=== PATIENT | female | born 1970 | race Hispanic/Latino ===

== ENCOUNTER 2018-09-01 16:42 | Emergency (ER) | payer BC, OTHER ==
--- OUTSIDE RECORDS SUMMARY | 2018-09-01 16:45 | XMS REPORT | Summary of Care ---
:1970 Author Organization [facility] Address [address] [place] [id number]- Encounter HQ Encntr_taya(FIN) [id number] Date(s): 01/21/16 - 01/21/[address] Professional Services provided by [facility] [place] [address]- Final: Other secondary pulmonary hypertension Discharge Disposition: Home or Self Care Attending Physician: Maritza Gunn MD Admitting Physician: Maritza Gunn MD Vital Signs Most recent to oldest 1 2 3 [Reference Range]: Height 157.48 cm (01/21/16 9:25 AM) Temperature Oral [96.4-99.1 98.1 DegF DegF] (01/21/16 9:00 AM) Blood Pressure [90-140/60-90 109/58 mmHg 118/68 mmHg 132/74 mmHg mmHg] (01/21/16 11:00 AM) (01/21/16 10:00 AM) (01/21/16 9:25 AM) Respiratory Rate [14-20 23 BRMIN 22 BRMIN 14 BRMIN BRMIN] *HI* *HI* (01/21/16 11:30 AM) (01/21/16 12:00 PM) (01/21/16 11:45 AM) Weight 69.591 kg (01/21/16 9:25 AM) Body Mass Index 28.06 m2 (01/21/16 9:25 AM) Problem List No data available for this section Allergies, Adverse Reactions, Alerts Substance Reaction Severity Status NKDA Active Medications acetaminophen 650 mg, 2 tab, Route: PO, Drug form: TAB, Q4H, Dosing Weight 68.182, kg, PRN For Temp > 100.4 F, Start date: 01/21/16 7:49:00 LAN ENGINEER, Duration: 30 day, Stop date: 02/20/16 7:48:00 LAN ENGINEER Notes: Do not exceed 4 gm/day. (Same as: Tylenol) Start Date: 01/21/16 Stop Date: 01/21/16 Status: DiscontinuedCaltrate 600 + D 1 tab, PO, Daily, 0 Refill(s) Start Date: 01/21/16 Status: OrderedDextrose 50% Syringe 25 gm, 50 mL, Route: IVP, Drug Form: INJ, Dosing Weight 68.182, kg, PRN, PRN Blood Glucose Results, Start date: 01/21/16 7:46:00 LAN ENGINEER, Duration: 30 day, Stop date: 02/20/16 7:45:00 LAN ENGINEER Start Date: 01/21/16 Stop Date: 01/21/16 Status: DiscontinuedDextrose 50% Syringe 12.5 gm, 25 mL, Route: IVP, Drug Form: INJ, Dosing Weight 68.182, kg, PRN, PRN Blood Glucose Results, Start date: 01/21/16 7:46:00 LAN ENGINEER, Duration: 30 day, Stop date: 02/20/16 7:45:00 LAN ENGINEER Start Date: 01/21/16 Stop Date: 01/21/16 Status: DiscontinuedDuexis 800 mg-26.6 mg oral tablet 1 tab, PO, Q8H, PRN Pain, # 90 tab, 0 Refill(s) Start Date: 01/21/16 Stop Date: 02/20/16 Status: Orderedenoxaparin 40 mg, 0.4 mL, Route: SUB-Q, Drug form: INJ, [id number], Dosing Weight 68.182, kg , Start date: 01/21/16 8:00:00 LAN ENGINEER, Duration: 30 day, Stop date: 02/19/16 8:00: 00 LAN ENGINEER Notes: (Same as: Lovenox) Start Date: 01/21/16 Stop Date: 01/21/16 Status: Discontinuedesomeprazole 20 mg oral delayed release capsule 20 mg=1 cap, PO, Daily, # 30 cap, 1 Refill(s) Start Date: 01/21/16 Status: Orderedglucagon 1 mg, Route: IM, Drug form: PDR/INJ, PRN, Dosing Weight 68.182, kg, PRN Blood Glucose Results, Startdate: 01/21/16 7:46:00 LAN ENGINEER, Duration: 30 day, Stop date: 02/20/16 7:45:00 LAN ENGINEER Start Date: 01/21/16 Stop Date: 01/21/16 Status: Discontinuedinsulin aspart 2 unit, 0.02 mL, Route: SUB-Q, Drug form: SOLN, TID-Before Meals, Dosing Weight 68.182, kg, PRN Blood Glucose Results, Start date: 01/21/16 7:46:00 LAN ENGINEER, Duration: 30 day, Stop date: 02/20/16 7:45:00 LAN ENGINEER Notes: Roll in palms of hands gently; Do not shake vigorously. (Same as: Lendinero)"single patient use only"WASTE: F/P - Black; E - Municipal Trash Bin Stable for 28 days at room temperature.Expires in days from Date Start Date: 01/21/16 Stop Date: 01/21/16 Status: Discontinuedinsulin aspart 1 unit, 0.01 mL, Route: SUB-Q, Drug form: SOLN, TID-Before Meals, Dosing Weight 68.182, kg, PRN Blood Glucose Results, Start date: 01/21/16 7:46:00 LAN ENGINEER, Duration: 30 day, Stop date: 02/20/16 7:45:00 LAN ENGINEER Notes: Roll in palms of hands gently; Do not shake vigorously. (Same as: Lendinero)"single patient use only"WASTE: F/P - Black; E - Municipal Trash Bin Stable for 28 days at room temperature.Expires in days from Date Start Date: 01/21/16 Stop Date: 01/21/16 Status: Discontinuedinsulin aspart 3 unit, 0.03 mL, Route: SUB-Q, Drug form: SOLN, TID-Before Meals, Dosing Weight 68.182, kg, PRN Blood Glucose Results, Start date: 01/21/16 7:46:00 LAN ENGINEER, Duration: 30 day, Stop date: 02/20/16 7:45:00 LAN ENGINEER Notes: Roll in palms of hands gently; Do not shake vigorously. (Same as: NovoLOG)"single patient use only"WASTE: F/P - Black; E - Municipal Trash Bin Stable for 28 days at room temperature.Expires in days from Date Start Date: 01/21/16 Stop Date: 01/21/16 Status: Discontinuedinsulin aspart 5 unit, 0.05 mL, Route: SUB-Q, Drug form: SOLN, TID-Before Meals, Dosing Weight 68.182, kg, PRN Blood Glucose Results, Start date: 01/21/16 7:46:00 LAN ENGINEER, Duration: 30 day, Stop date: 02/20/16 7:45:00 LAN ENGINEER Notes: Roll in palms of hands gently; Do not shake vigorously. (Same as: NovoLOG)"single patient use only"WASTE: F/P - Black; E - Municipal Trash Bin Stable for 28 days at room temperature.Expires in days from Date Start Date: 01/21/16 Stop Date: 01/21/16 Status: Discontinuedinsulin aspart 4 unit, 0.04 mL, Route: SUB-Q, Drug form: SOLN, TID-Before Meals, Dosing Weight 68.182, kg, PRN Blood Glucose Results, Start date: 01/21/16 7:46:00 LAN ENGINEER, Duration: 30 day, Stop date: 02/20/16 7:45:00 LAN ENGINEER Notes: Roll in palms of hands gently; Do not shake vigorously. (Same as: NovoLOG)"single patient use only"WASTE: F/P - Black; E - Municipal Trash Bin Stable for 28 days at room temperature.Expires in days from Date Start Date: 01/21/16 Stop Date: 01/21/16 Status: DiscontinuedNIFEdipine 30 mg oral tablet, extended release 30 mg=1 tab, PO, Daily, # 90 tab, 1 Refill(s) Start Date: 01/21/16 Status: Orderednystatin topical 100,000 units/g powder 1 appl, Route: TOP, PRN, Drug form: PWDR, PRN For Fungal Prophylaxis, Start date : 01/21/16 7:49:00 LAN ENGINEER, Duration: 30 day, Stop date: 02/20/16 7:48:00 LAN ENGINEER Notes: (Same as:Mycostatin, Nilstat) For external use only. Start Date: 01/21/16 Stop Date: 01/21/16 Status: DiscontinuedProAir HFA 1 - 2 puffs, PO, Q4H, PRN Wheezing / cough / shortness of breath, # 1 ea, 0 Refill(s) Start Date: 01/21/16 Stop Date: 02/15/16 Status: OrderedProventil HFA 90 mcg/inh inhalation aerosol with adapter 1 puff, INHALER, QID, PRN for wheezing, # 25 gm, 0 Refill(s) Start Date: 01/21/16 Status: OrderedSaline Flush 0.9% 10 ml, Route: MISC, Drug Form: INJ, Dosing Weight 68.182, kg, Q12H, Start date: 01/21/16 9:00:00 LAN ENGINEER, Duration: 30 day, Stop date: 02/19/16 21:00:00 LAN ENGINEER Notes: (Same as: BD Posiflush) Start Date: 01/21/16 Stop Date: 01/21/16 Status: DiscontinuedSaline Flush 0.9% 10 ml, Route: MISC, Drug Form: INJ, Dosing Weight 68.182, kg, PRN, PRN Line Flush, Start date: 01/21/16 7:49:00 LAN ENGINEER, Duration: 30 day, Stop date: 02/20/16 7 :48:00 LAN ENGINEER Notes: (Same as: BD Posiflush) Start Date: 01/21/16 Stop Date: 01/21/16 Status: DiscontinuedSynthroid 25 mcg (0.025 mg) oral tablet 25 microgram=1 tab, PO, Daily, # 90 tab, 1 Refill(s) Start Date: 01/21/16 Status: Ordered Results ELECTROLYTES Most recent to oldest [Reference Range]: 1 Sodium Lvl [135-145 mEq/L] 140 mEq/L (01/21/16 7:59 AM) Potassium Lvl [3.5-5.1 mEq/L] 3.8 mEq/L (01/21/16 7:59 AM) Chloride Lvl [95-109 mEq/L] 110 mEq/L *HI* (01/21/16 7:59 AM) CO2 [24-32 mEq/L] 22 mEq/L *LOW* (01/21/16 7:59 AM) AGAP [10.0-20.0 mEq/L] 11.8 mEq/L (01/21/16 7:59 AM) CHEM PANEL Most recent to oldest [Reference Range]: 1 Creatinine Lvl [0.50-1.40 mg/dL] 0.48 mg/dL *LOW* (01/21/16 7:59 AM) eGFR 119 mL/min/1.73m2 1 *NA* (01/21/16 7:59 AM) BUN [7-22 mg/dL] 14 mg/dL (01/21/16 7:59 AM) Glucose Lvl [70-99 mg/dL] 91 mg/dL (01/21/16 7:59 AM) Calcium Lvl [8.5-10.5 mg/dL] 8.4 mg/dL *LOW* (01/21/16 7:59 AM) Phosphorus [2.5-4.5 mg/dL] 2.7 mg/dL (01/21/16 7:59 AM) Magnesium Lvl [1.8-2.4 mg/dL] 2.0 mg/dL (01/21/16 7:59 AM) Lactic Acid Lvl [0.5-2.2 mMol/L] 0.6 mMol/L (01/21/16 7:59 AM) 1Result Comment: The eGFR is calculated using the CKD-EPI formula. In most young , healthy individualsthe eGFR will be >90 mL/min/1.73m2. The eGFR declines with age. An eGFR of 60-89 may be normal in some populations, particularly the elderly, for whom the CKD-EPI formula has not been extensively validated. Use of the eGFR is not recommended in the following populations: Individuals with unstable creatinine concentrations, including patients and those with serious co-morbid conditions. Patients with extremes in muscle mass or diet. The data above are obtained from the National Kidney Disease Education Program ( NKDEP) which additionally recommends that when the eGFR is used in patients with extremes of body mass index for purposesof drug dosing, the eGFR should be multiplied by the estimated BMI.CARDIAC ENZYMES Most recent to oldest [Reference Range]: 1 proBNP [0-125 pg/mL] 29 pg/mL (01/21/16 7:59 AM) PARATHYROID PROFILE Most recent to oldest [Reference Range]: 1 Ca Ion WB [1.05-1.25 mMol/L] 1.09 mMol/L (01/21/16 7:59 AM) Ca Norm WB [1.05-1.25 mMol/L] 1.09 mMol/L (01/21/16 7:59 AM) HEMATOLOGY Most recent to oldest [Reference Range]: 1 WBC [3.7-10.4 K/CMM] 6.6 K/CMM (01/21/16 7:59 AM) RBC [4.20-5.40 M/CMM] 4.45 M/CMM (01/21/16 7:59 AM) Hgb [12.0-16.0 g/dL] 13.4 g/dL (01/21/16 7:59 AM) Hct [36.0-48.0 %] 40.4 % (01/21/16 7:59 AM) MCV [80.0-98.0 fL] 90.7 fL (01/21/16 7:59 AM) MCH [27.0-31.0 pg] 30.2 pg (01/21/16 7:59 AM) MCHC [32.0-36.0 g/dL] 33.3 g/dL (01/21/16 7:59 AM) RDW [11.5-14.5 %] 13.8 % (01/21/16 7:59 AM) Platelet [133-450 K/CMM] 229 K/CMM (01/21/16 7:59 AM) MPV [7.4-10.4 fL] 9.2 fL (01/21/16 7:59 AM) Segs [45.0-75.0 %] 67.3 % (01/21/16 7:59 AM) Lymphocytes [20.0-40.0 %] 21.9 % (01/21/16 7:59 AM) Monocytes [2.0-12.0 %] 8.1 % (01/21/16 7:59 AM) Eosinophils [0.0-4.0 %] 1.7 % (01/21/16 7:59 AM) Basophils [0.0-1.0 %] 1.0 % (01/21/16 7:59 AM) Segs-Bands # [1.5-8.1 K/CMM] 4.4 K/CMM (01/21/16 7:59 AM) Lymphocytes # [1.0-5.5 K/CMM] 1.4 K/CMM (01/21/16 7:59 AM) Monocytes # [0.0-0.8 K/CMM] 0.5 K/CMM (01/21/16 7:59 AM) Eosinophils # [0.0-0.5 K/CMM] 0.1 K/CMM (01/21/16 7:59 AM) Basophils # [0.0-0.2 K/CMM] 0.1 K/CMM (01/21/16 7:59 AM) PT [12.0-14.7 seconds] 13.9 seconds (01/21/16 7:59 AM) INR [0.85-1.17] 1.05 (01/21/16 7:59 AM) PTT [22.9-35.8 seconds] 34.5 seconds (01/21/16 7:59 AM) Immunizations No data available for this section Procedures Procedure Date Related Diagnosis Body Site hysterectomy Social History Social History Type Response Substance Abuse Use: None. Alcohol Never Smoking Status Never smoker; Exposure to Tobacco Smoke None; Cigarette Smoking Last 365 Days No; Reg Smoking Cessation Counseling No Assessment and Plan No data available for this section
--- OUTSIDE RECORDS SUMMARY | 2018-09-01 16:45 | XMS REPORT | Summary of Care ---
:1970 Author Organization [facility] Address [address] [place] [id number]- Encounter HQ Jamalntr_taya(FIN) [id number] Date(s): 10/16/15 - 10/16/[address] [address]- Discharge Disposition: Home or Self Care Attending Physician: Maritza Gunn MD Referring Physician: Maritza Gunn MD Vital Signs Most recent to oldest [Reference Range]: 1 Height 165.1 cm (10/16/15 2:17 PM) Weight 68.182 kg (10/16/15 2:17 PM) Body Mass Index 25.01 m2 (10/16/15 2:17 PM) Problem List No data available for this section Allergies, Adverse Reactions, Alerts Substance Reaction Severity Status NKDA Active Medications No data available for this section Results No data available for this section Immunizations No data available for this section Procedures No data available for this section Social History Social History Type Response Assessment and Plan No data available for this section
--- OUTSIDE RECORDS SUMMARY | 2018-09-01 16:45 | XMS REPORT | Summary of Care ---
:1970 Author Care Team Providers Name Role Phone Maritza Gunn Primary Care Physician Encounter HQ Encntr_alias([facility]) [id number] Date(s): 05/28/14 - 05/28/[address] Discharge Disposition: Home Physician Attending: Maritza Gunn MD Physician_Referring: Maritza Gunn MD Vital Signs No data available for this section Problem List No data available for this [...]
--- OUTSIDE RECORDS SUMMARY | 2018-09-01 16:45 | XMS REPORT | Clinical Summary ---
:1970 Author Organization [facility] Address [address] [place] [address] Care Team Providers Name Role Phone Beti Guadalupe Primary Care Provider Allergies No Known Allergies Medications Medication Sig Dispensed Refills Start Date End Date Status cyanocobalamin 1,000 INJECT 1 CC SQ 3 11/20/2016 Active mcg/mL injection EVERY WEEK X 3 MONTHS, THEN 1 CC SQ TWICE A MONTH X 2 MONTHS, THEN 1 CC SQ MONTHLY esomeprazole (NexIUM) 20 Take 20 mg by 1 12/19/2016 Active MG capsule mouth once daily. furosemide (LASIX) 20 mg TAKE 1 TABLET 0 01/24/2017 Active tablet DAILY DIRECTED. hydroCHLOROthiazide Take 25 mg by 11 12/12/2016 Active (HYDRODIURIL) 25 MG mouth once tablet daily. hydrOXYzine (ATARAX) 25 Take 25 mg by 4 01/21/2017 Active MG tablet mouth nightly as needed. levothyroxine (SYNTHROID, TAKE 1 TABLET 1 12/16/2016 Active LEVOXYL) 50 mcg tablet BY MOUTH 30 MINUTES BEFORE BREAKFAST NIFEdipine XL (PROCARDIA Take 30 mg by 1 12/19/2016 Active XL) 30 MG 24 hr tablet mouth once daily. NIFEdipine CC (ADALAT CC) TAKE 1 TABLET 0 12/12/2016 Active 30 MG 24 hr tablet DAILY DIRECTED. pilocarpine (SALAGEN) 5 Take 5 mg by 5 01/15/2017 Active MG tablet mouth 3 (three) times a day. potassium chloride TAKE 1 PACKET 0 01/25/2017 Active (KLOR-CON) 20 mEq packet BY MOUTH DAILY. tiZANidine (ZANAFLEX) 4 Take 4 mg by 0 12/12/2016 Active MG tablet mouth nightly. albuterol (PROAIR Inhale 2 puffs 0 Active HFA,PROVENTIL every 6 (six) HFA,VENTOLIN HFA) 90 hours as needed mcg/actuation inhaler for wheezing. tafluprost, PF, (ZIOPTAN, 1 drop daily. 0 Active PF,) 0.0015 % dropperette Active Problems No known active problems Family History Medical History Relation Name Comments Hypertension Father Heart disease Maternal Grandfather Diabetes Maternal Grandmother Hypertension Mother Migraines Mother Relation Name Status Comments Father Alive Maternal Grandfather Maternal Grandmother Mother Alive Social History Tobacco Use Types Packs/Day Years Used Date Never Smoker Smokeless Tobacco: Never Used Tobacco Cessation: Counseling Given: No Alcohol Use Drinks/Week oz/Week Comments Yes 2 Glasses of wine 1.2 per week Sex Assigned at Date Recorded Not on file Job Start Date Occupation Industry Not on file Not on file Not on file Travel History Travel Start Travel End No recent travel history available. Last Filed Vital Signs Not on file Plan of Treatment Health Maintenance Due Date Last Done Comments INFLUENZA VACCINE 09/20/2018 Results Not on fileafter 08/31/2017 Advance Directives Patient has advance care planning documents on file. For more information, please contact:[place] [address]
--- OUTSIDE RECORDS SUMMARY | 2018-09-01 16:45 | XMS REPORT | Summary of Care ---
:1970 Author Organization [facility] Address [address] [place], [place] [address]- Encounter HQ Encntr_alias(FIN) [id number] Date(s): 01/11/16 - 01/11/[address] [address]- Discharge Disposition: Home or Self Care Attending Physician: Maritza Gunn MD Referring Physician: Maritza Gunn MD Vital Signs No data [...]
--- OUTSIDE RECORDS SUMMARY | 2018-09-01 16:45 | XMS REPORT | Continuity of Care Document ---
:1970 Author Organization [employer] Care Team Providers Name Role Phone [employer] Unavailable Unavailable Problems Problem Status Onset Classification Date Comments Source Date Reported SHORTNESS OF Active [facility] BREATH 9 Medical Center CCL/ RHC Active [address] 6 MFU Active [address] BDDC-DYSPHAGIA Active [address] NEW PT CONSULT Active [address] R06.2 - WHEEZING Active [facility] [address] [place] RT HEART CATH, Active [facility] PULM ART 6 Medical HYPERTENSION Center R06.02 - Active [facility] SHORTNESS OF [address] [place] BREATH R06.02 - Active [facility] SHORTNESS OF 6 [place] BREATH M34.9 - "SY R06.2/ M34.9/ Active [facility] 6 Medical Center SECONDARY Active [facility] PULMONARY Medical HYPERTENSION; Center SHORTN ASTHMA; RAYNAUDS Active [facility] PHENOMENON; 6 Medical SECONDARY P Center ASTHMA Active [place] [id number] [facility] Final: Other 01/24/2016 [facility] secondary Medical pulmonary Center hypertension OTHER SECONDARY Active [facility] PULMONARY [facility] HYPERTENSION Center Medications Medication Details Route Status Patient Ordering Order Source Instructions Provider Date Famotidine 26.6 1 tab, PO, Active [facility] MG / Ibuprofen Q8H, PRN 016 Medical 800 MG Oral Pain, # 90 Center Tablet [Duexis] tab, 0 Refill(s) Levothyroxine 25 Active [facility] Sodium 0.025 MG microgram=1 016 Medical Oral Tablet tab, PO, Center [Synthroid] Daily, # 90 tab, 1 Refill(s) 200 ACTUAT 1 puff, Active [facility] Albuterol 0.09 INHALER, 016 Medical MG/ACTUAT QID, PRN for Center Metered Dose wheezing, # Inhaler 25 gm, 0 [Proventil] Refill(s) Caltrate 600 + D 1 tab, PO, Active [facility] Daily, 0 016 Medical Refill(s) Center ProAir HFA 1 - 2 puffs, Active [facility] PO, Q4H, PRN 016 Medical Wheezing / Center cough / shortness of breath, # 1 ea, 0 Refill(s) 24 HR Nifedipine 30 mg=1 tab, Active [place] 30 MG Extended PO, Daily, # 016 Medical Release Tablet 90 tab, 1 Center Refill(s) Esomeprazole 20 20 mg=1 cap, Active [facility] MG Enteric PO, Daily, # 016 Medical Coated Capsule 30 cap, 1 Center Refill(s) Saline Flush 10 ml, Inactive [facility] 0.9% [facility]: Center INJ, Dosing Weight 68.182, kg, Q12H, Start date: 01/21/16 9:00:00 PHARMACY MANAGER, Duration: 30 day, Stop date: 02/19/16 21:00:00 CSTNotes: (Same as: BD Posiflush) Enoxaparin 40 mg, 0.4 Inactive [facility] mL, Route: [facility] SUB-Q, Drug Center form: INJ, [id number], Dosing Weight 68.182, kg, Start date: 01/21/16 8:00:00 PHARMACY MANAGER, Duration: 30 day, Stop date: 02/19/16 8:00:00 CSTNotes: (Same as: Lovenox) Saline Flush 10 ml, Inactive [facility] 0.9% Route: [facility] Form: Center INJ, Dosing Weight 68.182, kg, PRN, PRN Line Flush, Start date: 01/21/16 7:49:00 PHARMACY MANAGER, Duration: 30 day, Stop date: 02/20/16 7:48:00 CSTNotes: (Same as: BD Posiflush) Acetaminophen 650 mg, 2 Inactive [facility] tab, Route: [facility] PO, Drug Center form: TAB, Q4H, Dosing Weight 68.182, kg, PRN For Temp > 100.4 F, Start date: 01/21/16 7:49:00 PHARMACY MANAGER, Duration: 30 day, Stop date: 02/20/16 7:48:00 CSTNotes: Do not exceed 4 gm/day. (Same as: Tylenol) Nystatin 100 1 appl, Inactive [facility] UNT/MG Topical Route: TOP, [facility] Medical Powder PRN, Drug Center form: PWDR, PRN For Fungal Prophylaxis, Start date: 01/21/16 7:49:00 PHARMACY MANAGER, Duration: 30 day, Stop date: 02/20/16 7:48:00 CSTNotes: (Same as:Mycostati n, Nilstat) For external use only. Insulin, Aspart, 2 unit, 0.02 Inactive [facility] Human mL, Route: 016 Medical SUB-Q, Drug Center form: SOLN, TID-Before Meals, Dosing Weight 68.182, kg, PRN Blood Glucose Results, Start date: 01/21/16 7:46:00 PHARMACY MANAGER, Duration: 30 day, Stop date: 02/20/16 7:45:00 CSTNotes: Roll in palms of hands gently; Do not shake vigorously. (Same as: NovoLOG) "single patient use only" WASTE: F/P - Black; E - Municipal Trash Bin Stable for 28 days at room temperature. Expires in days from __Date Dextrose 50% 25 gm, 50 Inactive [facility] Syringe mL, Route: 016 Medical IVP, Drug Center Form: INJ, Dosing Weight 68.182, kg, PRN, PRN Blood Glucose Results, Start date: 01/21/16 7:46:00 PHARMACY MANAGER, Duration: 30 day, Stop date: 02/20/16 7:45:00 PHARMACY MANAGER Glucagon 1 mg, Route: Inactive [facility] IM, Drug 016 Medical form: Center PDR/INJ, PRN, Dosing Weight 68.182, kg, PRN Blood Glucose Results, Start date: 01/21/16 7:46:00 PHARMACY MANAGER, Duration: 30 day, Stop date: 02/20/16 7:45:00 PHARMACY MANAGER Allergies, Adverse Reactions, Alerts No Known Medication Allergies Immunizations No Data Provided for This Section Results Order Name Results Value Reference Date Interpretation Comments Source Range CARDIAC proBNP 29 0 - 125 01/20 [facility] ENZYMES [facility] CHEM PANEL Magnesium Lvl 2.0 1.8 - 2.4 01/20 [facility]2015 [facility] CHEM PANEL Lactic Acid 0.6 0.5 - 2.2 01/20 [facility] Lvl /2015 [facility] CHEM PANEL Phosphorus 2.7 2.5 - 4.5 01/20 [facility]2015 [facility] ELECTROLYTES AGAP 11.8 10.0 - 12 [facility] 20.0 [facility] ELECTROLYTES eGFR 119 01/20 [facility] Comment: The [facility] eGFR is Center calculated using the CKD-EPI formula. In most young, healthy individuals the eGFR will be >90 mL/min/1.73m2 . The eGFR declines with age. An eGFR of 60-89 may be normal in some populations, particularly the elderly, for whom the CKD-EPI formula has not been extensively validated. Use of the eGFR is not recommended in the following populations:< br/>
Ayde viduals with unstable creatinine concentration s, including patients and those with serious co-morbid conditions.<b r/>
Patie nts with extremes in muscle mass or diet.

The data above are obtained from the National Kidney Disease Education Program (NKDEP) which additionally recommends that when the eGFR is used in patients with extremes of body mass index for purposes of drug dosing, the eGFR should be multiplied by the estimated BMI. ELECTROLYTES BUN 14 7 - 22 01/20 [facility] ELECTROLYTES Creatinine 0.48 0.50 - 01/20 [facility] Lvl 1.40 [facility] ELECTROLYTES Sodium Lvl 140 135 - 145 01/[address] ELECTROLYTES Potassium Lvl 3.8 3.5 - 5.1 01/[address] ELECTROLYTES Calcium Lvl 8.4 8.5 - 10.5 01/[address] ELECTROLYTES CO2 22 24 - 32 01/[address] ELECTROLYTES Chloride Lvl 110 95 - 109 01/[address] ELECTROLYTES Glucose Lvl 91 70 - 99 01/20 [facility]2015 [facility] HEMATOLOGY Hgb 13.4 12.0 - 12 [facility] 16.0 [facility] HEMATOLOGY RBC 4.45 4.20 - 12/ [place] 5.40 /2016 [facility] HEMATOLOGY WBC 6.6 3.7 - 10.4 12/ [facility] HEMATOLOGY MCH 30.2 27.0 - 12/ [place] 31.0 /2016 [facility] HEMATOLOGY Hct 40.4 36.0 - 12/ [place] 48.0 /2016 [facility] HEMATOLOGY MCV 90.7 80.0 - 12/ [place] 98.0 /2016 [facility] HEMATOLOGY MPV 9.2 7.4 - 10.4 12/ [facility] HEMATOLOGY Platelet 229 133 - 450 12/ [facility] HEMATOLOGY MCHC 33.3 32.0 - 12/ [place] 36.0 /2015 [facility] HEMATOLOGY RDW 13.8 11.5 - 12 [place] 14.5 /2015 [facility] HEMATOLOGY INR 1.05 0.85 - 01/20 [place] 1.17 /2015 [facility] HEMATOLOGY PTT 34.5 22.9 - 12 [place] 35.8 /2016 [facility] HEMATOLOGY PT 13.9 12.0 - 12 [place] 14.7 /2015 [facility] HEMATOLOGY Lymphocytes 21.9 20.0 - 12/ [place] 40.0 /2016 [facility] HEMATOLOGY Segs 67.3 45.0 - 12/ [place] 75.0 /2016 [facility] HEMATOLOGY Segs-Bands # 4.4 1.5 - 8.1 12 [facility] HEMATOLOGY Basophils 1.0 0.0 - 1.0 12 [facility] HEMATOLOGY Monocytes 8.1 2.0 - 12.0 12 [facility] HEMATOLOGY Eosinophils 1.7 0.0 - 4.0 12 [facility] HEMATOLOGY Monocytes # 0.5 0.0 - 0.8 12 [facility] HEMATOLOGY Lymphocytes # 1.4 1.0 - 5.5 12 [facility] HEMATOLOGY Basophils # 0.1 0.0 - 0.2 12 [facility] HEMATOLOGY Eosinophils # 0.1 0.0 - 0.[address] [place] [address] PARATHYROID Ca Norm WB 1.09 1.05 - 01/20 [place] PROFILE 1.25 [facility] PARATHYROID Ca Ion WB 1.09 1.05 - [facility] PROFILE . [facility] Pathology Reports No Data Provided for This Section Diagnostic Reports Report Value Date Source Chest Pulmonary EXAM: CTA CHEST WITH CONTRAST, PULMONARY EMBOLISM PROTOCOL 03/02/2017 [facility] [place] Embolism CTA DATE: 03/02/2017 3:22 PM PHARMACY MANAGER INDICATION: - R06.02 Shortness of breath COMPARISON: There is a noncontrast CT chest 01/12/2016 TECHNIQUE: Volumetric CT acquisition of the chest, during pulmonary arterial phase, after intravenous contrast. Axial, sagittal, coronal, and oblique MIP reconstructions are created at the acquisition workstation. IV Contrast: 100 mL of Omnipaque 350 DLP: 880 mGy-cm FINDINGS: Lines and tubes: None. Lower neck: Visualized thyroid gland and lower neck are within normal limits. Heart and Mediastinum: The right atrium and right ventricle are enlarged however the left atrium and left ventricle are normal in size. A small amount of contrast refluxes into the IVC. There is no pericardial effusion. No appreciable atherosclerotic disease of the coronary arteries were the aorta. The aorta and the pulmonary trunk are normal in caliber. There is no pulmonary embolus. Lymph Nodes: There is no hilar, mediastinal, axillary or internal mammary lymphadenopathy. Lungs, airways, and pleura: No obvious pleural effusion. Please note that the costophrenic sulcus on the right side is not included on this exam. Airways are normal in caliber. There is subsegmental atelectasis in the lingula. There is a 2 mm nodule in the right upper lobe abutting the major fissure on axial image 158. There is also a 2 mm nodule in the right lung base on axial image 47. Calcified granulomas are scattered throughout both lungs. Esophagus and Upper abdomen: There are calcified granulomas throughout the spleen. Otherwise the visualized upper abdomen is within normal limits. Bones and soft tissues: No gross bony abnormalities. There is increased venous collateral flow in the left upper extremity and left chest wall. IMPRESSION: 1. There is no pulmonary embolus. 2. Enlargement of the right atrium and right ventricle as well as contrast reflux into the IVC is indicative of elevated right heart pressures. Further evaluation with echocardiography is suggested. 3. Subsegmental atelectasis in the lingula. 4. Prior granulomatous disease. 5. Venous collaterals in the left upper extremity and left chest may be due to increased central venous pressures or this may be due to narrowing of disc left subclavian vein caused by positioning of th e patient's left upper extremity. However if clinically warranted, an ultrasound can be used to evaluate for stenosis of the left subclavian vein. Ext Lower Venous EXAM: US BILATERAL LOWER EXTREMITY VENOUS DOPPLER 2017 MIN [facility] Doppler Bilat US DATE: 03/02/2017 2:42 PM PHARMACY MANAGER INDICATION: Bilateral leg swelling. Secondary pulmonary hypertension. COMPARISON: None. TECHNIQUE: Multiplanar grayscale, color Doppler and spectral Doppler ultrasound of the bilateral lower extremity veins. FINDINGS: Right Thigh Veins: Common Femoral: Patent. Femoral (SFV): Patent. Popliteal: Patent. Proximal Greater Saphenous: Patent. Deep Femoral Veins: Patent. Left Thigh Veins: Common Femoral: Patent. Femoral (SFV): Patent. Popliteal: Patent. Proximal Greater Saphenous: Patent. Deep Femoral Veins: Patent. Other: None. IMPRESSION: 1. No deep venous thrombosis (DVT) at the bilateral lower extremities. Chest 1view DX EXAM: XR CHEST 1 VIEW 01/21/2016 [facility] DATE: 01/21/2016 7:52 AM PHARMACY MANAGER Center INDICATION: Crackles COMPARISON: None FINDINGS: Right IJ [place] catheters present with tip overlying the right pulmonary artery. The cardiac silhouette is mildly enlarged. No central pulmonary venous congestion is identified, however. While evalua tion is limited given semi-erect positioning, no distinct pneumothorax is identified. No focal consolidation is present. IMPRESSION: 1. Right IJ [place] catheter. 2. Mild cardiomegaly. Chest wo contrast CT EXAM: CT CHEST WITHOUT CONTRAST 01/12/2016 MIN [facility] DATE: 01/12/2016 9:14 AM PHARMACY MANAGER INDICATION: R06.02 Shortness of breath COMPARISON: None TECHNIQUE: Volumetric CT acquisition of the chest was performed without intravenous contrast. Axial, sagittal and coronal reconstructions. High- resolution technique. IV Contrast: None. DLP: 767 mGy-cm FINDINGS: Lines and Tubes: None. Heart and Great Vessels: The aorta and main pulmonary artery measure 3.1 and 2.4 cm. respectively. The cardiothoracic radio measures 12/27. No significant pericardial effusion is present. No significa nt coronary artery vascular calcifications are present. Coronary artery branching pattern and great vessel branching pattern of the aortic arch are routine. Lymph Nodes: Limited given lack of IV contrast. No distinct suspicious adenopathy. Lungs: No significant pleural effusion is present. There is minimal biapical scarring with no pneumothorax identified. Trachea and central bronchi are unremarkable. Minimal dependent atelectasis is pre sent. No fibrosis, bronchiectasis, mosaic attenuation/air trapping, or significant reticular opacities are identified. No focal consolidation or suspicious pulmonary nodule is identified. There are a fe w tiny calcified granulomata at the right lung base. Upper abdomen: Splenic granulomata are present. Upper abdomen otherwise unremarkable. Bones and Soft Tissues: No acute osseous findings. IMPRESSION: 1. Essentially unremarkable high resolution CT of the chest. Specifically, no honeycombing, bronchiectasis, air trapping, or fibrotic changes are identified. 2. Evidence of prior granulomatous disease. Lung EXAM: NM Pulmonary Ventilation and Perfusion Imaging 01/11/2016 [facility] ventilation/perfusion DATE: 01/11/2016 10:26 AM [facility] Center scan NM INDICATION: shortness of breath/Systemic Sclerosis TECHNIQUE: After inhalation of 22.3 mCi of Xe-133 gas posterior images of the lungs were obtained. Subsequently, the patient was injected with 2.8 mCi of Tc-99m MAA and multiple static images of the lungs were obtained in different projections. FINDINGS: Ventilation images demonstrate homogeneous uptake in the lungs. Subsequently there is slightly delayed washout of xenon gas with minimal evidence of air trapping in the right lung base. Perfusion images demonstrate homogeneous uptake in the lungs. There are no segmental or subsegmental perfusion defects seen on perfusion images to suggest pulmonary embolism. IMPRESSION: Low probability for pulmonary embolism. Minimal air trapping in right lower lung. Consultation Notes No Data Provided for This Section Discharge Summaries No Data Provided for This Section History and Physicals No Data Provided for This Section Vital Signs Vital Sign Value Date Comments Source Respitory Rate 23 01/21/2016 [facility] Respitory Rate 22 01/21/2016 [facility] Respitory Rate 14 01/21/2016 [facility] Systolic (mm Hg) 109 01/21/2016 [facility] Diastolic (mm Hg) 58 01/21/2016 [facility] Systolic (mm Hg) 118 01/21/2016 [facility] Diastolic (mm Hg) 68 01/21/2016 [facility] Systolic (mm Hg) 132 01/21/2016 [facility] Diastolic (mm Hg) 74 01/21/2016 [facility] Weight 69.591 01/21/2016 [facility] Height 157.48 cm 01/21/2016 [facility] BMI Calculated 28.06 01/21/2016 [facility] Temperature Oral (F) 98.1 F 01/21/2016 [facility] Weight 68.182 10/16/2015 [facility] Height 165.1 cm 10/16/2015 [facility] BMI Calculated 25.01 10/16/2015 [facility] Encounters Location Location Encounter Encounter Reason Attending ADM DC Status Source Details Type Number For Provider Date Date Visit [facility] [id number] Maritza Gunn 05/28 05/29 [facility]2014 [facility] Out[facility] [id number] Maritza Gunn 10/15 10/16 [facility] [id number] Maritza Gunn 01/10 01/11 [id number] Maritza Gunn 01/11 01/12 [facility]2015 [facility] Inpatient [id number] Maritza Gunn 01/20 01/20 [facility] Procedures Procedure Code Date Perfomer Comments Source [id number] [facility] Assessment and Plan No Data Provided for This Section Plan of Care No Data Provided for This Section Social History Social History Date Source Social History TypeResponse 01/21/2016 [facility] Substance Abuse Use: None. Alcohol Never Smoking Status Never smoker; Exposure to Tobacco Smoke None; Cigarette Smoking Last 365 Days No; Reg Smoking Cessation Counseling No Social History TypeResponse 01/13/2016 [facility] Family History No Data Provided for This Section Advance Directives No Data Provided for This Section Functional Status No Data Provided for This Section
--- OUTSIDE RECORDS SUMMARY | 2018-09-01 16:45 | XMS REPORT | Summary of Care ---
:1970 Author Organization [facility] Address [address] [place], [place] [id number]- Encounter HQ Encntr_alias(FIN) [id number] Date(s): 01/12/16 - 01/12/16 [facility] [place] [id number] [place] [address]- [phone] Discharge Disposition: Home or Self Care Attending Physician: Maritza Gunn MD Vital Signs No [...]
--- OUTSIDE RECORDS SUMMARY | 2018-09-01 16:45 | XMS REPORT ---
:1970 Author Organization [facility] Address [address] [place] [address] Dr. Carmona [address] [place] [id number] Care Team Providers Name Role Phone Unavailable Unavailable Unavailable Problems This patient has no known problems. Allergies, Adverse Reactions, Alerts This patient has no known allergies or adverse reactions. Medications This patient has no known medications. Encounters Start End Encounter Admission Attending Care Care Encounter Date/Time Date/Time Type Type Clinicians Facility Department ID 2018-07-11 2018-07-11 Outpatient [facility] [id number] 09:30:00 09:30:00
[2018-09-01] MEDS ORDERED: KETOROLAC 30 MG/ML INJ ONE (17:52)
[2018-09-01] MEDS ORDERED: NA CHLORIDE 0.9% 1,000 ML ONE (17:52)
[2018-09-01] MEDS ORDERED: CLINDAMYCIN 900MG/D5W 900 MG/50 ML IVPB IV ONE (17:52)
[2018-09-01 18:06] LABS: Absolute Lymphocytes (CBC) 1.8 K/uL (0.7-4.9); Basophils % 0.6 % (0-1.3); Eosinophils % 2.3 % (0-4.4); Hematocrit 40.9 % (36.0-45.0); Lymphocytes % 20.7 % (15.3-44.8); MPV 8.6 fL (7.6-11.3); Monocytes % 8.3 % (3.3-12.3); RBC Red Blood Cell Count 4.47 M/uL (3.86-4.86)
[2018-09-01 18:17] LABS: Protime INR 0.94
[2018-09-01 18:18] LABS: BUN Blood Urea Nitrogen 19 mg/dL (7-18); Bicarbonate 26 mmol/L (21-32); Glucose Level 98 mg/dL (74-106); Potassium 3.3 mmol/L (3.5-5.1); Sodium Level 138 mmol/L (136-145)
--- NOTE | 2018-09-01 18:57 | RAD REPORT ---
EXAM DESCRIPTION: CT - Soft Tissue Neck W/Contr CLINICAL HISTORY: jaw swelling Pain and swelling to the jaw COMPARISON: No comparisons TECHNIQUE All CT scans are performed using dose optimization technique as appropriate and may includ e automated exposure control or mA/KV adjustment according to patient size. FINDINGS: Periapical abscess is present measuring 9 mm involving the right first mandibular molar. A subperiosteal abscess along the buccal surface of the right mandibular molar is present measuring 7 x 4 mm. There is significant soft tissue swelling and edema along the right aspect of the mandible. No intrinsic or extrinsic neck mass otherwise seen. Parapharyngeal fat triangles are symmetric. No ve nous thrombosis seen. IMPRESSION: Periapical abscess measuring 9 mm involving the right first mandibular molar with associ ated subperiosteal odontogenic abscess as detailed.
--- NOTE | 2018-09-01 20:16 | EDPHYS ---
Physician Documentation [facility] Name: Marya Garcia Age: 48 yrs Sex: Female : 1970 Arrival Date: 09/01/2018 Time: 16:44 Bed 13 Private MD: ED Physician Chago Currie HPI: 09/01 17:35 This 48 yrs old Female presents to ER via Ambulatory with complaints of Jaw cp Pain - Swelling. 17:35 The patient presents with pain. The problem is located in the right lower jaw. cp 17:35 Onset: The symptoms/episode began/occurred yesterday, and became worse today. Duration: cp The symptoms are continuous, and are steadily getting worse. Associated signs and symptoms: Pertinent positives: swelling, facial, Pertinent negatives: fever, inability to eat. 17:35 The patient has been recently seen by a physician: in [place] ED, with similar cp presenting complaints, was given a prescription for antibiotics. 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 iw Historical: - Allergies: 17:09 No Known Allergies; iw - Home Meds: 17:09 amitriptyline 25 mg Oral tab 1 tab once daily [Active]; furosemide 20 mg Oral tab 1 tab iw once daily [Active]; Dexilant 30 mg oral CpDB 1 cap once daily [Active]; hydroxyzine HCl 25 mg Oral tab [Active]; nifedipine 90 mg Oral TbER 1 tab once daily [Active]; potassium chloride 20 mEq Oral TbER once daily [Active]; Duexis 800-26.6 mg oral tab 1 tab 3 times per day [Active]; ProAir HFA 90 mcg/actuation inhalation HFAA [Active]; tizanidine 4 mg oral cap [Active]; Flovent Inhl [Active]; pilocarpine Opht [Active]; - PMHx: 17:09 scleroderma; pulmonary htn; Glaucoma; Asthma; iw - PSHx: 17:09 Hysterectomy; Tonsillectomy; iw - Immunization history:: Adult Immunizations up to date. - Social history:: Smoking status: Patient/guardian denies using tobacco. - Ebola Screening: : Patient negative for fever greater than or equal to 101.5 degrees Fahrenheit, and additional compatible Ebola Virus Disease symptoms Patient denies exposure to infectious person Patient denies travel to an Ebola-affected area in the 21 days before illness onset No symptoms or risks identified at this time. ROS: 17:40 ENT: Positive for dental pain, Negative for drainage from ear(s), ear pain, sore cp throat, difficulty swallowing, difficulty handling secretions, hoarseness. 17:40 Eyes: Negative for injury, pain, redness, and discharge. cp 17:40 Constitutional: Negative for body aches, chills, fever, poor PO intake. 17:40 Cardiovascular: Negative for chest pain, palpitations. 17:40 Respiratory: Negative for cough, shortness of breath, wheezing. 17:40 Neuro: Negative for altered mental status, headache, weakness. 17:40 All other systems are negative. Exam: 17:50 Constitutional: The patient appears in no acute distress, alert, awake, cp non-diaphoretic, non-toxic, well developed, well nourished. 17:50 Head/face: Noted is swelling, that is moderate, of the right jaw, tenderness, that is cp severe, of the right jaw. 17:50 Eyes: Periorbital structures: appear normal, Conjunctiva: normal, no exudate, no injection, Sclera: no appreciated abnormality, Lids and lashes: appear normal, bilaterally. 17:50 ENT: External ear(s): are unremarkable, Ear canal(s): are normal, clear, TM's: bulging, is not appreciated, bilaterally, dullness, bilaterally, erythema, is not appreciated, bilaterally, Nose: is normal, Mouth: Lips: moist, Oral mucosa: pink and intact, moist, Posterior pharynx: is normal, airway is patent, no erythema, no exudate, Dental exam: dental caries, that is mild, diffusely, gum swelling, that is moderate, specifically in the right outer lower gumline, pain, that is severe, specifically in the lower right first molar (#30), Voice: is normal. 17:50 Neck: ROM/movement: is normal, is supple, without pain, no range of motions limitations, no meningismus, no nuchal rigidity. 17:50 Chest/axilla: Inspection: normal, Palpation: is normal, no crepitus, no tenderness. 17:50 Cardiovascular: Rate: normal, Rhythm: regular. 17:50 Respiratory: the patient does not display signs of respiratory distress, Respirations: normal, no use of accessory muscles, no retractions, no splinting, no tachypnea, labored breathing, is not present, Breath sounds: are clear throughout, no decreased breath sounds, no stridor, no wheezing. 17:50 Abdomen/GI: Exam negative for discomfort, distension, guarding, Inspection: abdomen appears normal. Vital Signs: 17:09 BP 145 / 87; Pulse 92; Resp 16; Temp 98.5(TE); Pulse Ox 97% on R/A; Weight 65.77 kg; iw Height 5 ft. 5 in. (165.10 cm); Pain 7/10; 18:18 BP 113 / 72; Pulse 70; Resp 16; Temp 97.6(TE); Pulse Ox 98% on R/A; mh5 20:30 BP 111 / 78; Pulse 68; Resp 16; Pulse Ox 97% on R/A; jb4 17:09 Body Mass Index 24.13 (65.77 kg, 165.10 cm) iw MDM: 17:20 Patient medically screened. cp 18:00 Differential diagnosis: dental caries, dental abscess, pericoronitis. cp 19:10 Data reviewed: vital signs, nurses notes, lab test result(s), radiologic studies, CT cp scan. 20:12 Physician consultation: DR Mcwilliams, [facility] surgeon with office in [place], will see cp patient Monday09-03-2018 for clinic follow-up. 20:15 Response to treatment: the patient's symptoms have markedly improved after treatment, cp and as a result, I will discharge patient. 20:15 Counseling: I had a detailed discussion with the patient and/or guardian regarding: the cp historical points, exam findings, and any diagnostic results supporting the discharge/admit diagnosis, lab results, radiology results, the need for outpatient follow up, maxillary and facial surgery, to return to the emergency department if symptoms worsen or persist or if there are any questions or concerns that arise at home. 09/01 17:33 Order name: CBC with Diff; Complete Time: 19:05 cp 09/01 17:33 Order name: BMP; Complete Time: 19:05 cp 09/01 17:33 Order name: PT-INR; Complete Time: 19:05 cp 09/01 17:33 Order name: Ptt, Activated; Complete Time: 19:05 cp 09/01 17:58 Order name: Soft Tissue Neck W/Contr; Complete Time: 19:05 EDOK 09/01 17:33 Order name: IV; Complete Time: 17:51 Administered Medications: 17:50 Drug: NS 0.9% 1000 ml Route: IV; Rate: 1 bolus; Site: left antecubital; rb1 18:20 Follow up: IV Status: Completed infusion rb1 17:50 Drug: Clindamycin 900 mg Route: IVPB; Infused Over: 30 mins; Site: left antecubital; rb1 18:05 Follow up: Response: No adverse reaction rb1 18:19 Follow up: IV Status: Completed infusion rb1 17:50 Drug: TORadol - Ketorolac 15 mg Route: IVP; Site: left antecubital; rb1 18:05 Follow up: Response: No adverse reaction; Pain is decreased rb1 20:05 Drug: fentaNYL (PF) 25 mcg Route: IVP; Site: left antecubital; jb4 21:04 Drug: Potassium Effervescent Tablet 50 mEq Route: PO; jb4 21:04 Drug: Zofran 4 mg Route: IVP; Site: left antecubital; jb4 Disposition: 21:15 Chart complete. 09/02 07:20 Co-signature as Attending Physician, Chago Currie MD. rn Disposition: 09/01/18 20:16 Discharged to Home. Impression: Periapical abscess without sinus - right lower first mandibular molar. - Condition is Stable. - Discharge Instructions: Dental Abscess. - Prescriptions for Clindamycin HCl 300 mg Oral Capsule - take 1 capsule by ORAL route every 6 hours for 10 days; 40 capsule. Tylenol- Codeine #3 300-30 mg Oral Tablet - take 2 tablets by ORAL route every 6 hours As needed; 20 tablet. - Medication Reconciliation Form, Thank You Letter, Antibiotic Education, Prescription Opioid Use form. - Follow up: Private Physician; When: DR Mcwilliams, [facility] surgeon, office #[phone]; Reason: office follow-up on Monday09-03-2018. - Problem is new. - Symptoms have improved. Signatures: Dispatcher [employer] Jennie Pierre RN RN iw Nieto, Roman, MD MD rn Page, Corey, PA PA Lauren Abrams RN RN rb1 Darren Hong RN RN jb4 Corrections: (The following items were deleted from the chart) 09/01 17:58 17:34 Facial Bones W/ Con \T\ [id number].[id number] ordered. EDMS EDMS 19:48 19:46 The patient has been recently seen by a physician: in [place] ED, with similar cp presenting complaints, was given a prescription for antibiotics, cp 20:17 20:16 09/01/2018 20:16 Discharged to Home. Impression: Periapical abscess without cp sinus. Condition is Stable. Forms are Medication Reconciliation Form, Thank You Letter, Antibiotic Education, Prescription Opioid Use. Follow up: Private Physician; When: DR Mcwilliams, [facility] surgeon, office #[phone]; Reason: office follow-up on Monday09-03-2018. Problem is new. Symptoms have improved. cp 21:06 20:17 09/01/2018 20:16 Discharged to Home. Impression: Periapical abscess without sinus jb4 - right lower first mandibular molar. Condition is Stable. Discharge Instructions: Dental Abscess. Prescriptions for Clindamycin HCl 300 mg Oral Capsule - take 1 capsule by ORAL route every 6 hours for 10 days; 40 capsule, Tylenol-Codeine #3 300-30 mg Oral Tablet - take 2 tablets by ORAL route every 6 hours As needed; 20 tablet. and Forms are Medication Reconciliation Form, Thank You Letter, Antibiotic Education, Prescription Opioid Use. Follow up: Private Physician; When: DR Mcwilliams, [facility] surgeon, office #[phone]; Reason: office follow-up on Monday09-03-2018. Problem is new. Symptoms have improved. cp
--- NOTE | 2018-09-01 20:16 | ER ---
Nurse's Notes [facility] Name: Marya Garcia Age: 48 yrs Sex: Female : 1970 Arrival Date: 09/01/2018 Time: 16:44 Bed 13 Private MD: Diagnosis: Periapical abscess without sinus-right lower first mandibular molar Presentation: 09/01 17:00 Presenting complaint: Patient states: toothache to right lower molar since Monday, with iw jaw swelling, was seen in [facility] around 2 or 3 am, was prescribed Augmentin abx and Tylenol with codeine, has had increase in pain and swelling since then, has taken 3 doses of abx. Transition of care: patient was not received from another setting of care. Onset of symptoms was September 01, 2018. Risk Assessment: Do you want to hurt yourself or someone else? Patient reports no desire to harm self or others. Initial Sepsis Screen: Does the patient meet any 2 criteria? No. Patient's initial sepsis screen is negative. Does the patient have a suspected source of infection? No. Patient's initial sepsis screen is negative. Care prior to arrival: Medication(s) given: Augmentin, Tylenol with codeine. 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 iw Historical: - Allergies: 17:09 No Known Allergies; iw - Home Meds: 17:09 amitriptyline 25 mg Oral tab 1 tab once daily [Active]; furosemide 20 mg Oral tab 1 tab iw once daily [Active]; Dexilant 30 mg oral CpDB 1 cap once daily [Active]; hydroxyzine HCl 25 mg Oral tab [Active]; nifedipine 90 mg Oral TbER 1 tab once daily [Active]; potassium chloride 20 mEq Oral TbER once daily [Active]; Duexis 800-26.6 mg oral tab 1 tab 3 times per day [Active]; ProAir HFA 90 mcg/actuation inhalation HFAA [Active]; tizanidine 4 mg oral cap [Active]; Flovent Inhl [Active]; pilocarpine Opht [Active]; - PMHx: 17:09 scleroderma; pulmonary htn; Glaucoma; Asthma; iw - PSHx: 17:09 Hysterectomy; Tonsillectomy; iw - Immunization history:: Adult Immunizations up to date. - Social history:: Smoking status: Patient/guardian denies using tobacco. - Ebola Screening: : Patient negative for fever greater than or equal to 101.5 degrees Fahrenheit, and additional compatible Ebola Virus Disease symptoms Patient denies exposure to infectious person Patient denies travel to an Ebola-affected area in the 21 days before illness onset No symptoms or risks identified at this time. Screenin:55 Abuse screen: Denies threats or abuse. Nutritional screening: No deficits noted. rb1 Tuberculosis screening: No symptoms or risk factors identified. Fall Risk None identified. Assessment: 16:55 General: Appears uncomfortable, Behavior is calm, cooperative, Denies fever. Pain: rb1 Complains of pain in right lower jaw Pain currently is 10 out of 10 on a pain scale. Pain began 1 day ago. Neuro: Level of Consciousness is awake, alert, obeys commands, Oriented to person, place, time, situation. Cardiovascular: Capillary refill < 3 seconds is brisk in bilateral fingers. Respiratory: Airway is patent Respiratory effort is even, unlabored, Respiratory pattern is regular, symmetrical. GI: Reports nausea. : No signs and/or symptoms were reported regarding the genitourinary system. EENT: swelling noted to the right lower jaw. Derm: Skin is pink, warm \T\ dry. 17:55 Reassessment: Patient appears in no apparent distress at this time. No changes from rb1 previously documented assessment. at bedside. 18:45 Reassessment: No changes from previously documented assessment. Patient and/or family rb1 updated on plan of care and expected duration. Pain level reassessed. Patient is alert, oriented x 3, equal unlabored respirations, skin warm/dry/pink. 19:15 Reassessment: Patient appears in no apparent distress at this time. Patient and/or jb4 family updated on plan of care and expected duration. Pain level reassessed. Patient is alert, oriented x 3, equal unlabored respirations, skin warm/dry/pink. 20:00 Reassessment: Patient appears in no apparent distress at this time. Patient and/or jb4 family updated on plan of care and expected duration. Pain level reassessed. Patient is alert, oriented x 3, equal unlabored respirations, skin warm/dry/pink. 21:00 Reassessment: Patient appears in no apparent distress at this time. Patient and/or jb4 family updated on plan of care and expected duration. Pain level reassessed. Patient is alert, oriented x 3, equal unlabored respirations, skin warm/dry/pink. Vital Signs: 17:09 BP 145 / 87; Pulse 92; Resp 16; Temp 98.5(TE); Pulse Ox 97% on R/A; Weight 65.77 kg; iw Height 5 ft. 5 in. (165.10 cm); Pain 7/10; 18:18 BP 113 / 72; Pulse 70; Resp 16; Temp 97.6(TE); Pulse Ox 98% on R/A; mh5 20:30 BP 111 / 78; Pulse 68; Resp 16; Pulse Ox 97% on R/A; jb4 17:09 Body Mass Index 24.13 (65.77 kg, 165.10 cm) iw ED Course: 16:44 Patient arrived in ED. as 16:55 Patient has correct armband on for positive identification. Bed in low position. Call rb1 light in reach. Side rails up X 1. Pulse ox on. NIBP on. 17:03 Triage completed. iw 17:10 Arm band placed on. iw 17:18 Tin Hunter PA is PHCP. cp 17:18 Chago Currie MD is Attending Physician. cp 17:21 Lauren Abrams, RN is Primary Nurse. rb1 17:51 Initial lab(s) drawn, by ct, sent to lab. Inserted saline lock: 20 gauge in left lt1 antecubital area, using aseptic technique. 18:41 Soft Tissue Neck W/Contr In Process Unspecified. EDMS 18:41 CT completed. Patient tolerated procedure well. Patient moved back from CT. mw3 18:[address] back [address]. mw3 19:00 Report given to MEÑO Christianson. rb1 19:56 Primary Nurse role handed off by Lauren Abrams, MEÑO jb4 19:56 Darren Hong, MEÑO is Primary Nurse. jb4 21:00 No provider procedures requiring assistance completed. IV discontinued, intact, jb4 bleeding controlled, No redness/swelling at site. Administered Medications: 17:50 Drug: NS 0.9% 1000 ml Route: IV; Rate: 1 bolus; Site: left antecubital; rb1 18:20 Follow up: IV Status: Completed infusion rb1 17:50 Drug: Clindamycin 900 mg Route: IVPB; Infused Over: 30 mins; Site: left antecubital; rb1 18:05 Follow up: Response: No adverse reaction rb1 18:19 Follow up: IV Status: Completed infusion rb1 17:50 Drug: TORadol - Ketorolac 15 mg Route: IVP; Site: left antecubital; rb1 18:05 Follow up: Response: No adverse reaction; Pain is decreased rb1 20:05 Drug: fentaNYL (PF) 25 mcg Route: IVP; Site: left antecubital; jb4 21:04 Drug: Potassium Effervescent Tablet 50 mEq Route: PO; jb4 21:04 Drug: Zofran 4 mg Route: IVP; Site: left antecubital; jb4 Outcome: 20:16 Discharge ordered by MD. cp 21:00 Discharged to home ambulatory, with significant other. jb4 21:00 Condition: stable 21:00 Discharge instructions given to patient, significant other, Instructed on discharge instructions, follow up and referral plans. medication usage, Demonstrated understanding of instructions, follow-up care, medications, Prescriptions given X 2. 21:06 Patient left the ED. jb4 Signatures: Dispatcher [employer] EDMS Cyndie Ring Irene, RN RN iw Tin Hunter PA PA cp Lauren Abrams, RN RN rb1 Darren Hong RN RN jb4 Mariaa Ring Tianna Malcolm mw3 Nargis Bonilla lt1 Corrections: (The following items were deleted from the chart) 17:37 17:00 Acuity: DAPHNE 4 iw iw 18:24 18:19 Radiology exam delayed due to lab results not completed at this time. mw3 (BUN/Creatinine) mw3
[2018-09-01] MEDS ORDERED: FENTANYL CITR 100 MCG/2 ML ONE (20:20)
[2018-09-01] MEDS ORDERED: POTASSIUM 25 MEQ EFFERV TAB ONE (21:05)
[2018-09-01] MEDS ORDERED: ONDANSETRON 4 MG/2 ML VIAL ONE (21:13)
== END 2018-09-01 21:06 | disposition home or self-care (01) ==
LOC: ER 16:42
DX: K04.7 Periapical abscess without sinus (principal); J45.909 Unspecified asthma, uncomplicated
CPT/HCPCS: 36415; 70491; 80048; 85025; 85610; 85730; 96365; 96375; 99284; J2405; J3010; J7030

== ENCOUNTER 2019-02-22 07:35 | Emergency (ER) | payer BC ==
--- OUTSIDE RECORDS SUMMARY | 2019-02-22 07:38 | XMS REPORT | Summary of Care ---
:1970 Author Name DAYSI Almendarez, BLAYNE Address [facility] Unavailable , Care Team Providers Name Role Phone DAYSI Almendarez, BLAYNE Unavailable Unavailable DAYSI Almendarez, THY Unavailable Unavailable SCOUT Almendarez, SIMBO Unavailable Unavailable BREANNE Almendarez, EDUARDA Unavailable Unavailable ADONIS Almendarez, IRIZARRY Unavailable Unavailable SADIA Almendarez, ERNESTO Unavailable Unavailable SARAVANAN GarciaPUmesh, DORA Unavailable Unavailable FGIUEROA WILKERSON, ROBBNI Unavailable Unavailable SCOUT WILKERSON, JC Unavailable Unavailable DARREN WILKERSON, CHUCHO Unavailable Unavailable SADIA WILKERSON UT, ERNESTO Unavailable Unavailable JEMIMA GUY UT, JOSEPH Zamudio Unavailable Unavailable RENNY WILKERSON, RJ Unavailable Unavailable DYASI WILKERSON, BLAYNE DIAZ Unavailable Unavailable DAYSI WILKERSON UT, THY Unavailable Unavailable Unavailable Unavailable Unavailable Functional Status Name Dates Details Functional status health issues are not documented Status: Name Dates Details Cognitive status health issues are not documented Status: Problems Name Dates Details Normal routine physical examination (V70.0, Z00.00) Status: Active Raynauds phenomenon (443.0, I73.00) Status: Active Central hearing loss (389.14, H90.5) Status: Active Imbalance (781.2, R26.89) Status: Active Vitamin D deficiency (268.9, E55.9) Status: Active Essential (primary) hypertension (401.9, I10) Status: Active Dizzy spells (780.4, R42) Status: Active Vertigo (780.4, R42) Status: Active Insomnia (780.52, G47.00) Status: Active Skin rash (782.1, R21) Status: Active Tinnitus of right ear (388.30, H93.11) Status: Active Hypothyroid (244.9, E03.9) Status: Active Glaucoma (365.9, H40.9) Status: Active Chest pain (786.50, R07.9) Status: Active Ptosis of right eyelid (374.30, H02.401) Status: Active Dysarthria and anarthria (784.51, R47.1) Status: Active Peptic esophagitis (530.10, K20.9) Status: Active Asthma (493.90, J45.909) Status: Active Secondary pulmonary hypertension (416.8) Status: Active Swelling of lower extremity (729.81, M79.89) Status: Active Myalgia (729.1, M79.10) Status: Active Acute bilateral knee pain (338.19, M25.561) Status: Active Systemic sclerosis (710.1, M34.9) Status: Active Shortness of breath (786.05, R06.02) Status: Active Other complicated headache syndrome (339.44, G44.59) Status: Active PAH (pulmonary artery hypertension) (416.8, I27.21) Status: Active Gastroesophageal reflux disease without esophagitis (530.81, K21.9) Status: Active Medications Name Dates Details Synthroid 25 MCG Oral Tablet TAKE TABLET DAILY Refills: 0 M.A. Start : 20-Jun-2005 Active Caltrate 600+D TABS TAKE 1 TABLET DAILY Refills: 0 M.A.Active Vitamin B12 TABS TAKE 1 TABLET DAILY DIRECTED. Refills: 0 M.A.Active NIFEdipine ER 90 MG Oral Tablet Extended Release 24 Hour TAKE 1 TABLET DAILY. Quantity: 90 Refills: 3 JC BUTTERFIELD M.D. Start : 19-Dec-2011 Active Esomeprazole Magnesium 20 MG Oral Capsule Delayed Release TAKE 1 CAPSULE ONCE DAILY. Quantity: 90 Refills: 1 BLAYNE TAVAREZ M.D. Start : 09-Dec-2014 Active ProAir RespiClick 108 (90 Base) MCG/ACT Inhalation Aerosol Powder Breath Activated INHALE 1-2 PUFFS EVERY 4 HOURS NEEDED Quantity: 1 Refills: 5 EDUARDA RAYMUNDO M.D. Start : 07-Apr-2015 Active Duexis 800-26.6 MG Oral Tablet TAKE 1 TABLET EVERY 8 HOURS PRN Pain Quantity: 90 Refills: 5 BLAYNE TAVAREZ M.D. Start : 22-Jun-2015 Active Zioptan 0.0015 % Ophthalmic Solution Refills: 0 M.A.Active hydroCHLOROthiazide 25 MG Oral Tablet TAKE 1 TABLET BY MOUTH EVERY DAY Quantity: 90 Refills: 3 NUZHAT MCCULLOUGH M.D.A Start : 25-Jan-2016 Active tiZANidine HCl - 4 MG Oral Tablet TAKE 1 TABLET BY MOUTH AT BEDTIME Quantity: 90 Refills: 1 DAYSI Almendarez BLAYNE Start : 20-Jun-2016 Active hydrOXYzine HCl - 25 MG Oral Tablet TAKE 1 TABLET AT BEDTIME NEEDED. Quantity: 30 Refills: 4 DAYSI Almendarez, BLAYNE Start : 20-Jun-2016 Active Pilocarpine HCl - 5 MG Oral Tablet TAKE 1 TABLET 3 TIMES DAILY. Quantity: 270 Refills: 1 SERINA TAVAREZ M.D.H Start : 19-Dec-2016 Active Furosemide 20 MG Oral Tablet TAKE 1 TABLET BY MOUTH EVERY DAY DIRECTED Quantity: 30 Refills: 6 ERNESTO MCCULLOUGH M.D. Start : 24-Jan-2017 Active Potassium Chloride 20 MEQ Oral Packet TAKE 1 PACKET DAILY. Quantity: 90 Refills: 3 ADONIS Almendarez IRIZARRY Start : 24-Jan-2017 Active Amitriptyline HCl - 10 MG Oral Tablet TAKE 1 TABLET AT BEDTIME. Quantity: 30 Refills: 0 DAYSI Almendarez [facility] Start : 17-May-2017 Active Dexilant 30 MG Oral Capsule Delayed Release TAKE 1 CAPSULE DAILY EVERY MORNING BEFORE BREAKFAST. Quantity: 90 Refills: 1 SERINA TAVAREZ M.D.H Start : 16-Jun-2017 Active Flovent Diskus 250 MCG/BLIST Inhalation Aerosol Powder Breath Activated USE ONE INHALATION TWICE A DAY Quantity: 3 Refills: 3 ERNESTO MCCULLOUGH M.D. Start : 27-Feb-2018 Active Amitriptyline HCl - 10 MG Oral Tablet TAKE 1 AND 1/2 TABLETS BY MOUTH AT BEDTIME Quantity: 135 Refills: 1 DAYSI Almendarez, [facility] Start : 02-Oct-2018 Active Esomeprazole Magnesium 20 MG Oral Capsule Delayed Release TAKE 1 CAPSULE ONCE DAILY. Quantity: 30 Refills: 5 DORA COE N.P. Start : 30-Oct-2018 Active Dexilant 60 MG Oral Capsule Delayed Release TAKE 1 CAPSULE DAILY EVERY MORNING BEFORE BREAKFAST. 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) Status: Resolved Procedures Procedure Dates Details Complete PFTs w/DLCO and Lung Volumes Date: 30-Oct-2018 [N] 2D Echo complete, with Doppler 23668 Date: 30-Oct-2018 History of Tonsillectomy Completed History of Hysterectomy Completed Immunization Name Dates Details Immunizations not documented Family History Name Dates Details Family history of hyperlipidemia (V18.19, Z83.438) Status: Active Name Dates Details Family history of hyperlipidemia (V18.19, Z83.438) Status: Active Name Dates Details Family history of hyperlipidemia (V18.19, Z83.438) Status: Active Social History Name Dates Details - Status: Name Dates Details Never smoker Vital Signs Date Test Result Details 6-Upg-[id number]:36 BP Systolic 130 mm[Hg] Status: Comments: Location: LUE; Position: Sitting BP Diastolic 85 mm[Hg] Status: Comments: Location: LUE; Position: Sitting Height 65 in Status: Weight 149.25 lb Status: Body Mass Index Calculated 24.84 kg/m2 Status: Body Surface Area Calculated 1.75 m2 Status: Temperature 98.1 f Status: Comments: Method: Oral Heart Rate 71 /min Status: Results Date Description Value Details 6-Mbo-244907:20 [[facility]] CBC (INCLUDES DIFF/PLT) WBC 8.9 {K/CMM} Range: 3.7-10.4 RBC 4.36 {M/CMM} Range: 4.20-5.40 Hgb 13.6 g/dl Range: 12.0-16.0 Hct 41.4 % Range: 36.0-48.0 MCV 95.0 fL Range: 80.0-98.0 MCH 31.3 pg (Above high threshold) Range: 27.0-31.0 MCHC 33.0 g/dl Range: 32.0-36.0 RDW 13.9 % Range: 11.5-14.5 Platelet 293 {K/CMM} Range: 133-450 Mean Platelet Volume 8.3 fL Range: 7.4-10.4 :20 [[facility]] Differential Segmented Neutrophils 70.6 % Range: 45.0-75.0 Monocytes 6.2 % Range: 2.0-12.0 Lymphocytes 21.5 % Range: 20.0-40.0 Eosinophils 0.8 % Range: 0.0-4.0 Basophils 0.9 % Range: 0.0-1.0 Segs-Bands # 6.3 {K/CMM} Range: 1.5-8.1 Lymphocytes # 1.9 {K/CMM} Range: 1.0-5.5 Monocytes # 0.6 {K/CMM} Range: 0.0-0.8 Eosinophils # 0.1 {K/CMM} Range: 0.0-0.5 Basophils # 0.1 {K/CMM} Range: 0.0-0.2 [id number]-Fcu-[id number]:20 [[facility]] URINALYSIS, COMPLETE UA Turbidity Clear Range: Clear UA Spec Grav 1.005 Range: <=1.030 UA pH 6.0 Range: 5.0-8.0 UA Protein Negative mg/dl Range: Negative UA Glucose Negative mg/dl Range: Negative UA Ketones Negative mg/dl Range: Negative UA Bili Negative Range: Negative UA Blood Negative Range: Negative UA Nitrite Negative Range: Negative UA Leuk Est Negative Range: Negative UA RBC <1 {/HPF} Range: 0-2 UA Sq Epi Occasional {/LPF} Range: Few Urine Hyaline Casts 1 {/LPF} Range: 0-2 UA Color Ltyellow UROBILINOGEN <=1.0 mg/dl Range: 0.1-1.0 5-Bvr-098724:20 [QL] CMP W/EGFR Sodium Level 139 {mEq/l} Range: 135-145 Potassium Level 3.7 {mEq/l} Range: 3.5-5.1 Chloride Level 103 {mEq/l} Range: 95-109 Carbon Dioxide 29 {mEq/l} Range: 24-32 AGAP 10.7 {mEq/l} Range: 10.0-20.0 Glucose Lvl 83 mg/dl Range: 70-99 Comments: Adult reference range values reflect the clinical guidelinesof the [place] [employer]. Creatinine Lvl 0.70 mg/dl Range: 0.50-1.40 Blood Urea Nitrogen 18 mg/dl Range: 7-22 BUN/Creatinine Ratio 26 (Above high Range: 6-25 threshold) Total Protein 7.6 g/dl Range: 6.4-8.4 Albumin Lvl 4.4 g/dl Range: 3.5-5.0 Globulin 3.2 g/dl Range: 2.7-4.2 A/G Ratio 1.4 Range: 0.7-1.6 Calcium Level Total 9.1 mg/dl Range: 8.5-10.5 ALT 25 u/l Range: 0-65 AST 24 u/l Range: 0-37 Alk Phos 74 u/l Range: 39-136 Comments: The pediatric reference ranges for this test represent a CLSI- basedtransference of the CALIPER database of pediatric reference intervals to the[facility] [employer] Auto Detailing analyzer (Clinical Biochemistry 46 (2012): 11 97-1219). The [facility] [place] [employer] (GLCF) has not internally validated these referenceranges and therefore they should be used only in the context of a thoroughclinical assessment. Bili Total 0.3 mg/dl Range: 0.2-1.3 eGFR 103 {ML/MIN/1.7} Comments: The eGFR is calculated using the CKD-EPI formula. In most young, healthyindividuals the eGFR will be >90 mL/min/1.73m2. The eGFR declines with age. AneGFR of 60-89 may be normal in some populations, particularly the elderly, forwhom the CKD-EPI formula has not been extensively validated. Use of the eGFR isnot recommended in the following populations:Individuals with unstable creatinine concentratio ns, including patients and those with serious co-morbid conditions.Patients with extremes in muscle mass or diet.The data above are obtained from the National Kidney Disease Education Program(NK DEP) which additionally recommends that when the eGFR is used in patientswith extremes of body mass index for purposes of drug dosing, the eGFR shouldbe multiplied by the estimated BMI. 5-Xlk-961294:20 [QL] CREATINE KINASE, TOTAL Creatine Kinase 133 u/l Range: 12-191 8-Cnj-200722:20 [QL] C-REACTIVE PROTEIN CRP 5.6 mg/L (Above high threshold) Range: <=2.9 Plan of Care Name Dates Details Planned Observations Planned Goals not documented Planned Encounters Appointment; CATARINO BURRIS On: 20-Dec-2018 11:30 Appointment; ERNESTO MCCULLOUGH M.D. On: 08-Jan-2019 13:40 Appointment; HEMANTH TAVAREZ M.D. On: 01-Apr-2019 9:15 Appointment; BLAYNE TAVAREZ M.D. On: 31-May-2019 10:00 Interventions Provided Discussion/SummaryYour blood count, kidney and liver function look good. One of your inflammatory markers is elevated but stable. Overall, your labs are stable. Instructions Name Dates Details Instructions not documented Encounters Appointment; BLAYNE TAVAREZ M.D. On: 19-Dec-2016 9:00 Encounter Diagnosis: Problem not documented Appointment; JC BUTTERFIELD M.D. On: 20-Dec-2016 8:20 Encounter Diagnosis: Problem not documented Appointment; ERNESTO MCCULLOUGH M.D. On: 24-Jan-2017 14:00 Encounter Diagnosis: Problem not documented Appointment; SHAKA SALAZAR On: 31-Jan-2017 8:00 Encounter Diagnosis: Problem not documented Appointment; ERNESTO MCCULLOUGH M.D. On: 21-Feb-2017 15:40 Encounter Diagnosis: Problem not documented Appointment; JC BUTTERFIELD M.D. On: 28-Feb-2017 8:40 Encounter Diagnosis: Problem not documented Appointment; HEMANTH TAVAREZ M.D. On: 17-May-2017 9:45 Encounter Diagnosis: Problem not documented Appointment; LINUS CAMPBELL On: 31-May-2017 14:15 Encounter Diagnosis: Problem not documented Appointment; HEMANTH TAVAREZ M.D. On: 06-Jun-2017 8:00 Encounter Diagnosis: Problem not documented Appointment; LINUS CAMPBELL On: 07-Jun-2017 8:00 Encounter Diagnosis: Problem not documented Appointment; BLAYNE TAVAREZ M.D. On: 16-Jun-2017 10:30 Encounter Diagnosis: Problem not documented Appointment; ERNESTO MCCULLOUGH M.D. On: 18-Jul-2017 15:00 Encounter Diagnosis: Problem not documented Appointment; NOVA BURRIS On: 18-Jul-2017 15:00 Encounter Diagnosis: Problem not documented Appointment; JC BUTTERFIELD M.D. On: 22-Aug-2017 8:40 Encounter Diagnosis: Problem not documented Appointment; ERNESTO MCCULLOUGH M.D. On: 22-Aug-2017 13:20 Encounter Diagnosis: Problem not documented Appointment; BLAYNE TAVAREZ M.D. On: 18-Dec-2017 9:30 Encounter Diagnosis: Problem not documented Appointment; LINUS CAMPBELL On: 27-Dec-2017 15:30 Encounter Diagnosis: Problem not documented Appointment; ERNESTO MCCULLOUGH M.D. On: 27-Feb-2018 14:00 Encounter Diagnosis: Problem not documented Appointment; JC BUTTERFIELD M.D. On: 09-Mar-2018 14:20 Encounter Diagnosis: Problem not documented Appointment; JOSEPH ONOFRE P.A. On: 17-May-2018 13:30 Encounter Diagnosis: Problem not documented Appointment; BLAYNE TAVAREZ M.D. On: 05-Jun-2018 9:30 Encounter Diagnosis: Problem not documented Appointment; HEMANTH TAVAREZ M.D. On: 20-Aug-2018 8:00 Encounter Diagnosis: Problem not documented Appointment; HEMANTH TAVAREZ M.D. On: 02-Oct-2018 14:00 Encounter Diagnosis: Problem not documented Appointment; ERNESTO MCCULLOUGH M.D. On: 30-Oct-2018 13:20 Encounter Diagnosis: Problem not documented Appointment; BLAYNE TAVAREZ M.D. On: 27-Nov-2018 10:30 Encounter Diagnosis: Problem not documented Appointment; BLAYNE TAVAREZ M.D. On: 30-Nov-2018 10:00 Encounter Diagnosis: Problem not documented Appointment; DAYAN BURRIS On: 30-Nov-2018 13:00 Encounter Diagnosis: Problem not documented
--- OUTSIDE RECORDS SUMMARY | 2019-02-22 07:38 | XMS REPORT ---
:1970 [facility] Address [address] [place] [address] Dr. Carmona [address] [place] [id number] Care Team Providers Name Role Phone Unavailable Unavailable Unavailable Problems This patient has no known problems. Allergies, Adverse Reactions, Alerts This patient has no known allergies or adverse reactions. Medications This patient has no known medications. Encounters Start End Encounter Admission Attending Care Care Encounter Date/Time Date/Time Type Type Clinicians Facility Department ID 2018-07-11 2018-07-11 Outpatient [facility] [id number] 09:30:00 09:30:00
[2019-02-22 08:17] LABS: Absolute Lymphocytes (CBC) 1.8 K/uL (0.7-4.9); Basophils % 2.3 % (0-1.3); Hematocrit 40.2 % (36.0-45.0); Lymphocytes % 26.4 % (15.3-44.8); MPV 8.3 fL (7.6-11.3); RBC Red Blood Cell Count 4.44 M/uL (3.86-4.86)
[2019-02-22] MEDS ORDERED: KETOROLAC 30 MG/ML INJ ONE (08:24)
[2019-02-22] MEDS ORDERED: METHYLPREDNISOLONE 125 MG INJ ONE (08:24)
[2019-02-22 08:33] LABS: ALT/SGPT 37 U/L (12-78); AST/SGOT 21 U/L (15-37); Albumin 3.9 g/dL (3.4-5.0); Alkaline Phosphatase 70 U/L (45-117); BUN Blood Urea Nitrogen 14 mg/dL (7-18); Bicarbonate 28 mmol/L (21-32); Bilirubin Direct 0.1 mg/dL (0-0.2); Bilirubin Total 0.3 mg/dL (0.2-1.0); Glucose Level 92 mg/dL (74-106); Magnesium 2.1 mg/dL (1.8-2.4); NT PRO-BNP 34 pg/mL (<125); Potassium 3.6 mmol/L (3.5-5.1); Protein, Total 7.4 g/dL (6.4-8.2); Sodium Level 138 mmol/L (136-145); Troponin (Emerg Dept Use Only) < 0.02 ng/mL (0.0-0.045)
--- NOTE | 2019-02-22 09:43 | RAD REPORT ---
EXAM DESCRIPTION: RAD - Chest Single View - 02/22/2019 8:11 am CLINICAL HISTORY: Right-sided chest pain COMPARISON: None. TECHNIQUE: AP portable chest image was obtained 0806 hours . FINDINGS: Lungs are clear. Heart and vasculature are normal. No measurable pleural effusion and no p neumothorax. No acute bony abnormality seen. No acute aortic findings suspected. IMPRESSION: No acute cardiopulmonary process.
--- NOTE | 2019-02-22 10:36 | ER ---
Nurse's Notes [facility] Name: Marya Garcia Age: 48 yrs Sex: Female : 1970 Arrival Date: 02/22/2019 Time: 07:36 Bed 3 Private MD: Diagnosis: Chest pain on breathing;Other chest pain;Pleurisy Presentation: 02/22 07:45 Presenting complaint: Patient states: right sided chest pain radiating to right arm iw since this a.m. Transition of care: patient was not received from another setting of care. Onset of symptoms was February 22, 2019. Risk Assessment: Do you want to hurt yourself or someone else? Patient reports no desire to harm self or others. Initial Sepsis Screen: Does the patient meet any 2 criteria? No. Patient's initial sepsis screen is negative. Does the patient have a suspected source of infection? No. Patient's initial sepsis screen is negative. Care prior to arrival: None. 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 - Hysterectomy iw Historical: - Allergies: 07:47 No Known Allergies; iw - Home Meds: 07:47 amitriptyline 25 mg Oral tab 1 tab once daily [Active]; Dexilant 30 mg Oral CpDB 1 cap iw once daily [Active]; Duexis 800-26.6 mg Oral tab 1 tab 3 times per day [Active]; Flovent Inhl [Active]; furosemide 20 mg Oral tab 1 tab once daily [Active]; hydroxyzine HCl 25 mg Oral tab [Active]; nifedipine 90 mg Oral TbER 1 tab once daily [Active]; Pilocarpine Opht [Active]; potassium chloride 20 mEq Oral TbER once daily [Active]; ProAir HFA 90 mcg/actuation inhalation HFAA [Active]; tizanidine 4 mg Oral cap [Active]; - PMHx: 07:47 Asthma; Glaucoma; pulmonary HTN; Scleroderma; iw - PSHx: 07:47 Hysterectomy; Tonsillectomy; iw - Immunization history:: Adult Immunizations unknown. - Social history:: Smoking status: . - Ebola Screening: : Patient negative for fever greater than or equal to 101.5 degrees Fahrenheit, and additional compatible Ebola Virus Disease symptoms Patient denies exposure to infectious person Patient denies travel to an Ebola-affected area in the 21 days before illness onset No symptoms or risks identified at this time. Screenin:10 Abuse screen: Denies threats or abuse. Denies injuries from another. Nutritional ph screening: No deficits noted. Tuberculosis screening: No symptoms or risk factors identified. Fall Risk None identified. Assessment: 08:08 General: Appears in no apparent distress. comfortable, slender, well groomed, Behavior ph is calm, cooperative, appropriate for age, Denies fever, feeling ill. Pain: Complains of pain in anterior aspect of right upper chest Pain radiates to right arm Pain began suddenly. Neuro: Level of Consciousness is awake, alert, obeys commands, Oriented to person, place, time, situation, Denies weakness blurred vision dizziness. Cardiovascular: Reports chest pain, Denies lightheadedness, nausea, shortness of breath, Capillary refill < 3 seconds in bilateral fingers Patient's skin is warm and dry. Rhythm is regular Chest pain is located in right anterior chest wall radiates to right arm(s). Respiratory: Airway is patent Respiratory effort is even, unlabored, Respiratory pattern is regular, symmetrical. GI: No signs and/or symptoms were reported involving the gastrointestinal system. Derm: Skin is intact, is healthy with good turgor, Skin is pink, warm \T\ dry. Musculoskeletal: Circulation, motion, and sensation intact. Range of motion: intact in all extremities. 09:30 Reassessment: Patient appears in no apparent distress at this time. Patient and/or ph family updated on plan of care and expected duration. Pain level reassessed. Patient is alert, oriented x 3, equal unlabored respirations, skin warm/dry/pink. Pt resting comfortably, reports that pain has decreased to 1/10, awaiting Xray results, SO at bedside. 11:01 Reassessment: Patient appears in no apparent distress at this time. Patient and/or ph family updated on plan of care and expected duration. Pain level reassessed. Patient is alert, oriented x 3, equal unlabored respirations, skin warm/dry/pink. Pt d/c home w/ SO Patient denies pain at this time. Patient states feeling better. Vital Signs: 07:47 BP 118 / 80; Pulse 82; Resp 16; Temp 98.2; Pulse Ox 100% on R/A; Weight 65.77 kg; iw Height 5 ft. 1 in. (154.94 cm); Pain 6/10; 09:31 BP 102 / 77; Pulse 60; Resp 18; Pulse Ox 99% on R/A; Pain 1/10; ph 10:27 BP 99 / 79 RA Supine; Pulse 70; ss 10:27 BP 99 / 80 LA Supine; Pulse 64; ss 11:02 BP 99 / 76; Pulse 67; Resp 18; Temp 97.6; Pulse Ox 99% on R/A; Pain 0/10; ph 07:47 Body Mass Index 27.40 (65.77 kg, 154.94 cm) iw ED Course: 07:36 Patient arrived in ED. rg4 07:37 Zack Yang MD is Attending Physician. kdr 07:46 Triage completed. iw 07:47 Arm band placed on. iw 07:53 Mariza De La O, RN is Primary Nurse. ph 08:00 Inserted saline lock: 22 gauge in left antecubital area, using aseptic technique. Blood ph collected. 08:05 No provider procedures requiring assistance completed. Initial lab(s) drawn, by me, ph sent to lab. X-ray(s) taken. Patient maintains SpO2 saturation greater than 95% on room air. 08:10 Patient has correct armband on for positive identification. Placed in gown. Bed in low ph position. Call light in reach. Side rails up X 1. manager monitoring on. Pulse ox on. NIBP on. Door closed. Noise minimized. Warm blanket given. Head of bed elevated. 08:41 XRAY Chest (1 view) In Process Unspecified. EDMS 11:02 IV discontinued, intact, bleeding controlled, No redness/swelling at site. Pressure ph dressing applied. Administered Medications: 08:25 Drug: SOLU-Medrol 125 mg Route: IVP; Site: left antecubital; ph 09:32 Follow up: Response: No adverse reaction ph 08:27 Drug: TORadol - Ketorolac 15 mg Route: IVP; Site: left antecubital; ph 09:32 Follow up: Response: No adverse reaction; Pain is decreased ph Outcome: 10:35 Discharge ordered by . kdr 11:03 Discharged to home ambulatory, with significant other. ph 11:03 Condition: good 11:03 Discharge instructions given to patient, Instructed on discharge instructions, follow up and referral plans. medication usage, Demonstrated understanding of instructions, follow-up care, medications, Prescriptions given X 3. 11:04 Patient left the ED. ph Signatures: Dispatcher [employer] EDMS Zack Yang MD MD [facility] Jennie Cook RN RN iw Smirch, Shelby, RN RN ss Hall, Patricia, RN RN ph Garcia, Rubi rg4
--- NOTE | 2019-02-22 10:37 | EDPHYS ---
Physician Documentation [facility] Name: Marya Garcia Age: 48 yrs Sex: Female : 1970 Arrival Date: 02/22/2019 Time: 07:36 Bed 3 Private MD: ED Physician Zack Yang HPI: 02/22 07:52 This 48 yrs old Female presents to ER via Ambulatory with complaints of Chest kdr Pain. 07:52 The patient or guardian reports chest pain that is located primarily in the anterior kdr chest wall, right. 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 The pain radiates to the right arm, the right shoulder. Associated signs and symptoms: The patient has no apparent associated signs or symptoms, Pertinent negatives: abdominal pain, cough, diaphoresis, dizziness, headache, lower extremity pain, lower extremity swelling, lightheadedness, nausea, near syncope, palpitations, recent travel, shortness of breath, syncope, vomiting. The chest pain is described as aching, sharp. Modifying factors: The symptoms are alleviated by nothing. the symptoms are aggravated by breathing, cough, deep breath, movement. Severity of pain: At its worst the pain was. The patient has not experienced similar symptoms in the past. 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 - Hysterectomy iw Historical: - Allergies: 07:47 No Known Allergies; iw - Home Meds: 07:47 amitriptyline 25 mg Oral tab 1 tab once daily [Active]; Dexilant 30 mg Oral CpDB 1 cap iw once daily [Active]; Duexis 800-26.6 mg Oral tab 1 tab 3 times per day [Active]; Flovent Inhl [Active]; furosemide 20 mg Oral tab 1 tab once daily [Active]; hydroxyzine HCl 25 mg Oral tab [Active]; nifedipine 90 mg Oral TbER 1 tab once daily [Active]; Pilocarpine Opht [Active]; potassium chloride 20 mEq Oral TbER once daily [Active]; ProAir HFA 90 mcg/actuation inhalation HFAA [Active]; tizanidine 4 mg Oral cap [Active]; - PMHx: 07:47 Asthma; Glaucoma; pulmonary HTN; Scleroderma; iw - PSHx: 07:47 Hysterectomy; Tonsillectomy; iw - Immunization history:: Adult Immunizations unknown. - Social history:: Smoking status: . - Ebola Screening: : Patient negative for fever greater than or equal to 101.5 degrees Fahrenheit, and additional compatible Ebola Virus Disease symptoms Patient denies exposure to infectious person Patient denies travel to an Ebola-affected area in the 21 days before illness onset No symptoms or risks identified at this time. ROS: 07:52 Constitutional: Negative for fever, chills, and weight loss, Eyes: Negative for injury, kdr pain, redness, and discharge, ENT: Negative for injury, pain, and discharge, Neck: Negative for injury, pain, and swelling, Respiratory: Negative for shortness of breath, cough, wheezing, and pleuritic chest pain, Abdomen/GI: Negative for abdominal pain, nausea, vomiting, diarrhea, and constipation, Back: Negative for injury and pain, : Negative for injury, bleeding, discharge, and swelling, MS/Extremity: Negative for injury and deformity, Skin: Negative for injury, rash, and discoloration, Neuro: Negative for headache, weakness, numbness, tingling, and seizure activity. Psych: Negative for depression, anxiety, suicide ideation, homicidal ideation, and hallucinations, Allergy/Immunology: Negative for hives, rash, and allergies, Endocrine: Negative for neck swelling, polydipsia, polyuria, polyphagia, and marked weight changes, Hematologic/Lymphatic: Negative for swollen nodes, abnormal bleeding, and unusual bruising. 07:52 Cardiovascular: Positive for chest pain, with cough, with movement, of the anterior aspect of right upper chest. Exam: 07:52 Constitutional: This is a well developed, well nourished patient who is awake, alert, kdr and in no acute distress. Head/Face: Normocephalic, atraumatic. Eyes: Pupils equal round and reactive to light, extra-ocular motions intact. Lids and lashes normal. Conjunctiva and sclera are non-icteric and not injected. Cornea within normal limits. Periorbital areas with no swelling, redness, or edema. Neck: Trachea midline, no thyromegaly or masses palpated, and no cervical lymphadenopathy. Supple, full range of motion without nuchal rigidity, or vertebral point tenderness. No Meningismus. Chest/axilla: Normal chest wall appearance and motion. Nontender with no deformity. No lesions are appreciated. Cardiovascular: Regular rate and rhythm with a normal S1 and S2. No gallops, murmurs, or rubs. Normal PMI, no JVD. No pulse deficits. Respiratory: Lungs have equal breath sounds bilaterally, clear to auscultation and percussion. No rales, rhonchi or wheezes noted. No increased work of breathing, no retractions or nasal flaring. Abdomen/GI: Soft, non-tender, with normal bowel sounds. No distension or tympany. No guarding or rebound. No evidence of tenderness throughout. Back: No spinal tenderness. No costovertebral tenderness. Full range of motion. Skin: Warm, dry with normal turgor. Normal color with no rashes, no lesions, and no evidence of cellulitis. MS/ Extremity: Pulses equal, no cyanosis. Neurovascular intact. Full, normal range of motion. Neuro: Awake and alert, GCS 15, oriented to person, place, time, and situation. Cranial nerves II-XII grossly intact. Motor strength 5/5 in all extremities. Sensory grossly intact. Cerebellar exam normal. Normal gait. Psych: Awake, alert, with orientation to person, place and time. Behavior, mood, and affect are within normal limits. 10:14 ECG was reviewed by the Attending Physician. kdr Vital Signs: 07:47 BP 118 / 80; Pulse 82; Resp 16; Temp 98.2; Pulse Ox 100% on R/A; Weight 65.77 kg; iw Height 5 ft. 1 in. (154.94 cm); Pain 6/10; 09:31 BP 102 / 77; Pulse 60; Resp 18; Pulse Ox 99% on R/A; Pain 1/10; ph 10:27 BP 99 / 79 RA Supine; Pulse 70; ss 10:27 BP 99 / 80 LA Supine; Pulse 64; ss 11:02 BP 99 / 76; Pulse 67; Resp 18; Temp 97.6; Pulse Ox 99% on R/A; Pain 0/10; ph 07:47 Body Mass Index 27.40 (65.77 kg, 154.94 cm) iw MDM: 10:14 HEART Score: History: Slightly Suspicious (0), ECG: Normal (0), Age: < or = 45 years kdr (0), Risk Factors: No Risk Factors Known (0), Troponin: < or = 1 x Normal Limit (0), Total Score = 0. Data reviewed: vital signs, nurses notes, EMS record. 10:30 ED course: Bilateral upper extremity BP equal. kdr 10:35 Patient medically screened. kdr 02/22 07:39 Order name: Basic Metabolic Panel kdr 02/22 07:39 Order name: CBC with Diff; Complete Time: 09:28 kdr 02/22 07:39 Order name: LFT's kdr 02/22 07:39 Order name: Magnesium kdr 02/22 07:39 Order name: NT PRO-BNP kdr 02/22 07:39 Order name: PT-INR; Complete Time: 10:16 kdr 02/22 07:39 Order name: Troponin (emerg Dept Use Only) kdr 02/22 07:39 Order name: XRAY Chest (1 view); Complete Time: 10:16 kdr 02/22 07:39 Order name: EKG; Complete Time: 07:42 kdr 02/22 07:39 Order name: Cardiac monitoring; Complete Time: 08:06 kdr 02/22 07:39 Order name: EKG - Nurse/Tech; Complete Time: 08:06 kdr 02/22 07:39 Order name: IV Saline Lock; Complete Time: 08:06 kdr 02/22 07:39 Order name: Labs collected and sent; Complete Time: 08:06 kdr 02/22 07:39 Order name: O2 Per Protocol; Complete Time: 08:06 kdr 02/22 07:39 Order name: O2 Sat Monitoring; Complete Time: 08:06 kdr EC:14 Rate is 75 beats/min. Rhythm is regular, Normal Sinus Rhythm with No ectopy. QRS [place] kdr is Normal. TX interval is normal. QRS interval is normal. QT interval is normal. No Q waves. T waves are Normal. No ST changes noted. Clinical impression: Normal ECG. Administered Medications: 08:25 Drug: SOLU-Medrol 125 mg Route: IVP; Site: left antecubital; ph 09:32 Follow up: Response: No adverse reaction ph 08:27 Drug: TORadol - Ketorolac 15 mg Route: IVP; Site: left antecubital; ph 09:32 Follow up: Response: No adverse reaction; Pain is decreased ph Disposition: 02/22/19 10:35 Discharged to Home. Impression: Chest pain on breathing, Other chest pain, Pleurisy. - Condition is Stable. - Discharge Instructions: Chest Wall Pain, [id number], Nonspecific Chest Pain, [id number], Pleurisy, [id number], Pleurodynia. - Prescriptions for ketorolac 10 mg Oral tablet - take 1 tablet by ORAL route every 4-6 hours not to exceed 40 mg in 24hrs; 12 tablet. Tramadol 50 mg Oral Tablet - take 1 tablet by ORAL route every 8 hours as needed; 12 tablet. Medrol (Dion) 4 mg Oral Tablets, Dose Pack - take 1 tablet by ORAL route as directed - follow package instructions; 1 packet. - Medication Reconciliation Form, Thank You Letter, Prescription Opioid Use, Family Work Release form. - Follow up: Private Physician; When: 2 - 3 days; Reason: If symptoms return, Further diagnostic work-up, Recheck today's complaints, Continuance of care, Re-evaluation by your physician. - Problem is new. - Symptoms have improved. Signatures: Dispatcher [employer] EDMS Zack Yang MD MD kdr Jennie Cook RN RN iw Mariza De La O RN RN ph Corrections: (The following items were deleted from the chart) 11:04 10:35 02/22/2019 10:35 Discharged to Home. Impression: Chest pain on breathing; Other ph chest pain; Pleurisy. Condition is Stable. Forms are Medication Reconciliation Form, Thank You Letter, Antibiotic Education, Prescription Opioid Use. Follow up: Private Physician; When: 2 - 3 days; Reason: If symptoms return, Further diagnostic work-up, Recheck today's complaints, Continuance of care, Re-evaluation by your physician. Problem is new. Symptoms have improved. kdr
[2019-02-22 11:21] VITALS: O2SAT 99
[2019-02-22 11:24] VITALS: BP 99/76; TEMP 97.6
--- NOTE | 2019-02-22 13:48 | EKG ---
Test Date: 2019-02-22 Test Time: 07:50:08 Charge Preparation Technician: ANJU MEASUREMENT RESULTS: Intervals: Rate: 75 OR: 120 QRSD: 86 QT: 396 QTc: 442 [place]: P: 38 OR: 120 QRS: 37 T: 40 INTERPRETIVE STATEMENTS: Normal sinus rhythm Normal ECG No previous ECG available for comparison Electronically Signed On 02-22-19 13:46:52 MANAGER DECISION SUPPORT by Andrés Walter
== END 2019-02-22 11:04 | disposition home or self-care (01) ==
LOC: ER 07:35
DX: R09.1 Pleurisy (principal); R07.89 Other chest pain; J45.909 Unspecified asthma, uncomplicated; I27.20 Pulmonary hypertension, unspecified
CPT/HCPCS: 93005; 85025; 80048; 36415; 83735; 85610; 80076; 84484; 83880; 71045; 96375; 96374; 99285; J2930

== ENCOUNTER 2020-08-09 21:12 | Emergency (ER) | payer BC ==
--- OUTSIDE RECORDS SUMMARY | 2020-08-09 21:18 | XMS REPORT | Continuity of Care Document ---
:1970 Author Organization [facility] t Address [address] [place] [address] Care Team Providers Name Role Phone Collins GUY Primary Care Physician DAYSI Attending Clinician Unavailable CO19 Attending Clinician Unavailable MARTIN Attending Clinician Unavailable MCCULLOUGH Attending Clinician Unavailable DAYTON Attending Clinician Unavailable Lab, Fam Pob I Attending Clinician Unavailable TAVAREZ Attending Clinician Unavailable PATKI Attending Clinician Unavailable JANIS Attending Clinician Unavailable ENCISO Attending Clinician Unavailable TAVAREZ Attending Clinician Unavailable DAYTON Attending Clinician Unavailable JEMIMA Attending Clinician Unavailable CHIADIKA Attending Clinician Unavailable ERTAN Attending Clinician Unavailable DAYTON Attending Clinician Unavailable ATHAR Attending Clinician Unavailable Payers Payer Name Policy Type Policy Number Effective Date Expiration Date S brenden BCBSTX PPO [id number] 2018 00:00:00 Problems Condition Condition Condition Status Onset Resolution Last Treating Co mments Source Name Details Category Date Date Treatment Clinician Date R06.2 - Diagnosis Active 2017-03-02 Me moria WHEEZING -08 13:58:00 l R06.2 - 00:01: [place] WHEEZING 00 Active 02/27/2017 MH OPID [place] R06.02 - Diagnosis Active 2015-022016-01-12 M emoria SHORTNESS - 16:05:00 l OF BREATH R06.02 - 00:01: Her garcia SHORTNESS 00 OF BREATH Active 01/11/2016 MH OPID [place] Secondary Secondary Problem Active Uni vers pulmonary pulmonary ity of hypertens[place]ens[place] Physici ans History of History of Problem Resolve Univers Sic[place] d ity of syndrome syndrome [place] Physici ans History of History of Problem Resolve Univers 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 Phys ici involvemen involvemen an s t t Normal Normal Problem Active Univers routine routine ity of physical physical [place] examinatio examinatio Ph ysici n n ans Raynauds Raynauds Problem Active Unive rs phenomenon phenomenon it y of [place] Physici ans Central Central Problem Active Univers hearing hearing ity of loss loss [place] [facility] ans Imbalance Imbalance Problem Active Uni vers ity of [place] [facility] ans Vitamin D Vitamin D Problem Active Uni vers deficiency deficiency it y of [place] [facility] ans Essential Essential Problem Active Uni vers (primary) (primary) ity of hypertensi hypertens[place] Physici ans Dizzy Dizzy Problem Active Univers spells spells ity of [place] [facility]ici ans Insomnia Insomnia Problem Active Unive rs ity of [place] Physici ans Skin rash Skin rash Problem Active Uni vers ity of [place] [facility] ans Tinnitus Tinnitus Problem Active Unive rs of right of right ity of ear ear [place] [facility] ans Hypothyroi Hypothyroi Problem Active U nivers d d ity of [place] Physici ans Glaucoma Glaucoma Problem Active Unive rs ity of [place] [facility]ici ans Chest pain Chest pain Problem Active U nivers ity of [place] [facility]ici ans Ptosis of Ptosis of Problem Active Uni vers right right ity of eyelid eyelid [place] Physici ans Dysarthria Dysarthria Problem Active U nivers and and ity of anarthria anarthria [place] Physici ans Asthma Asthma Problem Active Univers ity of [place] [facility] ans Swelling Swelling Problem Active Unive rs of lower of lower [place] of extremity extremity [place] Physici ans Myalgia Myalgia Problem Active Univers ity of [place] [facility] ans Shortness Shortness Problem Active Uni vers of breath of breath ity of [place] Physici ans Other Other Problem Active Univers complicate complicate it y of d headache d headache [place] syndrome syndrome Physic i ans Gastroesop Gastroesop Problem Active U nivers hageal hageal ity of reflux reflux [place] disease disease Physici without without ans esophagiti esophagiti s s Diffuse Diffuse Problem Active Univers pain in pain in ity of right right [place] upper upper Physici extremity extremity ans Systemic Systemic Problem Active Unive rs sclerosis sclerosis ity of [place] Physici ans Acute Acute Problem Active Univers bilateral bilateral [place]y of knee pain knee pain [place] Physici ans Peptic Peptic Problem Active Univers esophagiti esophagiti it y of s s [place] Physici ans Sensorineu Sensorineu Problem Active U nivers ral ral ity of hearing hearing [place] loss loss Physici (SNHL), (SNHL), ans bilateral bilateral Vestibular Vestibular Problem Active U nivers dysfunctio dysfunctio it y of n, n, [place] unspecifie unspecifie Ph ysici d d ans laterality laterality Tinnitus Tinnitus Problem Active Unive rs of left of left ity of ear ear [place] Physici ans Nocturnal Nocturnal Problem Active Uni vers dyspnea dyspnea ity of [place] Physici ans Snoring Snoring Problem Active Univers ity of [place] Physici ans Raynaud's Problem Active 2013-06-27 Me moria Phenomenon 20:00:56 l [place] Raynaud's Phenomenon Active 06/27/2013 [facility] 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 20:00:56 l Sicca [place] Syndrome Active 4 [facility] Insomnia Problem Active 2013-06-27 Mem oria 20:00:56 l Insomnia Caden n Active 06/27/2013 [facility] Asthma Problem Active 2013-06-27 Memor ia Daytime 20:00:56 l Symptoms Asthma [place] Daytime Symptoms Active 4 [facility] 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 Family History Family Member Diagnosis Comments Start Date Stop Date Source Mother Family history of Univers ity of hyperlipidemia [place] [facility] Father Family history of Univers ity of hyperlipidemia [place] [facility] Brother Family history of Univers ity of hyperlipidemia [place] [facility] Natural father Hypertension [place] Restorationist Maternal Heart disease [place] grandfather Restorationist Maternal Diabetes [place] grandmother Restorationist Natural mother Hypertension [place] Restorationist Natural mother Migraines [place] Restorationist Social History Social Habit Start Date Stop Date Quantity Comments Source Alcohol intake 2017-02-15 2017-02-15 .29 /d [facility]odist 00:00:00 00:00:00 Alcohol Comment 2017-02-15 2017-02-15 per week [facility] ethodist 00:00:00 00:00:00 Tobacco use and 2017-02-15 2017-02-15 Never used Rowe Fabricio ethodist exposure 00:00:00 00:00:00 Social History 2013-06-27 2013-06-27 [facility] Brandon ermann 20:00:56 20:00:56 [birth year] [facility] 00:00:00 00:00:00 Smoking Status Start Date Stop Date Source Never smoker [place] [facility] radha Medications Ordered Filled Start Stop Current Ordering Indication Dosage Frequency Signature Comments Components Source Medication Medication Date Date Medication? Clinician (SIG) Name Name Hydroxychlo Hydroxychlo Yes BLAYNE Q0.5D TAKE 1 Univers roquine roquine 1-29 TAVAREZ TABLET ity o f Sulfate 200 Sulfate 200 00:00: M.D. TWICE [place] MG Oral MG Oral 00 DAILY. Physici Tablet Tablet ans Fluticasone Fluticasone 2020-0 Yes ERNESTO MCCULLOUGH Q0.5D INHALE 1 Univers -Salmeterol -Salmeterol 6-30 M.D. PUFF TWICE ity of 500-50 500-50 00:00: DAILY. [place] MCG/DOSE MCG/DOSE 00 Physici Inhalation Inhalation ans Aerosol Aerosol Powder Powder Breath Breath Activated Activated Fluticasone Fluticasone 2020-0 Yes ERNESTO MCCULLOUGH QD USE 2 Univers Propionate Propionate 6-30 M.D. SPRAYS IN ity of 50 MCG/ACT 50 MCG/ACT 00:00: EACH [place] Nasal Nasal 00 NOSTRIL Physici Suspension Suspension ONCE DAILY ans Ibuprofen Ibuprofen 2019-0 Yes BLAYNE TAKE 1 U nivers 800 MG Oral 800 MG Oral 4-10 TAVAREZ TABLET ity of Tablet Tablet 00:00: M.D. EVERY 12 [place] 00 HOURS Physici AFTER ans MEALS predniSONE predniSONE 2020-0 Yes BLAYNE TAKE 1 Univers 10 MG Oral 10 MG Oral 4-10 TAVAREZ TABLET ity of Tablet Tablet 00:00: M.D. DAILY [place] 00 NEEDED FOR Physici FLARES ans Famotidine Famotidine 2019-0 Yes BLAYNE TAKE 1 Univers 20 MG Oral 20 MG Oral 2-18 TAVAREZ TABLET ity of Tablet Tablet 00:00: M.D. TWICE [place] 00 DAILY WITH Physici IBUPROFEN. ans Amitriptyli Amitriptyli Yes THY TAVAREZ 1 TAKE 1 Univers ne HCl - 10 ne HCl - 10 2-10 M.D. TABLET AT ity of MG Oral MG Oral 00:00: BEDTIME. Ramón as Tablet Tablet 00 Physici ans Dexilant 60 Dexilant 60 2018-02 Yes BLAYNE QD TAKE 1 Univers MG Oral MG Oral 0-08 TAVAREZ CAPSULE BY i ty of Capsule Capsule 00:00: M.D. MOUTH [place] Delayed Delayed 00 EVERY DAY Phys ici Release Release IN THE ans MORNING BEFORE BREAKFAST albuterol 2016-02 Yes 2{puff} Q6H Inhale 2 [place] (PROAIR 2-27 puffs Methodi HFA,PROVENT 14:24: every [address] [place] 56 (six) HFA,VENTOLI hours as N HFA) 90 needed for mcg/actuati wheezing. on inhaler tafluprost, 2016-02 Yes 1[drp] QD 1 drop [place] PF, 2-27 daily. Methodi (ZIOPTAN, 14:24: st PF,) 0.0015 56 % dropperette potassium 2016-02 Yes TAKE 1 [place] chloride 2-06 PACKET BY Method i (KLOR-CON) 00:00: MOUTH st 20 mEq 00 DAILY. packet Furosemide Furosemide 2016-02 Yes ERNESTO MCCULLOUGH TAKE 1 Univers 20 MG Oral 20 MG Oral 2-05 M.D. TABLET BY ity of Tablet Tablet 00:00: MOUTH [place] 00 EVERY DAY Physici ans DIRECTED Potassium Potassium 2016-02 Yes EDIE QD TAKE 1 Univers Chloride 20 Chloride 20 2-05 KAZZAZ PACKET ity of MEQ Oral MEQ Oral 00:00: M.D. DAILY. Ramón as Packet Packet 00 Physici ans furosemide 2016-02 Yes TAKE 1 [place] (LASIX) 20 2-05 TABLET Methodi mg tablet 00:00: DAILY st 00 DIRECTED. hydrOXYzine 2016-02 Yes 25mg QD Take 25 mg Jae (ATARAX) 25 2-02 by mouth Meth enriqueta MG tablet 00:00: nightly as st 00 needed. pilocarpine 2016-02 Yes 5mg [id number] Take 5 mg Jae (SALAGEN) 5 - [id number] by mouth 3 Methodi MG tablet 00:00: 3D (three) st 00 times a day. Pilocarpine Pilocarpine 2016-02 Yes BLAYNE Q0.3333D TAKE 1 Univers HCl - 5 MG HCl - 5 MG 0-30 TAVAREZ TABLET BY ity of Oral Tablet Oral Tablet 00:00: M.D. MOUTH [place] 00 THREE Physici TIMES A ans DAY esomeprazol 2016-02 Yes 20mg QD Take 20 mg Rowe e (NexIUM) 0-30 by mouth Metho di 20 MG 00:00: once st capsule 00 daily. NIFEdipine 2016-02 Yes 30mg QD Take 30 mg [place] XL 0-30 by mouth Methodi (PROCARDIA 00:00: once st XL) 30 MG 00 daily. 24 hr tablet levothyroxi 2016-02 Yes TAKE 1 [place] 0-27 TABLET BY Methodi (SYNTHROID, 00:00: MOUTH [address] LEVOXYL) 50 00 MINUTES mcg tablet BEFORE BREAKFAST hydroCHLORO 2016-02 Yes 25mg QD Take 25 mg Rowe thiazide 0-23 by mouth Methodi (HYDRODIURI 00:00: once st L) 25 MG 00 daily. tablet NIFEdipine 2016-02 Yes TAKE 1 [place] CC (ADALAT 0-23 TABLET Methodi CC) 30 MG 00:00: DAILY st 24 hr 00 DIRECTED. tablet tiZANidine 2016-02 Yes 4mg QD Take 4 mg [place] (ZANAFLEX) 0-23 by mouth Metho di 4 MG tablet 00:00: nightly. st 00 cyanocobala 2016-02 Yes INJECT 1 [place] min 1,000 0-01 CC SQ Methodi mcg/mL 00:00: EVERY WEEK st injection 00 X 3 MONTHS, THEN 1 CC SQ TWICE A MONTH X 2 MONTHS, THEN 1 CC SQ MONTHLY tiZANidine tiZANidine Yes BLAYNE TAKE 1 Univers HCl - 4 MG HCl - 4 MG 5-01 TAVAREZ TABLET BY ity of Oral Tablet Oral Tablet 00:00: M.D. MOUTH [place] 00 EVERYDAY Physici AT BEDTIME ans hydroCHLORO hydroCHLORO 2015-02 Yes ERNESTO MCCULLOUGH TAKE 1 Univers thiazide 25 thiazide 25 2-05 M.D. TABLET BY ity of MG Oral MG Oral 00:00: MOUTH [place] Tablet Tablet 00 EVERY DAY Physic i ans ProAir ProAir 2016-0 Yes ERNESTO MCCULLOUGH INHALE 1-2 Univers RespiClick RespiClick 2-16 M.D. PUFFS it y of 108 (90 108 (90 00:00: EVERY 4 [place] Base) Base) 00 HOURS Physici MCG/ACT MCG/ACT NEEDED ans Inhalation Inhalation Aerosol Aerosol Powder Powder Breath Breath Activated Activated Caltrate 2013- Yes (Active) Barry maggie 600+D TABS 5-08 l 20:00: [place] 56 Vitamin B12 2013- Yes (Active) M emoria TABS 5-08 l 20:00: Benedict 56 Evoxac 30 2013-0 Yes (Active) Mem oria MG Oral 5-08 l Capsule 20:00: [place] 56 HydrOXYzine 2013- Yes ; Start Mem oria HCl 25 MG 4-30 Date: l Oral Tablet 05:00: 06/19/2013 [place] 00 ; End Date: (Active) Amitriptyli 2012-02 Yes ; Start Mem oria ne HCl 10 0-28 Date: l MG Oral 05:00: 12/17/2012 Herm ben Tablet 00 ; End Date: (Active) Proventil 2012-02 Yes ; Start Memor ia HFA 108 (90 0-15 Date: l Base) 05:00: 12/04/2012 [place] MCG/ACT 00 ; End Inhalation Date: Aerosol Solution (Active) Omeprazole 2011-02 Yes ; Start Barry maggie 20 MG Oral 0-29 Date: l Capsule 05:00: 12/19/2011 Herm ben Delayed 00 ; End Release Date: (Active) Nifedical 2011-02 Yes ; Start Memor ia XL 30 MG 0-29 Date: l Oral Tablet 05:00: 12/19/2011 Benedict Extended 00 ; End Release 24 Date: Hour (Active) Cevimeline 2011-02 Yes ; Start Barry maggie HCl 30 MG 0-29 Date: l Oral 05:00: 12/19/2011 [place] Capsule 00 ; End Date: (Active) Nifedical 2011-02 Yes ; Start Memor ia XL 30 MG 0-29 Date: l Oral Tablet 05:00: 12/19/2011 [place] Extended 00 ; End Release 24 Date: Hour (Active) NIFEdipine NIFEdipine 2011-02 Yes BLAYNE QD TAKE 1 Univers ER 90 MG ER 90 MG 0-29 TAVAREZ TABLET BY ity of Oral Tablet Oral Tablet 00:00: M.D. MOUTH [place] Extended Extended 00 EVERY DAY Ph ysici Release 24 Release 24 ans Hour Hour Synthroid Yes ; Start Memor ia 25 MCG Oral 06-20 Date: l Tablet 05:00: 06/20/2005 Maeve nn 00 (Active) Synthroid Synthroid Yes QD TAKE Uni vers 25 MCG Oral 25 MCG Oral - TABLET ity of Tablet Tablet 00:00: DAILY [place] 00 Physici ans Ibuprofen 190-0 Yes ; Start Memor ia 800 MG Oral 02-20 Date: l Tablet 06:00: Maeve nn 00 ; End Date: (Active) Zioptan Zioptan Yes Univers 0.0015 % 0.0015 % ity of Ophthalmic Ophthalmic Ramón as Solution Solution Physici ans Vitamin B12 Vitamin B12 Yes QD TAKE 1 Univers TABS TABS TABLET ity of DAILY [place] DIRECTED. Physici ans Caltrate Caltrate Yes 1 QD TAKE 1 Unive rs 600+D TABS 600+D TABS TABLET i ty of DAILY [place] Physici ans Fluticasone Fluticasone Yes ERNESTO MCCULLOUGH INHALE 1 Univers -Salmeterol -Salmeterol M.D. PUFF BY ity of 500-50 500-50 MOUTH [place] MCG/DOSE MCG/DOSE TWICE Physic i Inhalation Inhalation DAILY an s Aerosol Aerosol Powder Powder Breath Breath Activated Activated Vital Signs Vital Name Observation Time Observation Value Comments Source Systolic blood 2020-03-20 122 mm[Hg] University of pressure 11:10:00 [place] [facility]ician s Diastolic blood 2020-03-20 80 mm[Hg] University o f pressure 11:10:00 [place] [facility] s Body height 2020-03-20 65 [in_us] [facility] 11:10:00 [place] [facility]ician s Weight 2020-03-20 159 [lb_av] [facility] 11:10: [place] [facility] s Body mass index 2020-03-20 26.46 kg/m2 [place] o f (BMI) [Ratio] 11:10:00 [place] Cali ely Body temperature 2020-03-20 97.4 [degF] University of 11:10:00 [place] [facility] Heart Rate 2020-03-20 78 /min University of 11:10:00 [place] [facility] s Body temperature 2019-11-26 97.6 [degF] University of 12:48:00 [place] [facility]ician s Systolic blood 2019-09-02 160 mm[Hg] Location: [facility] of pressure 13:21:00 Position: [place] Physician s Sitting Diastolic blood 2019-09-02 112 mm[Hg] Location: [facility] [place] University of pressure 13:21:00 Position: [place] Physician s Sitting Body height 2019-09-02 65 [in_us] University of 13:21:00 [place] Physician s Weight 2019-09-02 152.125 [lb_av] University o f 13:21:00 [place] [facility]ician s Body mass index 2019-09-02 25.32 kg/m2 University o f (BMI) [Ratio] 13:21:00 [place] Physicia ns Body temperature 2019-09-02 97.5 [degF] Method: Oral University of 13:21:00 [place] Physician s Heart Rate 2019-09-02 93 /min Location: [facility] of 13:21:00 Brachial [place] [facility]ician s Artery; Systolic blood 2019-04-09 128 mm[Hg] University of pressure 14:59:00 [place] [facility] s Diastolic blood 2019-04-09 88 mm[Hg] University o f pressure 14:59:00 [place] Phys[facility] s Body height 2019-04-09 65 [in_us] University of 14:59:00 [place] Physician s Weight 2019-04-09 150 [lb_av] University of 14:59:00 [place] [facility]ician s Body mass index 2019-04-09 24.96 kg/m2 University o f (BMI) [Ratio] 14:59:00 [place] Physicia ns Body temperature 2019-04-09 98.1 [degF] University of 14:59:00 [place] [facility] s Heart Rate 2019-04-09 76 /min University of 14:59:00 [place] [facility] s Respiratory rate 2019-04-09 16 /min University of 14:59:00 [place] [facility] s O2 SAT 2019-04-09 98 % University of 14:59:00 [place] [facility] s Systolic blood 2019-04-01 125 mm[Hg] University of pressure 08:55:00 [place] [facility] s Diastolic blood 2019-04-01 80 mm[Hg] University o f pressure 08:55:00 [place] [facility]ician s Weight 2019-04-01 149 [lb_av] University 08:55:00 [place] [facility] s Body mass index 2019-04-01 24.79 kg/m2 University o f (BMI) [Ratio] 08:55:00 [place] Physicia ns Heart Rate 2019-04-01 78 /min University 08:55:00 [place] [facility] s Respiratory rate 2019-04-01 14 /min [facility] 08:55:00 [place] [facility] s BP Systolic 2019-01-08 137 mm[Hg] University 13:18:00 [place] [facility] s BP Diastolic 2019-01-08 97 mm[Hg] University 13:18:00 [place] [facility] s Height 2019-01-08 65 [in_us] University 13:18:00 [place] [facility] s Weight 2019-01-08 142 [lb_av] [facility] 13:18:00 [place] [facility] s Body Mass Index 2019-01-08 23.63 kg/m2 University o f Calculated 13:18:00 [place] [facility] s Temperature 2019-01-08 95.8 [degF] Method: University 13:18:00 Tympanic [place] [facility] s Heart Rate 2019-01-08 83 /min University 13:18:00 [place] [facility] s Respiration Rate 2019-01-08 18 /min [facility] 13:18:00 [place] [facility] s O2 SAT 2019-01-08 98 % Source: [facility] 13:18:00 [place] Physician s BP Systolic 2018-11-27 130 mm[Hg] Location: [facility] 10:36:00 Position: [place] Physician s Sitting BP Diastolic 2018-11-27 85 mm[Hg] Location: [facility] 10:36:00 Position: [place] Physician s Sitting Height 2018-11-27 65 [in_us] University of 10:36:00 [place] Physician s Weight 2018-11-27 149.25 [lb_av] University of 10:36:00 [place] [facility]ician s Body Mass Index 2018-11-27 24.84 kg/m2 University o f Calculated 10:36:00 [place] Phys[facility] s Temperature 2018-11-27 98.1 [degF] Method: Oral University 10:36:00 [place] [facility] s Heart Rate 2018-11-27 71 /min [facility] 10:36:00 [place] [facility] s BP Systolic 2018-10-30 122 mm[Hg] [facility] 14:36:00 [place] [facility]ician s BP Diastolic 2018-10-30 84 mm[Hg] University of 14:36:00 [place] [facility] s Height 2018-10-30 65 [in_us] University of 14:36:00 [place] [facility] s Weight 2018-10-30 147 [lb_av] University 14:36:00 [place] [facility] s Body Mass Index 2018-10-30 24.46 kg/m2 University o f Calculated 14:36:00 [place] [facility] s Heart Rate 2018-10-30 72 /min University 14:36:00 [place] [facility] s Respiration Rate 2018-10-30 18 /min University of 14:36:00 [place] [facility] s O2 SAT 2018-10-30 97 % Source: [facility] 14:36:00 [place] [facility] s BP Systolic 2018-10-30 122 mm[Hg] University 13:56:00 [place] [facility] s BP Diastolic 2018-10-30 84 mm[Hg] [facility] 13:56:00 [place] [facility] s Height 2018-10-30 65 [in_us] [facility] 13:56:00 [place] [facility]ician s Weight 2018-10-30 147 [lb_av] University 13:56:00 [place] [facility] s Body Mass Index 2018-10-30 24.46 kg/m2 University o f Calculated 13:56:00 [place] [facility] s Heart Rate 2018-10-30 72 /min University 13:56:00 [place] [facility] s Respiration Rate 2018-10-30 18 /min [facility] 13:56:00 [place] [facility] s O2 SAT 2018-10-30 97 % Source: [facility] 13:56:00 [place] [facility]ician s BP Systolic 2018-10-02 120 mm[Hg] Location: [facility] 13:58:00 Position: [place] Physician s Sitting BP Diastolic 2018-10-02 91 mm[Hg] Location: [facility] 13:58:00 Position: [place] Physician s Sitting Height 2018-10-02 65 [in_us] University 13:58:00 [place] [facility] s Weight 2018-10-02 146 [lb_av] University 13:58:00 [place] [facility] s Body Mass Index 2018-10-02 24.3 kg/m2 University o f Calculated 13:58:00 [place] [facility] s Temperature 2018-10-02 97.6 [degF] Method: [facility] 13:58:00 Temporal [place] [facility]ician s Heart Rate 2018-10-02 75 /min University of 13:58:00 [place] [facility] s BP Systolic 2018-06-05 118 mm[Hg] [place] [facility] [place] of 09:17:00 Position: [place] Physician s Sitting BP Diastolic 2018-06-05 76 mm[Hg] Location: JESSY; [facility] 09:17:00 Position: [place] Physician s Sitting Height 2018-06-05 65 [in_us] University of 09:17:00 [place] [facility] s Weight 2018-06-05 143.375 [lb_av] University o f 09:17:00 [place] [facility] s Body Mass Index 2018-06-05 23.86 kg/m2 University o f Calculated 09:17:00 [place] [facility]ician s Temperature 2018-06-05 98.3 [degF] Method: Oral [place] of 09:17:00 [place] [facility] s Heart Rate 2018-06-05 71 /min Location: [facility] 09:17:00 Brachial [place] [facility]ician s Artery; BP Systolic 2018-03-09 116 mm[Hg] [facility] 14:40:[facility] Position: [place] Physician s Sitting BP Diastolic 2018-03-09 78 mm[Hg] Location: Tr[facility]; [facility] 14:40:00 Position: [place] Physician s Sitting Temperature 2018-03-09 99.1 [degF] Method: Oral University of 14:40:00 [place] [facility] s Heart Rate 2018-03-09 90 /min University of 14:40:00 [place] Phys[facility] s Height 2018-03-09 65 [in_us] University of 14:40:00 [place] [facility] s Weight 2018-03-09 143 [lb_av] University of 14:40:00 [place] [facility] s Body Mass Index 2018-03-09 23.8 kg/m2 University o f Calculated 14:40:00 [place] [facility] s BP Systolic 2018-02-27 110 mm[Hg] Location: [place]; [place] of 14:11:00 Position: [place] Physician s Sitting BP Diastolic 2018-02-27 78 mm[Hg] Location: CINDY; [place] of 14:11:00 Position: [place] [facility]ician s Sitting Weight 2018-02-27 141 [lb_av] University of 14:11:00 [place] [facility] s Body Mass Index 2018-02-27 23.46 kg/m2 University o f Calculated 14:11:00 [place] [facility] s Height 2018-02-27 65 [in_us] University of 14:11:00 [place] [facility] s Heart Rate 2018-02-27 82 /min [facility] 14:11:00 [place] [facility] s O2 SAT 2018-02-27 94 % Source: [facility] 14:11:00 [place] [facility] s Respiration Rate 2018-02-27 18 /min [place] of 14:11:00 [place] [facility] s BP Systolic 2017-12-18 126 mm[Hg] Location: [facility] 09:22:00 Position: [place] Physician s Sitting BP Diastolic 2017-12-18 88 mm[Hg] [facility] 09:22:[facility] Position: [place] [facility]ician s Sitting Height 2017-12-18 65.43 [in_us] University of 09:22:00 [place] [facility] s Weight 2017-12-18 142 [lb_av] [place] of 09:22:00 [place] [facility] s Body Mass Index 2017-12-18 23.32 kg/m2 University o f Calculated 09:22:00 [place] [facility] s Temperature 2017-12-18 98.2 [degF] Method: Oral [facility] 09:22:00 [place] [facility] s Heart Rate 2017-12-18 65 /min Location: [facility] 09:22:00 Brachial [place] [facility] s Artery; BP Systolic 2017-08-22 107 mm[Hg] Location: [facility] :04:00 Position: [place] Physician s Sitting BP Diastolic 2017-08-22 74 mm[Hg] Location: [facility] 14:04:00 Position: [place] Physician s Sitting Height 2017-08-22 65.43 [in_us] [place] of :04:00 [place] [facility] s Body Mass Index 2017-08-22 23.49 kg/m2 [place] o f Calculated 14:04:00 [place] [facility] s Weight 2017-08-22 143.05 [lb_av] University of 14:04:00 [place] [facility] s Temperature 2017-08-22 98 [degF] Method: Oral [place] of 14:04:00 [place] [facility] s Heart Rate 2017-08-22 88 /min Location: [facility] of :04:00 Brachial [place] [facility]ician s Artery; Quality: Normal Respiration Rate 2017-08-22 22 /min Quality: Normal Universi ty of 14:04:00 [place] [facility] s O2 SAT 2017-08-22 96 % Source: [facility] 14:04:00 [place] Physician s BP Systolic 2017-08-22 151 mm[Hg] [facility] 08:55:[facility] Position: [place] Physician s Sitting BP Diastolic 2017-08-22 81 mm[Hg] [facility] 08:55:00 Position: [place] [facility]ician s Sitting Height 2017-08-22 65 [in_us] University of 08:55:00 [place] [facility] Body Mass Index 2017-08-22 24.46 kg/m2 University o f Calculated 08:55:00 [place] [facility] Weight 2017-08-22 147 [lb_av] University of 08:55:00 [place] [facility] Temperature 2017-08-22 97.9 [degF] Method: Oral University of 08:55:00 [place] [facility] Heart Rate 2017-08-22 80 /min University of 08:55:00 [place] [facility] BP Systolic 2017-07-18 122 mm[Hg] University of 14:37:00 [place] [facility] BP Diastolic 2017-07-18 87 mm[Hg] University of 14:37:00 [place] [facility] Height 2017-07-18 65 [in_us] University of 14:37:00 [place] [facility] Weight 2017-07-18 147.5 [lb_av] University of 14:37:00 [place] [facility] Body Mass Index 2017-07-18 24.55 kg/m2 University o f Calculated 14:37:00 [place] [facility] Heart Rate 2017-07-18 70 /min University of 14:37:00 [place] [facility] Respiration Rate 2017-07-18 18 /min University of 14:37:00 [place] [facility] O2 SAT 2017-07-18 96 % Source: [facility] 14:37:00 [place] [facility] BP Systolic 2017-06-16 120 mm[Hg] [facility]14: Position: [place] [facility] Sitting BP Diastolic 2017-06-16 78 mm[Hg] Location: Trini; [facility] 10:14:00 Position: [place] [facility] Sitting Height 2017-06-16 65 [in_us] University of 10:14:00 [place] [facility] Weight 2017-06-16 148.5 [lb_av] University of 10:14:00 [place] [facility] Body Mass Index 2017-06-16 24.71 kg/m2 University o f Calculated 10:14:00 [place] [facility] Temperature 2017-06-16 98.2 [degF] Method: Oral University of 10:14: [place] [facility] Heart Rate 2017-06-16 89 /min Location: [facility] 10:14:00 Brachial [place] [facility] Artery; BP Systolic 2017-05-17 117 mm[Hg] University of 09:47:00 [place] [facility] BP Diastolic 2017-05-17 81 mm[Hg] University of 09:47:00 [place] [facility] Weight 2017-05-17 149 [lb_av] University 09:47:00 [place] [facility] Body Mass Index 2017-05-17 24.79 kg/m2 University o f Calculated 09:47:00 [place] [facility] Heart Rate 2017-05-17 69 /min University of 09:47:00 [place] [facility] Respiration Rate 2017-05-17 16 /min [facility] 09:47:00 [place] [facility] BP Systolic 2017-02-28 144 mm[Hg] Location: [facility] 08:40:00 Position: [place] [facility] Sitting BP Diastolic 2017-02-28 92 mm[Hg] Location: [facility] 08:40:00 Position: [place] [facility] Sitting Height 2017-02-28 65 [in_us] [facility] 08:40:00 [place] [facility] Weight 2017-02-28 157 [lb_av] [facility] 08:40:00 [place] [facility] Body Mass Index 2017-02-28 26.13 kg/m2 University o f Calculated 08:40:00 [place] [facility] Temperature 2017-02-28 97.9 [degF] Method: Oral University of 08:40:00 [place] [facility] Heart Rate 2017-02-28 68 /min Location: [facility] 08:40:00 Brachial [place] [facility] Artery; BP Systolic 2017-02-21 133 mm[Hg] University of 15:29:00 [place] [facility] BP Diastolic 2017-02-21 86 mm[Hg] University of 15:29:00 [place] [facility] Height 2017-02-21 65 [in_us] University of 15:29:00 [place] [facility] Weight 2017-02-21 159 [lb_av] University of 15:29:00 [place] [facility] Body Mass Index 2017-02-21 26.46 kg/m2 University o f Calculated 15:29:00 [place] [facility] Temperature 2017-02-21 98 [degF] University of 15:29:00 [place] [facility] Heart Rate 2017-02-21 71 /min University of 15:29:00 [place] [facility] Respiration Rate 2017-02-21 16 /min University of 15:29:00 [place] [facility] O2 SAT 2017-02-21 98 % University of 15:29:00 [place] [facility] BP Systolic 2017-01-24 130 mm[Hg] Location: C[place]Y; [place] of :05:00 Position: [place] [facility] Sitting BP Diastolic 2017-01-24 85 mm[Hg] Location: CINDY; [facility] 14:05:00 Position: [place] [facility] Sitting Height 2017-01-24 65 [in_us] University of 14:05:00 [place] [facility] Weight 2017-01-24 160 [lb_av] University of 14:05:00 [place] [facility] Body Mass Index 2017-01-24 26.63 kg/m2 University o f Calculated 14:05:00 [place] [facility] Heart Rate 2017-01-24 66 /min Location: R [facility] :05:00 Radial; [place] [facility] Temperature 2017-01-24 98 [degF] Method: [facility] 14:05:00 Temporal [place] [facility] Respiration Rate 2017-01-24 16 /min [facility] :05:00 [place] [facility] O2 SAT 2017-01-24 94 % University of :05:00 [place] [facility] BP Systolic 2016-12-20 133 mm[Hg] Location: CINDY; [place] of 08:36:00 Position: [place] [facility] Sitting BP Diastolic 2016-12-20 84 mm[Hg] Location: CINDY; [facility] 08:36:00 Position: [place] [facility] Sitting Height 2016-12-20 65 [in_us] University of 08:36:00 [place] [facility] Weight 2016-12-20 156.125 [lb_av] University o f 08:36:00 [place] [facility] Body Mass Index 2016-12-20 25.98 kg/m2 University o f Calculated 08:36:00 [place] [facility] Temperature 2016-12-20 98.2 [degF] Method: Oral University of 08:36:00 [place] [facility] Heart Rate 2016-12-20 67 /min University of 08:36:00 [place] [facility] BP Systolic 2016-12-19 137 mm[Hg] Location: JESSY; [facility] 08:59:00 Position: [place] [facility] Sitting BP Diastolic 2016-12-19 86 mm[Hg] Location: JESSY; [facility] 08:59:00 Position: [place] [facility] Sitting Height 2016-12-19 65 [in_us] University of 08:59:00 [place] [facility] Weight 2016-12-19 158.125 [lb_av] [facility] 08:59:00 [place] [facility] Body Mass Index 2016-12-19 26.31 kg/m2 [facility] Calculated 08:59:00 [place] [facility] Temperature 2016-12-19 97.8 [degF] Method: Oral [facility] 08:59:00 [place] [facility] Heart Rate 2016-12-19 73 /min [facility] 08:59:00 [place] [facility] Procedures Procedure Date / Time Performing Clinician Source Performed Polysomnography, sleep 2020-03-31 00:00:00 [facility] staging with 4+ parameters Physi cians of sleep, attended by a technologist [QL] CBC (INCLUDES 2020-03-20 00:00:00 [facility] DIFF/PLT) Physicians [QL] CMP W/EGFR 2020-03-20 00:00:00 [facility] Physicians [QL] C-REACTIVE PROTEIN 2020-03-20 00:00:00 [facility] Physicians [QL] URINALYSIS, COMPLETE 2020-03-20 00:00:00 Un [facility] Physicians [QL] CREATINE KINASE, 2020-03-20 00:00:00 [facility] TOTAL Physicians [N] 2D Echo complete, with 2020-03-20 00:00[facility] 14240 Physicians MRI Brain w/wo contrast 2020-03-20 00:00:00 [facility] [address] Physicians . [facility] - 2020-03-03 00:00:00 [facility] COVID-19/SARS-Cov-2 Physicians Complete PFTs w/DLCO and 2019-08-20 00:00:00 [facility] Lung Volumes Physicians . [facility] - 2019-08-20 00:00:00 [facility] COVID-19/SARS-Cov-2 Physicians [QL] CBC (INCLUDES 2019-05-31 00:00:00 [facility] DIFF/PLT) Physicians [QL] CMP W/EGFR 2019-05-31 00:00:00 [facility] Physicians [QL] C-REACTIVE PROTEIN 2019-05-31 00:00:00 [facility] Physicians [QL] SED RATE BY MODIFIED 2019-05-31 00:00:00 Un [facility] Phys[facility] [QL] URINALYSIS, COMPLETE 2019-05-31 00:00:00 [facility] [QL] IMMUNOFIXATION, SERUM 2019-05-31 00:00:00 [facility] Phys[facility] [QL] PROTEIN, TOTAL AND 2019-05-31 00:00:00 Univ [facility] PROTEIN ELECTROPHORESIS Physicia ns [QL] CREATINE KINASE, 2019-05-31 00:00:00 [facility] [UTP] EMG 2019-04-01 00:00:00 [place] [facility] Physicians CTA Chest [id number] 2019-01-08 00:00:00 [facility] Physicians [QLH] CBC (INCLUDES 2018-11-27 00:00:00 [facility] DIFF/PLT) Physicians [QLH] CMP W/EGFR 2018-11-27 00:00:00 [facility] Physicians [QLH] C-REACTIVE PROTEIN 2018-11-27 00:00:00 Uni [facility] Physicians [QLH] URINALYSIS, COMPLETE 2018-11-27 00:00:00 U [facility] Physicians [QLH] CREATINE KINASE, 2018-11-27 00:00:00 Unive [facility] TOTAL Physicians Complete PFTs w/DLCO and 2018-10-30 00:00:00 Uni [facility] Lung Volumes Physicians [N] 2D Echo complete, with 2018-10-30 00:00:00 U [facility] Doppler 17346 Physicians Complete PFTs w/DLCO and 2018-06-05 00:00:00 Uni [facility] Lung Volumes Physicians [U] XRAY KNEE 4 OR MORE 2018-05-09 00:00:00 Univ [facility] VWS BILATERAL 18221 Physicians [QLH] CBC (INCLUDES 2017-11-01 00:00:00 [facility] DIFF/PLT) Physicians [QLH] CMP W/EGFR 2017-11-01 00:00:00 [facility] Physicians [QLH] C-REACTIVE PROTEIN 2017-11-01 00:00:00 Uni [facility] Physicians [QLH] SED RATE BY MODIFIED 2017-11-01 00:00:00 U [facility] WESTERGREN Physicians [QLH] CREATINE KINASE, 2017-11-01 00:00:00 [facility] [place] TOTAL Physicians [QLH] URINALYSIS, COMPLETE 2017-11-01 00:00:00 [facility] [QLH] BASIC METABOLIC 2017-08-22 00:00:00 [facility] PANEL W/EGFR Physicians [QLH] CMP W/EGFR 2017-07-18 00:00:00 [facility] Physicians [N] 2D Echo complete, with 2017-07-18 00:00:00 U [facility] Doppler 65516 Physicians [QLH] CBC (INCLUDES 2017-06-16 00:00:00 [facility] DIFF/PLT) Physicians [QLH] CMP W/EGFR 2017-06-16 00:00:00 [facility] Physicians [QLH] URINALYSIS, COMPLETE 2017-06-16 00:00:00 U [facility] Physicians [QL] COMPLEMENT COMP C3 + 2017-06-16 00:00:00 Un [facility] C4 Physicians [H] Immunofixation 2017-06-16 00:00:00 [facility] Eletrophoresis Physicians [H] Protein 2017-06-16 00:00:00 [place] [facility] [place] Electrophoresis Physicians [QLH] SED RATE BY MODIFIED 2017-06-06 00:00:00 U [facility] WESTERGREN Physicians [H] CRP, hs, Cardiac Risk 2017-06-06 00:00:00 Un [facility] Physicians [QLH] CREATINE KINASE, 2017-06-06 00:00:00 [facility] TOTAL Physicians [QLH] VITAMIN D, 2017-06-06 00:00:00 [facility] 25-HYDROXY, LC/MS/MS Physicians [QLH] TSH, 3RD GENERATION 2017-06-06 00:00:00 Un [facility] W/REFLEX TO FT4 Physicians [QLH] ACETYLCHOLINE 2017-06-06 00:00:00 Universi ty [facility] RECEPTOR BINDING ANTIBODY Physic ians [QLH] ACETYLCHOLINE 2017-06-06 00:00:00 Universi ty [facility] RECEPTOR BLOCKING ANTIBODY Physi cians [QLH] ACETYLCHOLINE 2017-06-06 00:00:00 Universi ty [facility] RECEPTOR MODULATING Physicians ANTIBODY [QLH] ACETYLCHOLINE 2017-05-30 00:00:00 Universi ty [facility] RECEPTOR BINDING ANTIBODY Physic ians [QLH] ACETYLCHOLINE 2017-05-30 00:00:00 Universi ty [facility] RECEPTOR BLOCKING ANTIBODY Physi cians [QLH] ACETYLCHOLINE 2017-05-30 00:00:00 [facility] RECEPTOR MODULATING Physicians ANTIBODY [QLH] VITAMIN D, 2017-05-30 00:00:00 [facility] 25-HYDROXY, LC/MS/MS Physicians [QLH] TSH, 3RD GENERATION 2017-05-30 00:00:00 [facility] W/REFLEX TO FT4 Physicians [QLH] SED RATE BY MODIFIED 2017-05-30 00:00:00 [facility] WESTERGREN Physicians [QLH] CREATINE KINASE, 2017-05-30 00:00:00 [facility] [place] [facility] TOTAL Physicians [QLH] C-REACTIVE PROTEIN 2017-05-30 00:00:00 Uni [facility] Physicians [UTP] EMG 2017-05-17 00:00:00 [facility] Physicians [QLH] BASIC METABOLIC 2017-02-21 00:00[facility]00 [facility] PANEL W/EGFR Physicians [QLH] MAGNESIUM 2017-02-21 00:00:00 [place] [facility] Physicians US Extremity lower venous 2017-02-21 00:00:00 [facility] doppler bilat 08714 Physicians [place] [id number] 2017-02-21 00:00:00 [facility] Physicians [N] Stress Echo [id number] 2017-01-23 00:00:00 Univer [facility] Physicians Complete PFTs w/DLCO and 2017-01-10 00:00:00 Uni [facility] Lung Volumes Physicians [N] 2D Echo complete, with 2017-01-10 00:00:00 [facility] Doppler 34369 Physicians History of Tonsillectomy Univers [facility] [place] [facility] Physicians History of Hysterectomy [facility] Physicians Plan of Care Planned Activity Planned Date Details Comments Source Future Scheduled Test 2020-09-20 INFLUENZA VACCINE [facility] [place] [facility] 00:00:00 [code = INFLUENZA VACCINE] Future Scheduled Test 2020 BREAST CANCER [place] [facility] 00:00:00 SCREENING [code = BREAST CANCER SCREENING] Future Scheduled Test 2020 COLONOSCOPY [place] [facility] 00:00:00 SCREENING [code = COLONOSCOPY SCREENING] Future Scheduled Test 2020 SHINGLES VACCINES [facility] [facility] 00:00:00 (#1) [code = SHINGLES VACCINES (#1)] Diagnostic Test 2020-03-20 [N] 2D Echo [facility] Pending 00:00:00 complete, with Physicians Doppler 93252 [code = [N] 2D Echo complete, with Doppler 09051] Diagnostic Test 2019-08-20 Complete PFTs w/DLCO [facility] Pending 00:00:00 and Lung Volumes Physicians [code = Complete PFTs w/DLCO and Lung Volumes] Diagnostic Test 2019-08-20 Complete PFTs w/DLCO [facility] Pending 00:00:00 and Lung Volumes Physicians [code = Complete PFTs w/DLCO and Lung Volumes] Diagnostic Test 2019-04-16 [UTP] EMG [code = [facility] Pending 00:00:00 [UTP] EMG] Physicians Diagnostic Test 2019-04-01 [UTP] EMG [code = [facility] Pending 00:00:00 [UTP] EMG] Physicians Diagnostic Test 2018-11-30 [N] 2D Echo [facility] Pending 00:00:00 complete, with Physicians Doppler 99897 [code = [N] 2D Echo complete, with Doppler 90897] Diagnostic Test 2018-10-30 [N] 2D Echo [facility] Pending 00:00:00 complete, with Physicians Doppler 64075 [code = [N] 2D Echo complete, with Doppler 73143] Diagnostic Test 2018-07-04 Complete PFTs w/DLCO [facility] Pending 00:00:00 and Lung Volumes Physicians [code = Complete PFTs w/DLCO and Lung Volumes] Diagnostic Test 2018-06-05 Complete PFTs w/DLCO [facility] Pending 00:00:00 and Lung Volumes Physicians [code = Complete PFTs w/DLCO and Lung Volumes] Diagnostic Test 2017-01-23 [N] Stress Echo [facility] Pending 00:00:00 63764 [code = [N] Physicians Stress Echo 94668] Diagnostic Test 2017-01-23 [N] Stress Echo [facility] Pending 00:00:00 16879 [code = [N] Physicians Stress Echo 01586] Diagnostic Test 2017-01-10 [N] 2D Echo [facility] [place] Pending 00:00:00 complete, with Physicians Doppler 92395 [code = [N] 2D Echo complete, with Doppler 14168] Future Scheduled Test 2013-06-27 Plan of Care [code = [facility] 20:00:56 12950-0] Future Scheduled Test 2013-06-19 Plan of Care [code = [facility] 15:00:30 33593-8] Future Scheduled Test 2013-04-10 Plan of Care [code = [facility] 16:05:49 78315-1] Future Scheduled Test 2013-02-18 Plan of Care [code = [facility] 15:15:18 37571-1] Future Scheduled Test 2012-12-17 Plan of Care [code = [facility] 16:30:54 49711-1] Future Scheduled Test 1991 Screening for [place] [facility] 00:00:00 malignant neoplasm of cervix (procedure) [code = 601906931] Future Scheduled Test 1982 COVID-19 VACCINE (1) [place] [facility] 00:00:00 [code = COVID-19 VACCINE (1)] Future Appointment 2020-11-24 REMEDIOS BRUCE, [facility] 10:30:00 Physicians Future Appointment 2020-11-24 GRETTA PERSAUD, [facility] 10:30:00 Physicians Encounters Start End Encounter Admission Attending Care Care Encounter Source Date/Time Date/Time Type Type Clinicians Facility Department ID 2020-06-27 Outpatient [facility] [id number] [place] 03:05:45 [facility] 2020-04-21 2020-04-21 Appointmen TIMOTHY CATHERINE UTP [id number] Univers 09:30:00 09:30:00 t; COFang, NURSE-COOLE i ty of NURSE-COOL Y [place] EY Physici ans 2020-04-17 2020-04-17 AppointTIMOTHY Raymond UTP [id number] Univers 11:30:00 11:30:00 t; SHAKA SALAZAR ity of ECHO [place] Physici ans 2020-03-31 2020-03-31 Appointmen TIMOTHY MCCULLOUGH Pulmonary & [id number] Univers 13:00:00 13:00:00 t; ERNESTO MCCULLOUGH M.D. Sleep i ty of ERNESTO, M.D. [place] [facility] 2020-03-31 2020-03-31 [facility] [id number] [facility] 10:30:00 10:30:00 t; rachel BURRIS of [facility] 2020-03-25 2020-03-25 Laboratory Lab, [facility] 1..[id number] 07:52:37 08:12:37 Only Fam Pob I Health [id number] [place] [id number] Professio [phone] nal 0[address] One 2020-03-20 2020-03-20 Appointmen TIMOTHY TAVAREZ [facility] [id number] [facility] 11:30:00 11:30:00 t; BLAYNE TAVAREZ M.D. lty - ity of [place] CISNEROS [facility] 2019-12-31 2019-12-31 Laboratory Lab, [facility] 1..[id number] 18:01:35 18:06:38 Only Fam Pob I Health [id number] [place] [id number] Professio [phone] nal 044 Office [address] One 2019-11-26 2019-11-26 Appointmen TIMOTHY ROSS Otorhinolar [id number] [facility] 13:00:00 13:00:00 t; ROXANA ROSS yngology - ity of [place] [facility]T [facility] 2019-11-26 2019-11-26 Appointmen REMEIDOS BRUCE Otorhinolar [id number] Univers 11:00:00 11:00:00 t; tao BRUCE - i ty of REMEDIOS [facility]ici Center [facility] 2019-09-30 2019-09-30 Laboratory Lab, [place] [id number] 11:06:31 11:26:31 Only Fam Pob I Health [id number] [place] [id number] Professio [phone] nal 044 Office [address] One 2019-09-02 2019-09-02 AppointTIMOTHY Hilliard Rheumatolog [id number] Univers 13:30:00 13:30:00 t; BLAYNE TAVAREZ M.D. y ity of [place] CISNEROS [place] Physici ans 2019-08-20 2019-08-20 AppointTIMOTHY Murphy Pulmonary & [id number] Univers 13:00:00 13:00:00 t; ERNESTO MCCULLOUGH M.D. Sleep i ty of [place] OROZCO [place] [facility] ans 2019-06-26 2019-06-26 AppointTIMOTHY Mccall [id number] Univers 09:00:00 09:00:00 t; [place] ENCISO TOVAR [place] Physici ans 2019-06-26 2019-06-26 Outpatient [facility] [id number] [facility] 08:04:00 08:04:00 2019-05-31 2019-05-31 TIMOTHY Jackson Multispecia [id number] Univers 10:00:00 10:00:00 t; BLAYNE TAVAREZ M.D. lty - ity of [place] CISNEROS [facility] Physici ans 2019-04-23 2019-04-23 TIMOTHY Deleon [facility] [id number] Univers 11:40:00 11:40:00 t; [place] ENCISO [facility] Physici ans 2019-04-23 2019-04-23 Outpatient [facility] [id number] [facility] 11:25:00 11:25:00 2019-04-16 2019-04-16 AppointTIMOTHY Hilliard Neurology - [id number] Univers 08:30:00 08:30:00 t; HEMANTH TAVAREZ M.D. [place] i ty of [place] SAXENA [facility] Physici ans 2019-04-09 2019-04-09 AppointTIMOTHY Murphy Pulmonary & [id number] Univers 14:40:00 14:40:00 t; ERNESTO MCCULLOUGH M.D. Sleep i ty of [place] OROZCO [place] [facility] ans 2019-04-01 2019-04-01 TIMOTHY Jackson Neurology - [id number] Univers 09:15:00 09:15:00 t; HEMANTH TAVAREZ M.D. [place] i ty of [place] SAXENA [facility] Physici ans 2019-01-08 2019-01-08 AppointTIMOTHY Murphy Internal [id number] Univers 13:40:00 13:40:00 t; ERNESTO MCCULLOUGH M.D. Medicine - ity of [place] OROZCO [facility] Physici [place] ans 2018-12-20 2018-12-20 AppointTIMOTHY Mckinney Non-Invasiv [id number] Univers 11:30:00 11:30:00 t; SHAKA BURRIS1 e - [place] i ty of ECHO1 [facility] ans 2018-11-30 2018-11-30 Dar BURRIS [facility] UTP [id number] Univers 13:00:00 13:00:00 t; [place] ity of PFT [facility] ans 2018-11-30 2018-11-30 AppointTIMOTHY Hilliard UTP [id number] Univers 10:00:00 10:00:00 t; BLAYNE TAVAREZ M.D. ity of [place]OS [place] Physici ans 2018-11-27 2018-11-27 AppointTIMOTHY Hilliard Multispecia [id number] Univers 10:30:00 10:30:00 t; BLAYNE TAVAREZ M.D. lty - ity of [place] CISNEROS [facility] Physici ans 2018-10-30 2018-10-30 AppointTIMOTHY Murphy Pulmonary & [id number] Univers 13:20:00 13:20:00 t; ERNESTO MCCULLOUGH M.D. Sleep i ty of [place] OROZCO [facility] ans 2018-10-02 2018-10-02 AppointTIMOTHY Hilliard Neurology - [id number] Univers 14:00:00 14:00:00 t; HEMANTH TAVAREZ M.D. [place] i ty of [place] SAXENA [facility] Physici ans 2018-08-20 2018-08-20 AppointTIMOTHY Hilliard UTP [id number] Univers 08:00:00 08:00:00 t; HEMANTH TAVAREZ M.D. i ty of [place] SAXENA [place] Physici [facility] 2018-07-11 2018-07-11 Outpatient [facility] [id number] [facility] 09:30:00 09:30:00 2018-06-05 2018-06-05 Appointmen TIMOTHY TAVAREZ Rheumatolog [id number] Univers 09:30:00 09:30:00 t; BLAYNE TAVAREZ M.D. y ity of BINH, M.D. [place] Physici ans 2018-05-17 2018-05-17 Appointmen JOSEPH ONOFRE UTP Orthopedics [id number] Univers 13:30:00 13:30:00 t; Selene [facility]NOFRE at [facility] ity o f Selene RUIZ [place] Physici ans 2018-03-09 2018-03-09 AppointTIMOTHY Gann [id number] Univers 14:20:00 14:20:00 t; [place] GREENE it y [place], [place] Magdalena GREENE M.D. [facility] 2018-02-27 2018-02-27 Appointmen TIMOTHY MCCULLOUGH Pulmonary & [id number] Univers 14:00:00 14:00:00 t; ERNESTO MCCULLOUGH M.D. Sleep i ty of [place] OROZCO [place] Physici ans 2017-12-27 2017-12-27 AppointTIMOTHY Olmos [id number] Univers 15:30:00 15:30:00 t; [facility] 2017-12-18 2017-12-18 AppointTIMOTHY Hilliard [id number] Univers 09:30:00 09:30:00 t; BLAYNE TAVAREZ M.D. [place] ity of BINH, M.D. [place] Physici ans 2017-08-22 2017-08-22 AppointTIMOTHY Murphy Pulmonary & [id number] Univers 13:20:00 13:20:00 t; ERNESTO MCCULLOUGH M.D. Sleep i ty of [place] OROZCO [place] Physici ans 2017-08-22 2017-08-22 AppointTIMOTHY Ganna [id number] Univers 08:40:00 08:40:00 t; [place] GREENE it y of [place], [place] JC Physici Anand. ans 2017-07-18 2017-07-18 Appointmen TIMOTHY MCCULLOUGH General [id number] Univers 15:00:00 15:00:00 t; ERNESTO MCCULLOUGH M.D. [facility] ity [place] OROZCO [place] Physici ans 2017-07-18 2017-07-18 Appointmen TIMOTHY BURRIS [id number] Univers 15:00:00 15:00:00 t; [facility] 2017-06-16 2017-06-16 Appointmen TIMOTHY TAVAREZ Martin [id number] Univers 10:30:00 10:30:00 t; BLAYNE TAVAREZ M.D. [facility] ity [place] CISNEROS [place] Physici ans 2017-06-07 2017-06-07 AppointTIMOTHY Olmos [facility] [id number] Univers 08:00:00 08:00:00 t; LINUS CAMPBELL ity [facility] ans 2017-06-06 2017-06-06 AppointTIMOTHY Hilliard Neurology [id number] Univers 08:00:00 08:00:00 t; HEMANTH TAVAREZ M.D. i ty of [place] SAXENA [facility] 2017-05-31 2017-05-31 AppointTIMOTHY Olmos [id number] Univers 14:15:00 14:15:00 t; LINUS CAMPBELL ity of [facility] 2017-05-17 2017-05-17 AppointTIMOTHY Hilliard Neurology [id number] Univers 09:45:00 09:45:00 t; HEMANTH TAVAREZ M.D. i ty of [place] SAXENA [place] Physici ans 2017-02-28 2017-02-28 AppointTIMOTHY Gann [place] [id number] Univers 08:40:00 08:40:00 t; [place] GREENE [facility] it y of [facility], [facility] SIMTASNEEM Physici M.Glenny. ans 2017-02-21 2017-02-21 Appointmen TIMOTHY MCCULLOUGH Pulmonary & [id number] Univers 15:40:00 15:40:00 t; ERNESTO MCCULLOUGH M.D. Sleep i ty of [place] [facility] 2017-01-31 2017-01-31 Appointmen MARTIN, TIMOTHY UTP [id number] Univers 08:00:00 08:00:00 t; SHAKA SALAZAR ity of ECHO [place] [facility] 2017-01-24 2017-01-24 Appointmen TIMOTHY MCCULLOUGH Pulmonary & [id number] Univers 14:00:00 14:00:00 t; ERNESTO MCCULLOUGH M.D. Sleep i ty of [place] [facility] 2016-12-20 2016-12-20 Appointmen TIFFAGHAYDEE, [facility] UTP [id number] Univers 08:20:00 08:20:00 t; [place] GREENE [facility] ans 2016-12-19 2016-12-19 Appointmen DAYSI, TIMOTHY UTP [id number] Univers 09:00:00 09:00:00 t; BLAYNE TAVAREZ M.D. ity of [place] [facility] [place] [facility] 2016-10-25 2016-10-25 Appointmen SADIA, TIMOTHY UTP [id number] Univers 15:40:00 15:40:00 t; ERNESTO MCCULLOUGH M.D. i ty of [place] [facility] [place] [facility] 2016-06-20 2016-06-20 [facility] DAYSI[facility] TIMOTHY UTP [id number] Univers 09:00:00 09:00:00 t; BLAYNE TAVAREZ M.D. ity of [place] [facility] [place] [facility] 2016-01-12 2016-01-12 Appointmen SADIA, TIMOTHY UTP [id number] Univers 15:20:00 15:20:00 t; ERNESTO MCCULLOUGH M.D. i ty of [place] [facility] [place] [facility] 2016-01-11 2016-01-11 Appointmen DAYTON, TIMOTHY UTP [id number] Univers 08:00:00 08:00:00 t; NOVA BURRIS ity of ECHOII [place] [facility] ans 2016-01-05 2016-01-05 Appointmen SADIA, TIMOTHY UTP [id number] Univers 15:40:00 15:40:00 t; ERNESTO MCCULLOUGH M.D. i ty of [place] [facility] ans 2015-12-22 2015-12-22 [facility] TIM[facility]HY TAVAREZ UTP [id number] Univers 09:00:00 09:00:00 t; BLAYNE TAVAREZ M.D. ity of BINH, M.D. [place] [facility] ans 2015-11-16 2015-11-16 [facility] TIMOTHY BANKS [id number] Univers 08:30:00 08:30:00 t; CHUCHO BANKS, ity of [place] RANKIN [place] [facility] ans 2015-10-29 2015-10-29 [facility] TIM[facility]HY BURRIS [id number] Univers 10:00:00 10:00:00 t; DAYTON, ECHOII ity of ECHOII [facility] ans 2015-10-05 2015-10-05 [facility] TIM[facility]HY BURRIS UTP [id number] Univers 14:00:00 14:00:00 t; DAYTON, ECHOII ity of ECHOII [place] [facility] ans 2015-06-22 2015-06-22 [facility] TIM[facility]HY TAVAREZ UTP [id number] Univers 11:30:00 11:30:00 t; BLAYNE TAVAREZ M.D. ity of [place] [facility] [place] [facility] 2013-06-27 2013-06-27 Outpatient 3 3 [id number] 9 15:00:57 15:00:56 2013-06-19 2013-06-19 Outpatient 3 3 [id number] 10:00:30 10:00:30 2013-04-10 2013-04-10 Outpatient 3 3 [id number] 8 10:05:50 10:05:49 2013-02-18 2013-02-18 Outpatient 3 3 [id number] 6 09:15:19 09:15:18 2012-12-17 2012-12-17 Outpatient 3 3 [id number] 5 11:30:55 11:30:54 Results Test Description Test Time Test Comments Results Result Comments Source [QL] CMP W/EGFR 2020-03-24 16:06:00 Test Item Value Reference Range Interpretation Comme nts GLUCOSE; Normal (test code 81 mg/dl 65-139 N N on-fasting reference = 1547-9) interval UREA NITROGEN (BUN) (test 18 mg/dl 7-25 N code = UREA NITROGEN (BUN)) CREATININE (test code = 0.78 mg/dl 0.50-1.10 N CREATININE) eGFR NON-AFR. GIBRALTARIAN 89 {ML/MIN/1.7} See_Comment N [ Automated message] The (test code = eGFR NON-AFR. s ystem which generated this GIBRALTARIAN) result transmit ayad reference range : > OR = 60. The reference r tim was not used to interpr et this result as maria m l/abnormal. eGFR (test 103 {ML/MIN/1.7} See_Comment N [Automated message] The code = eGFR system [facility] generated this GIBRALTARIAN) result transmit ayad reference range : > OR = 60. The reference r tim was not used to interpr et this result as maria m l/abnormal. BUN/CREATININE RATIO (test NOT APPLICABLE 08-11 code = BUN/CREATININE RATIO) SODIUM (test code = SODIUM) 139 mmol/L 135-146 N POTASSIUM (test code = 3.9 mmol/L 3.5-5.3 N POTASSIUM) CHLORIDE (test code = 103 mmol/L 98-110 N CHLORIDE) CARBON DIOXIDE (test code = 28 mmol/L 20-32 N CARBON DIOXIDE) CALCIUM (test code = 9.5 mg/dl 8.6-10.2 N CALCIUM) PROTEIN, TOTAL (test code = 6.9 g/dl 6.1-8.1 N PROTEIN, TOTAL) ALBUMIN (test code = 4.5 g/dl 3.6-5.1 N ALBUMIN) GLOBULIN (test code = 2.4 {G/DL CALC} 1.9-3.7 N GLOBULIN) ALBUMIN/GLOBULIN RATIO 1.9 {CALC} 1.0-2.5 N (test code = ALBUMIN/GLOBULIN RATIO) BILIRUBIN, TOTAL; Normal 0.4 mg/dl 0.2-1.2 N (test code = 55630-0) ALKALINE PHOSPHATASE (test 73 u/l 31-125 N code = ALKALINE PHOSPHATASE) AST; Normal (test code = 18 u/l 10-35 N 1916-6) ALT; Normal (test code = 14 u/l 6-29 N 1742-6) [facility][QL] CREATINE KINASE, [id number] 16:06:00 Test Item Value Reference Range Interpretation Comments CREATINE KINASE, TOTAL (test code = 81 u/l 29-143 N CREATINE KINASE, TOTAL) [facility][] URINALYSIS, [id number] 16:06:00 Test Item Value Reference Range Interpretation Comments COLOR; Normal (test YELLOW YELLOW N code = 5778-6) APPEARANCE (test code CLEAR CLEAR N = APPEARANCE) SPECIFIC GRAVITY; 1.014 1.001-1.035 N Normal (test code = 2965-2) PH; Normal (test code 6.0 5.0-8.0 N = 2756-5) GLUCOSE; Normal (test NEGATIVE NEGATIVE N code = 1547-9) BILIRUBIN; Normal NEGATIVE NEGATIVE N (test code = 67707-2) KETONES; Normal (test NEGATIVE NEGATIVE N code = 61877-8) OCCULT BLOOD; Normal NEGATIVE NEGATIVE N (test code = 02392-5) PROTEIN; Normal (test NEGATIVE NEGATIVE N code = 73283-5) NITRITE; Normal (test NEGATIVE NEGATIVE N code = 87460-4) LEUKOCYTE ESTERASE NEGATIVE NEGATIVE N (test code = LEUKOCYTE ESTERASE) WBC; Normal (test code NONE SEEN See_Comment N [Aut omated message] = 6690-2) The system [employer] generated this result transmitted ref erence range: < OR = 5 . The reference range was not used to int erpret this result as normal/abnormal . RBC; Normal (test code NONE SEEN See_Comment N [Aut omated message] = 789-8) The system [employer] generated this result transmitted ref erence range: < OR = 2 . The reference range was not used to int erpret this result as normal/abnormal . SQUAMOUS EPITHELIAL NONE SEEN See_Comment N [Automa ayad message] CELLS; Normal (test The syst em which code = 08156-0) generated th is result transmitted ref erence range: < OR = 5 . The reference range was not used to int erpret this result as normal/abnormal . BACTERIA; Normal (test NONE SEEN NONE SEEN N code = 630-4) HYALINE CAST; Normal NONE SEEN NONE SEEN N (test code = 48453-8) [facility][] CBC (INCLUDES DIFF/PLT)2020-03-24 16:06:00 Test Item Value Reference Range Interpretation Comments WHITE BLOOD CELL COUNT 8.2 {Thousand/u} 3.8-10.8 N (test code = WHITE BLOOD CELL COUNT) RED BLOOD CELL COUNT (test 4.79 {Million/uL} 3.80-5.10 N code = RED BLOOD CELL COUNT) HEMOGLOBIN; Normal (test 14.4 g/dl 11.7-15.5 N code = 12130-6) HEMATOCRIT; Normal (test 43.4 % 35.0-45.0 N code = 4544-3) MCV; Normal (test code = 90.6 fL 80.0-100.0 N 787-2) MCHC; Normal (test code = 33.2 g/dl 32.0-36.0 N 34091-6) RDW; Normal (test code = 13.4 % 11.0-15.0 N 788-0) PLATELET COUNT; Normal 353 {Thousand/u} 140-400 N (test code = 777-3) MPV; Normal (test code = 10.4 fL 7.5-12.5 N 44713-7) ABSOLUTE NEUTROPHILS (test 5150 {cells/uL} 3800-7309 N code = ABSOLUTE NEUTROPHILS) ABSOLUTE LYMPHOCYTES (test 2263 {cells/uL} 850-3900 N code = ABSOLUTE LYMPHOCYTES) ABSOLUTE MONOCYTES (test 566 {cells/uL} 200-950 N code = ABSOLUTE MONOCYTES) ABSOLUTE EOSINOPHILS (test 148 {cells/uL} 15-500 N code = ABSOLUTE EOSINOPHILS) ABSOLUTE BASOPHILS (test 74 {cells/uL} 0-200 N code = ABSOLUTE BASOPHILS) NEUTROPHILS (test code = 62.8 % N NEUTROPHILS) LYMPHOCYTES (test code = 27.6 % N LYMPHOCYTES) MONOCYTES; Normal (test 6.9 % N code = 08778-4) EOSINOPHILS; Normal (test 1.8 % N code = 91087-7) BASOPHILS; Normal (test 0.9 % N code = 38876-3) [facility][QL] C-REACTIVE [id number] 16:06:00 Test Item Value Reference Range Interpretation Comments C-REACTIVE PROTEIN (test code = 5.7 mg/L <8.0 N C-REACTIVE PROTEIN) REPORT COMMENT:FASTING:[facility][QL] PROTEIN, TOTAL AND PROTEIN [id number] 12:03:00 Test Item Value Reference Range Interpretation Comments PROTEIN, TOTAL (test 6.9 g/dl 6.1-8.1 N code = PROTEIN, TOTAL) ALBUMIN (test code = 4.2 g/dl 3.8-4.8 N ALBUMIN) EGJUP-6-YAHNONWTA 0.2 g/dl 0.2-0.3 N (test code = JMBIX-0-XNQBWEAMZ) TCUUM-7-CIJQGZUVS 0.7 g/dl 0.5-0.9 N (test code = TSOLB-6-MVJUTJLTL) BETA 1 GLOBULIN (test 0.5 g/dl 0.4-0.6 N code = BETA 1 GLOBULIN) BETA 2 GLOBULIN (test 0.4 g/dl 0.2-0.5 N code = BETA 2 GLOBULIN) GAMMA GLOBULINS (test 0.9 g/dl 0.8-1.7 N code = GAMMA GLOBULINS) INTERPRETATION (test See Comment Normal code = Electrophoretic INTERPRETATION) Pattern [facility][QL] CMP [id number] 12:03:00 Test Item Value Reference Range Interpretation Comments GLUCOSE; Normal 86 mg/dl 65-139 N Non-fasting (test code = reference inter josi 1547-9) UREA NITROGEN (BUN) 15 mg/dl 7-25 N (test code = UREA NITROGEN (BUN)) CREATININE (test 0.67 mg/dl 0.50-1.10 N code = CREATININE) eGFR NON- 103 {ML/MIN/1.7} > OR = 60 N GIBRALTARIAN (test code = eGFR NON-) eGFR 120 {ML/MIN/1.7} > OR = 60 N GIBRALTARIAN (test code = eGFR ) BUN/CREATININE NOT APPLICABLE 6-22 RATIO (test code = BUN/CREATININE RATIO) SODIUM (test code = 140 mmol/L 135-146 N SODIUM) POTASSIUM (test 4.0 mmol/L 3.5-5.3 N code = POTASSIUM) CHLORIDE (test code 106 mmol/L 98-110 N = CHLORIDE) CARBON DIOXIDE 26 mmol/L 20-32 N (test code = CARBON DIOXIDE) CALCIUM (test code 9.0 mg/dl 8.6-10.2 N = CALCIUM) PROTEIN, TOTAL 6.9 g/dl 6.1-8.1 N (test code = PROTEIN, TOTAL) ALBUMIN (test code 4.1 g/dl 3.6-5.1 N = ALBUMIN) GLOBULIN (test code 2.8 {G/DL CALC} 1.9-3.7 N = GLOBULIN) ALBUMIN/GLOBULIN 1.5 {CALC} 1.0-2.5 N RATIO (test code = ALBUMIN/GLOBULIN RATIO) BILIRUBIN, TOTAL; 0.5 mg/dl 0.2-1.2 N Normal (test code = 50164-7) ALKALINE PHSPHATASE 53 u/l 31-125 N (test code = ALKALINE PHSPHATASE) AST; Normal (test 17 u/l 10-35 N code = 1916-6) ALT; Normal (test 13 u/l 6-29 N code = 1742-6) [facility][] CREATINE KINASE, [id number] 12:03:00 Test Item Value Reference Range Interpretation Comments CREATINE KINASE, TOTAL (test code = 65 u/l 29-143 N CREATINE KINASE, TOTAL) [facility][] SED RATE BY MODIFIED [id number] 12:03:00 Test Item Value Reference Range Interpretation Comments SED RATE BY MODIFIED WESTERGREN (test 6 mm/h < OR = 20 N code = SED RATE BY MODIFIED WESTERGREN) [facility][QL] URINALYSIS, [id number] 12:03:00 Test Item Value Reference Range Interpretation Comments COLOR; Normal (test code = 5778-6) YELLOW YELLOW N APPEARANCE (test code = APPEARANCE) CLEAR CLEAR N SPECIFIC GRAVITY; Normal (test code 1.014 1.001-1.035 N = 2965-2) PH; Normal (test code = 2756-5) 6.5 5.0-8.0 N GLUCOSE; Normal (test code = NEGATIVE NEGATIVE N 1547-9) BILIRUBIN; Normal (test code = NEGATIVE NEGATIVE N 18980-0) KETONES; Normal (test code = NEGATIVE NEGATIVE N 83854-9) OCCULT BLOOD; Normal (test code = NEGATIVE NEGATIVE N 00669-9) PROTEIN; Normal (test code = NEGATIVE NEGATIVE N 58453-9) NITRITE; Normal (test code = NEGATIVE NEGATIVE N 82754-0) LEUKOCYTE ESTERASE (test code = NEGATIVE NEGATIVE N LEUKOCYTE ESTERASE) WBC; Normal (test code = 6690-2) NONE SEEN < OR = 5 N RBC; Normal (test code = 789-8) 0-2 < OR = 2 N SQUAMOUS EPITHELIAL CELLS (test 0-5 < OR = 5 code = 60844-1) BACTERIA; Normal (test code = NONE SEEN NONE SEEN N 630-4) HYALINE CAST; Normal (test code = NONE SEEN NONE SEEN N 56829-1) [facility][QL] CBC (INCLUDES DIFF/PLT)2019-07-01 12:03:00 Test Item Value Reference Range Interpretation Comments WHITE BLOOD CELL COUNT 7.6 {Thousand/u} 3.8-10.8 N (test code = WHITE BLOOD CELL COUNT) RED BLOOD CELL COUNT (test 4.34 {Million/uL} 3.80-5.10 N code = RED BLOOD CELL COUNT) HEMAGLOBIN; Normal (test 13.4 g/dl 11.7-15.5 N code = 75499-9) HEMATOCRIT; Normal (test 39.8 % 35.0-45.0 N code = 4544-3) MCV; Normal (test code = 91.7 fL 80.0-100.0 N 787-2) MCHC; Normal (test code = 33.7 g/dl 32.0-36.0 N 12907-5) RDW; Normal (test code = 13.1 % 11.0-15.0 N 788-0) PLATELET COUNT; Normal 324 {Thousand/u} 140-400 N (test code = 777-3) MPV; Normal (test code = 10.2 fL 7.5-12.5 N 09933-7) ABSOLUTE NEUTROPHILS (test 4811 {cells/uL} 8967-5863 N code = ABSOLUTE NEUTROPHILS) ABSOLUTE LYMPHOCYTES (test 1946 {cells/uL} 850-3900 N code = ABSOLUTE LYMPHOCYTES) ABSOLUTE MONOCYTES (test 661 {cells/uL} 200-950 N code = ABSOLUTE MONOCYTES) ABSOLUTE EOSINOPHILS (test 122 {cells/uL} 15-500 N code = ABSOLUTE EOSINOPHILS) ABSOLUTE BASOPHILS (test 61 {cells/uL} 0-200 N code = ABSOLUTE BASOPHILS) NEUTROPHILS (test code = 63.3 % N NEUTROPHILS) LYMPHOCYTES (test code = 25.6 % N LYMPHOCYTES) MONOCYTES; Normal (test 8.7 % N code = 58185-2) EOSINOPHILS; Normal (test 1.6 % N code = 81944-7) BASOPHILS; Normal (test 0.8 % N code = 39948-0) [facility][QL] IMMUNOFIXATION, [id number] 12:03:00 Test Item Value Reference Range Interpretation Comments INTERPRETATION (test See Comment Normal pattern. No code = INTERPRETATION) monoc lonal proteins detected. [facility][] C-REACTIVE [id number] 12:03:00 Test Item Value Reference Range Interpretation Comments C-REACTIVE PROTEIN (test code = 5.4 mg/L <8.0 N C-REACTIVE PROTEIN) [facility]] CBC (INCLUDES DIFF/PLT)2018-11-27 11:20:01 Test Item Value Reference Range Interpretation Comments WBC (test code = 6690-2) 8.9 {K/CMM} 3.7-10.4 RBC (test code = 789-8) 4.36 {M/CMM} 4.20-5.40 Hgb (test code = 718-7) 13.6 g/dl 12.0-16.0 Hct (test code = 56286-6) 41.4 % 36.0-48.0 MCV (test code = 787-2) 95.0 fL 80.0-98.0 MCH; Above High Threshold (test 31.3 pg 27.0-31.0 code = 785-6) MCHC (test code = 786-4) 33.0 g/dl 32.0-36.0 RDW (test code = 788-0) 13.9 % 11.5-14.5 Platelet (test code = 83445-3) 293 {K/CMM} 133-450 Mean Platelet Volume (test code 8.3 fL 7.4-10.4 = 31896-7) [facility]] [id number] 11:20:01 Test Item Value Reference Range Interpretation Comments Segmented Neutrophils (test code 70.6 % 45.0-75.0 = 22863-0) Monocytes (test code = 30789-7) 6.2 % 2.0-12.0 Lymphocytes (test code = 01981-9) 21.5 % 20.0-40.0 Eosinophils (test code = 03295-2) 0.8 % 0.0-4.0 Basophils (test code = 706-2) 0.9 % 0.0-1.0 Segs-Bands # (test code = 6.3 {K/CMM} 1.5-8.1 50824-0) Lymphocytes # (test code = 1.9 {K/CMM} 1.0-5.5 17298-4) Monocytes # (test code = 71401-5) 0.6 {K/CMM} 0.0-0.8 Eosinophils # (test code = 0.1 {K/CMM} 0.0-0.5 99896-9) Basophils # (test code = 52181-6) 0.1 {K/CMM} 0.0-0.2 [facility]] URINALYSIS, [id number] 11:20:01 Test Item Value Reference Range Interpretation Comments UA Turbidity (test code = 69174-1) Clear Clear UA Spec Grav (test code = 5810-7) 1.005 <=1.030 UA pH (test code = 5803-2) 6.0 5.0-8.0 UA Protein (test code = 47427-2) Negative Negative UA Glucose (test code = 24782-0) Negative Negative UA Ketones (test code = 76494-3) Negative Negative UA Bili (test code = 5770-3) Negative Negative UA Blood (test code = 5794-3) Negative Negative UA Nitrite (test code = 5802-4) Negative Negative UA Leuk Est (test code = 5799-2) Negative Negative UA RBC (test code = 15316-7) <1 0-2 UA Sq Epi (test code = 10325-0) Occasional Few Urine Hyaline Casts (test code = 1 {/LPF} 0-2 04648-7) UA Color (test code = 5778-6) Ltyellow UROBILINOGEN (test code = 31994-7) <=1.0 0.1-1.0 [facility]] CMP [id number] 11:20:01 Test Item Value Reference Range Interpretation Comments Sodium Level 139 {mEq/l} 135-145 (test code = 2951-2) Potassium Level 3.7 {mEq/l} 3.5-5.1 (test code = 2823-3) Chloride Level 103 {mEq/l} 95-109 (test code = 2075-0) Carbon Dioxide 29 {mEq/l} 24-32 (test code = 8-9) AGAP (test code = 10.7 {mEq/l} 10.0-20.0 72445-7) Glucose Lvl (test 83 mg/dl 70-99 Adult refe rence range code = 2345-7) values reflec t the clinical guidel inesof the [place] Diabet es Association. Creatinine Lvl 0.70 mg/dl 0.50-1.40 (test code = 2160-0) Blood Urea 18 mg/dl 7-22 Nitrogen (test code = 3094-0) BUN/Creatinine 26 6-25 Ratio; Above High Threshold (test code = 3097-3) Total Protein 7.6 g/dl 6.4-8.4 (test code = 2885-2) Albumin Lvl (test 4.4 g/dl 3.5-5.0 code = 1751-7) Globulin (test 3.2 g/dl 2.7-4.2 code = 69963-4) A/G Ratio (test 1.4 0.7-1.6 code = 1759-0) Calcium Level 9.1 mg/dl 8.5-10.5 Total (test code = 38742-0) ALT (test code = 25 u/l 0-65 1743-4) AST (test code = 24 u/l 0-37 83083-2) Alk Phos (test 74 u/l 39-136 The pediatric reference code = 1783-0) ranges for th is test represent a CLSI-basedtrans ference of the CALIPER jorge abase of pediatric refer ence intervals to [facility] [place] analyzer (Clinical Biochemistry 46 (2013): 8301-5502). [facility] [employer] [facility] has not internally validated these reference ranges and therefore they should be used only in th e context of a thoroughcl inical assessment. Bili Total (test 0.3 mg/dl 0.2-1.3 code = 1974-2) eGFR (test code = 103 The eGFR i s calculated 53779-2) {ML/MIN/1.7} using the CKD-E PI formula. In mos t young, healthyindividu als the eGFR will be >9 0 mL/min/1.73m2. The eGFR declines with a ge. AneGFR of 60-89 may be normal in some population s, particularly th e elderly, forwhom the CKD -EPI formula has not been extensively josi idated. Use of the eGFR isnot recommended in the following populations:Ind ividuals with unstable c reatinine concentrations, including patient s and those with seri ous co-morbid conditions.Corazon ents with extremes in mus ya mass or diet.The jorge a above are obtained fr om the National Kidney Disease Education Progr am(NKDEP) which scot morales recommends that when the eGFR is used in patientswith ex tremes of body mass index for purposes of silvia g dosing, the eGFR should be multiplied by t he estimated BMI. [facility]] CREATINE KINASE, [id number] 11:20:01 Test Item Value Reference Range Interpretation Comments Creatine Kinase (test code = 2157-6) 133 u/l 12-191 [facility]] C-REACTIVE [id number] 11:20:01 Test Item Value Reference Range Interpretation Comments CRP (test code = CRP) 5.6 mg/L <=2.9 [facility]] CBC (INCLUDES DIFF/PLT)2018-06-05 10:35:01 Test Item Value Reference Range Interpretation Comments WBC (test code = 6690-2) 6.6 {K/CMM} 3.7-10.4 RBC (test code = 789-8) 4.63 {M/CMM} 4.20-5.40 Hgb (test code = 718-7) 14.3 g/dl 12.0-16.0 Hct (test code = 92861-0) 42.9 % 36.0-48.0 MCV (test code = 787-2) 92.7 fL 80.0-98.0 MCH (test code = 785-6) 30.9 pg 27.0-31.0 MCHC (test code = 786-4) 33.3 g/dl 32.0-36.0 RDW (test code = 788-0) 14.1 % 11.5-14.5 Platelet (test code = 85915-1) 264 {K/CMM} 133-450 Mean Platelet Volume (test code 9.1 fL 7.4-10.4 = 86669-6) [facility]] [id number] 10:35:01 Test Item Value Reference Range Interpretation Comments Segmented Neutrophils (test code 66.0 % 45.0-75.0 = 03396-8) Monocytes (test code = 80220-2) 7.9 % 2.0-12.0 Lymphocytes (test code = 85110-6) 24.5 % 20.0-40.0 Eosinophils (test code = 04066-4) 1.1 % 0.0-4.0 Basophils (test code = 706-2) 0.5 % 0.0-1.0 Segs-Bands # (test code = 4.4 {K/CMM} 1.5-8.1 54549-5) Lymphocytes # (test code = 1.6 {K/CMM} 1.0-5.5 25804-1) Monocytes # (test code = 43318-1) 0.5 {K/CMM} 0.0-0.8 Eosinophils # (test code = 0.1 {K/CMM} 0.0-0.5 10584-9) [facility]] CMP [id number] 10:35:01 Test Item Value Reference Range Interpretation Comments Sodium Level 140 {mEq/l} 135-145 (test code = 2951-2) Potassium Level 3.6 {mEq/l} 3.5-5.1 (test code = 2823-3) Chloride Level 106 {mEq/l} 95-109 (test code = 5-0) Carbon Dioxide 24 {mEq/l} 24-32 (test code = 2027-9) AGAP (test code = 13.6 {mEq/l} 10.0-20.0 36378-4) Glucose Lvl (test 96 mg/dl 70-99 Adult refe rence range code = 2345-7) values reflec t the clinical guidel inesof the [place] Diabet es Association. Creatinine Lvl 0.60 mg/dl 0.50-1.40 (test code = 2160-0) Blood Urea 21 mg/dl 7-22 Nitrogen (test code = 3094-0) BUN/Creatinine 35 6-25 Ratio; Above High Threshold (test code = 3097-3) Total Protein 8.0 g/dl 6.4-8.4 (test code = 2885-2) Albumin Lvl (test 4.3 g/dl 3.5-5.0 code = 1751-7) Globulin (test 3.7 g/dl 2.7-4.2 code = 62733-6) A/G Ratio (test 1.2 0.7-1.6 code = 1759-0) Calcium Level 9.1 mg/dl 8.5-10.5 Total (test code = 30014-5) ALT (test code = 17 u/l 0-65 1743-4) AST (test code = 21 u/l 0-37 04234-3) Bili Total (test 0.4 mg/dl 0.2-1.3 code = 1974-2) Alk Phos (test 66 u/l 39-136 code = 1783-0) eGFR (test code = 108 The eGFR i s calculated 35134-8) {ML/MIN/1.7} using the CKD-E PI formula. In mos t young, healthyindividu als the eGFR will be >9 0 mL/min/1.73m2. The eGFR declines with a ge. AneGFR of 60-89 may be normal in some population s, particularly th e elderly, forwhom the CKD -EPI formula has not been extensively josi idated. Use of the eGFR isnot recommended in the following populations:Ind ividuals with unstable c reatinine concentrations, including patient s and those with seri ous co-morbid conditions.Corazon ents with extremes in mus ya mass or diet.The jorge a above are obtained fr om the National Kidney Disease Education Progr am(NKDEP) which additiona lly recommends that when the eGFR is used in patientswith ex tremes of body mass index for purposes of silvia g dosing, the eGFR should be multiplied by t he estimated BMI. [facility]] CREATINE KINASE, [id number] 10:35:01 Test Item Value Reference Range Interpretation Comments Creatine Kinase (test code = 2157-6) 67 u/l 12-191 [facility]] C-REACTIVE [id number] 10:35:01 Test Item Value Reference Range Interpretation Comments CRP (test code = CRP) 4.2 mg/L <=2.9 [facility]] URINALYSIS, [id number] 10:35:01 Test Item Value Reference Range Interpretation Comments UA Color (test code = 5778-6) Ltyellow UA Turbidity (test code = 48701-1) Clear Clear UA Spec Grav (test code = 5810-7) 1.011 <=1.030 UA pH (test code = 5803-2) 7.0 5.0-8.0 UA Protein (test code = 86031-2) Negative Negative UA Glucose (test code = 70276-6) Negative Negative UA Ketones (test code = 83430-0) Negative Negative UA Bili (test code = 5770-3) Negative Negative UA Blood (test code = 5794-3) Negative Negative UROBILINOGEN (test code = 50942-8) <=1.0 0.1-1.0 UA Nitrite (test code = 5802-4) Negative Negative UA Leuk Est (test code = 5799-2) Negative Negative UA RBC (test code = 41634-9) 2 {/HPF} 0-2 UA WBC (test code = 32561-5) <1 0-5 UA Bacteria (test code = 73887-8) Occasional None Seen UA Mucus (test code = 8247-9) Few None Seen UA Sq Epi (test code = 98665-4) Few Few [facility]] XRAY CHEST 2 VWS [id number] 10:07:00 Test Item Value Reference Range Interpretation Comments XR CHEST 2 VWS EXAM: XR CHEST 2 VWS DATE: (test code = XR 06/05/2018 10:16 AM CDT CHEST 2 VWS) INDICATION: Shortness of Breath COMPARISON: None. TECHNIQUE: PA and lateral views FINDINGS: PA and lateral chest x-rays reveal no lung parenchymal or pleural abnormalities. The cardiomediastinal silhouette, hilar, and pulmonary vascular structures as well as the regional osseous and chest wall structures are normal in appearance. IMPRESSION: No cardiopulmonary abnormalities are detected. 06/05/2018 10:40 AM CDT [facility] Manuel [facility] Physicians[U] XRAY KNEE 4 OR MORE VWS BILATERAL [id number] 2018-05-17 13:05:00Images acquired, not reported on this accession number. [facility]] CMP [id number] 10:20:00 Test Item Value Reference Range Interpretation Comments GLUCOSE; Normal 89 mg/dl 65-99 N Fasting refe rence (test code = interval 1547-9) UREA NITROGEN (BUN) 15 mg/dl 7-25 N (test code = UREA NITROGEN (BUN)) CREATININE (test 0.61 mg/dl 0.50-1.10 N code = CREATININE) eGFR NON- 108 {ML/MIN/1.7} > OR = 60 N [place]IBR[place] (test code = eGFR NON-) eGFR 125 {ML/MIN/1.7} > OR = 60 N [place] (test code = eGFR ) BUN/CREATININE NOT APPLICABLE 6-22 RATIO (test code = BUN/CREATININE RATIO) SODIUM (test code = 138 mmol/L 135-146 N SODIUM) POTASSIUM (test 4.4 mmol/L 3.5-5.3 N code = POTASSIUM) CHLORIDE (test code 103 mmol/L 98-110 N = CHLORIDE) CARBON DIOXIDE 26 mmol/L 20-32 N (test code = CARBON DIOXIDE) CALCIUM (test code 9.4 mg/dl 8.6-10.2 N = CALCIUM) PROTEIN, TOTAL 7.1 g/dl 6.1-8.1 N (test code = PROTEIN, TOTAL) ALBUMIN (test code 4.3 g/dl 3.6-5.1 N = ALBUMIN) GLOBULIN (test code 2.8 {G/DL CALC} 1.9-3.7 N = GLOBULIN) ALBUMIN/GLOBULIN 1.5 {CALC} 1.0-2.5 N RATIO (test code = ALBUMIN/GLOBULIN RATIO) BILIRUBIN, TOTAL; 0.4 mg/dl 0.2-1.2 N Normal (test code = 38769-4) ALKALINE PHSPHATASE 51 u/l 33-115 N (test code = ALKALINE PHSPHATASE) AST; Normal (test 21 u/l 10-35 N code = 1916-6) ALT; Normal (test 15 u/l 6-29 N code = 1742-6) [facility]] CREATINE KINASE, [id number] 10:20:00 Test Item Value Reference Range Interpretation Comments CREATINE KINASE, TOTAL (test code = 66 u/l 29-143 N CREATINE KINASE, TOTAL) [facility]] SED RATE BY DANILO [id number] 10:20:00 Test Item Value Reference Range Interpretation Comments SED RATE BY MODIFIED MAGALIE (test 6 mm/h < OR = 20 N code = SED RATE BY MODIFIED MAGALIE) [facility]] URINALYSIS, [id number] 10:20:00 Test Item Value Reference Range Interpretation Comments COLOR; Normal (test code = 5778-6) YELLOW YELLOW N APPEARANCE (test code = APPEARANCE) CLEAR CLEAR N SPECIFIC GRAVITY; Normal (test code 1.011 1.001-1.035 N = 2965-2) PH; Normal (test code = 2756-5) 7.0 5.0-8.0 N GLUCOSE; Normal (test code = NEGATIVE NEGATIVE N 1547-9) BILIRUBIN; Normal (test code = NEGATIVE NEGATIVE N 08910-8) KETONES; Normal (test code = NEGATIVE NEGATIVE N 50723-3) OCCULT BLOOD; Normal (test code = NEGATIVE NEGATIVE N 50405-4) PROTEIN; Normal (test code = NEGATIVE NEGATIVE N 93538-7) NITRITE; Normal (test code = NEGATIVE NEGATIVE N 62590-0) LEUKOCYTE ESTERASE (test code = NEGATIVE NEGATIVE N LEUKOCYTE ESTERASE) WBC; Normal (test code = 6690-2) NONE SEEN < OR = 5 N RBC; Normal (test code = 789-8) NONE SEEN < OR = 2 N SQUAMOUS EPITHELIAL CELLS (test 0-5 < OR = 5 code = 61417-5) BACTERIA; Normal (test code = NONE SEEN NONE SEEN N 630-4) HYALINE CAST; Normal (test code = NONE SEEN NONE SEEN N 21452-9) [facility]] CBC (INCLUDES DIFF/PLT)2017-11-02 10:20:00 Test Item Value Reference Range Interpretation Comments WHITE BLOOD CELL COUNT 5.2 {Thousand/u} 3.8-10.8 N (test code = WHITE BLOOD CELL COUNT) RED BLOOD CELL COUNT (test 4.28 {Million/uL} 3.80-5.10 N code = RED BLOOD CELL COUNT) HEMAGLOBIN; Normal (test 13.1 g/dl 11.7-15.5 N code = 73316-0) HEMATOCRIT; Normal (test 38.9 % 35.0-45.0 N code = 4544-3) MCV; Normal (test code = 90.9 fL 80.0-100.0 N 787-2) MCHC; Normal (test code = 33.7 g/dl 32.0-36.0 N 43976-4) RDW; Normal (test code = 13.5 % 11.0-15.0 N 788-0) PLATELET COUNT; Normal 261 {Thousand/u} 140-400 N (test code = 777-3) MPV; Normal (test code = 10.5 fL 7.5-12.5 N 22464-1) ABSOLUTE NEUTROPHILS (test 3208 {cells/uL} 4801-9106 N code = ABSOLUTE NEUTROPHILS) ABSOLUTE LYMPHOCYTES (test 1461 {cells/uL} 850-3900 N code = ABSOLUTE LYMPHOCYTES) ABSOLUTE MONOCYTES (test 400 {cells/uL} 200-950 N code = ABSOLUTE MONOCYTES) ABSOLUTE EOSINOPHILS (test 78 {cells/uL} 15-500 N code = ABSOLUTE EOSINOPHILS) ABSOLUTE BASOPHILS (test 52 {cells/uL} 0-200 N code = ABSOLUTE BASOPHILS) NEUTROPHILS (test code = 61.7 % N NEUTROPHILS) LYMPHOCYTES (test code = 28.1 % N LYMPHOCYTES) MONOCYTES; Normal (test 7.7 % N code = 31088-9) EOSINOPHILS; Normal (test 1.5 % N code = 50421-4) BASOPHILS; Normal (test 1.0 % N code = 05273-3) [facility]] C-REACTIVE [id number] 10:20:00 Test Item Value Reference Range Interpretation Comments C-REACTIVE PROTEIN (test code = 2.2 mg/L <8.0 N C-REACTIVE PROTEIN) [facility] BASIC METABOLIC PANEL [id number] 14:54:01 Test Item Value Reference Range Interpretation Comments Glucose Lvl (test 97 mg/dl 70-99 Adult refe rence range code = 2345-7) values reflec t the clinical guidel inesof the [place] Diabet es Association. Blood Urea 18 mg/dl 7-22 Nitrogen (test code = 3094-0) Creatinine Lvl 0.60 mg/dl 0.50-1.40 (test code = 2160-0) Sodium Level 142 {mEq/l} 135-145 (test code = 2951-2) Potassium Level 3.9 {mEq/l} 3.5-5.1 (test code = 2823-3) Chloride Level 104 {mEq/l} 95-109 (test code = 5-0) Carbon Dioxide 28 {mEq/l} 24-32 (test code = 2027-) AGAP (test code = 13.9 {mEq/l} 10.0-20.0 87651-5) Calcium Level 9.0 mg/dl 8.5-10.5 Total (test code = 61231-5) eGFR (test code = 109 The eGFR i s calculated 73139-1) {ML/MIN/1.7} using the CKD-E PI formula. In mos t young, healthyindividu als the eGFR will be >9 0 mL/min/1.73m2. The eGFR declines with a ge. AneGFR of 60-89 may be normal in some population s, particularly th e elderly, forwhom the CKD -EPI formula has not been extensively josi idated. Use of the eGFR isnot recommended in the following populations:Ind ividuals with unstable c reatinine concentrations, including patient s and those with seri ous co-morbid conditions.Corazon ents with extremes in mus ya mass or diet.The jorge a above are obtained fr om the National Kidney Disease Education Progr am(NKDEP) which scot morales recommends that when the eGFR is used in patientswith ex tremes of body mass index for purposes of silvia g dosing, the eGFR should be multiplied by t he estimated BMI. [facility]] CREATINE KINASE, [id number] 09:47:00 Test Item Value Reference Range Interpretation Comments CREATINE KINASE, TOTAL 47 u/l 29-143 N SPECI MEN RECEIVED DATE (test code = CREATINE AND TI ME: [id number] KINASE, TOTAL) [facility]] SED RATE BY MODIFIED [id number] 09:47:00 Test Item Value Reference Range Interpretation Comments SED RATE BY MODIFIED 2 mm/h < OR = 20 N SPECIME N RECEIVED DATE MAGALIE (test code = AND TIME: 914449820888 SED RATE BY MODIFIED WESTERGREN) [facility]] C-REACTIVE [id number] 09:47:00 Test Item Value Reference Range Interpretation Comments C-REACTIVE PROTEIN 3.4 mg/L <8.0 N SPECIMEN RECEIVED DATE (test code = AND TIME: 47 C-REACTIVE PROTEIN) [facility]] T4, [id number] 09:47:00 Test Item Value Reference Range Interpretation Comments T4, FREE (test 1.1 ng/dl 0.8-1.8 N SPECIMEN RECE IVED DATE AND code = T4, FREE) TIME: 0947 [facility]] TSH, 3RD GENERATION W/REFLEX TO FT4 2017-06-06 09:47:00 Test Item Value Reference Range Interpretation Comments TSH, 3RD GENERATION 8.11 {MIU/L} Referenc e Range W/REFLEX TO FT4 > or = (test code = TSH, 20 Years 0.40-4.50 3RD GENERATION W/REFLEX TO FT4) Ranges First trim price 0.26-2.66 Second trimeste r 0.55-2.73 Third trimester 0.43-2.91SPECIM EN RECEIVED DATE A ND TIME: 947 [facility]] VITAMIN D, 25-HYDROXY, [id number] 09:47:00 Test Item Value Reference Range Interpretation Comments VITAMIN 22 ng/ml 30-100 Vitamin D Statu s D,25-OH,TOTAL,IA 25-OH Vitam in D: (test code = VITAMIN Deficie ncy: D,25-OH,TOTAL,IA) <20 ng/mLInsufficie ncy: 20 - 29 ng/mLOptimal: > or = 30 n g/mL For 25-OH Vitamin D testing on patients on D2-supplementat ion and patients for wh om quantitation of D2 and D3 fractions is re quired, the [employer] Energy[employer] D(TM)25-OH VIT D, (D2,D3), LC/MS/MS is recommended: order code 00454 (pat ients >2yrs). For mor e information on this test, go to:http://educa tion.ponUp.[employer] /faq/FAQ16 3(This link is being provided for informational/e ducational purposes only.) SPECIMEN RECEIVED DATE A ND TIME: [id number] [facility]] ACETYLCHOLINE RECEPTOR BINDING ANTIBODY 2017-06-06 09:45:00 Test Item Value Reference Range Interpretation Comments ACETYLCHOLINE RECEPTOR <0.30 Refer ence Ranges for BINDING ANTIBODY (test Acety lcholine Receptor code = ACETYLCHOLINE Binding Antibody: RECEPTOR BINDING Negative: < or =0.30 ANTIBODY) nmol/LEquivocal : 0.31-0.49 nmol/ L Positive: > or =0.50 nmol/LSPECIMEN RECEIVED DATE AND TIME: [facility]] ACETYLCHOLINE RECEPTOR MODULATING ANTIBODY 2017-06-06 09:45:00 Test Item Value Reference Interpretation Comments Range ACETYLCHOLINE 12 {% Reference Rang e: RECEPTOR BINDING} < 32% MODULATING ANTIBODY (test BINDING INHIBITION This code = test was develo ped and its ACETYLCHOLINE analytical RECEPTOR performancechar acteristics MODULATING have been deter mined by [employer] ANTIBODY) [facility] melgar. It has not beencleared or approved by FDA. This assay has been validatedpursua nt to the CLIA regulations and is used for clinicalpurpose s.SPECIMEN RECEIVED DATE A ND TIME: [id number] [facility]] ACETYLCHOLINE RECEPTOR BLOCKING ANTIBODY 2017-06-06 09:45:00 Test Item Value Reference Range Interpretation Comments ACETYLCHOLINE REC BLOC AB <15 <15 SP ECIMEN RECEIVED DATE (test code = AND TIME: [id number] ACETYLCHOLINE REC BLOC AB) [facility]
[2020-08-09] MEDS ORDERED: ACETAMINOPHEN 500 MG TAB ONE (22:46)
[2020-08-09] MEDS ORDERED: MECLIZINE HCL 12.5 MG TAB ONE (22:46)
--- NOTE | 2020-08-10 00:26 | EDPHYS ---
Physician Documentation [facility] Name: Marya Garcia Age: 50 yrs Sex: Female : 1970 Arrival Date: 08/09/2020 Time: 21:15 Bed 18 Private MD: ED Physician Ricardo Moran HPI: 08/09 22:24 This 50 yrs old Female presents to ER via Ambulatory with complaints of Head mh7 Injury-Adult, Stiff Neck, Nose Bleed. 22:24 The patient or guardian reports injury. The complaints affect the neck and scalp and mh7 base of the skull. Context of injury: The problem was sustained at a relative's home, resulted from a fall, while walking. Onset: The symptoms/episode began/occurred yesterday, at 14:00. Associated signs and symptoms: Loss of consciousness: This patient did not experience any loss of consciousness. Pertinent positives: headache, neck pain, dizziness, Pertinent negatives: patient denies any alcohol consumption, biting tongue, dazed, double vision, incontinence, nausea, seizure, shortness of breath, tinnitus, vomiting, weakness in extremities, generalized weakness. Severity of symptoms: At their worst the symptoms were moderate, last night, in the emergency department the symptoms have improved, mildly. States that she slipped and fell yesterday afternoon due slippery floor. She landed backwards onto wooden floor. She complains of neck pain, headache, dizziness which is aggravation of her vertigo. She had some nose bleeding that stopped and has not reoccurred. Denies any LOC or other injuries.. 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 - Social history:: Smoking status: unknown. ROS: 22:24 Constitutional: Negative for fever, chills, and weight loss, Eyes: Negative for injury, mh7 pain, redness, and discharge, ENT: Negative for injury, pain, and discharge, Cardiovascular: Negative for chest pain, palpitations, and edema, Respiratory: Negative for shortness of breath, cough, wheezing, and pleuritic chest pain, Abdomen/GI: Negative for abdominal pain, nausea, vomiting, diarrhea, and constipation, Back: Negative for injury and pain, : Negative for injury, bleeding, discharge, and swelling, MS/Extremity: Negative for injury and deformity, Skin: Negative for injury, rash, and discoloration, Psych: Negative for depression, anxiety, suicide ideation, homicidal ideation, and hallucinations, Allergy/Immunology: Negative for hives, rash, and allergies, Endocrine: Negative for neck swelling, polydipsia, polyuria, polyphagia, and marked weight changes, Hematologic/Lymphatic: Negative for swollen nodes, abnormal bleeding, and unusual bruising. Exam: 22:24 Constitutional: This is a well developed, well nourished patient who is awake, alert, mh7 and in no acute distress. 22:24 Eyes: Pupils equal round and reactive to light, extra-ocular motions intact. Lids and lashes normal. Conjunctiva and sclera are non-icteric and not injected. Cornea within normal limits. Periorbital areas with no swelling, redness, or edema. ENT: Nares patent. No nasal discharge, no septal abnormalities noted. Tympanic membranes are normal and external auditory canals are clear. Oropharynx with no redness, swelling, or masses, exudates, or evidence of obstruction, uvula midline. Mucous membranes moist. 22:24 Chest/axilla: Normal chest wall appearance and motion. Nontender with no deformity. No lesions are appreciated. Cardiovascular: Regular rate and rhythm with a normal S1 and S2. No gallops, murmurs, or rubs. Normal PMI, no JVD. No pulse deficits. Respiratory: Lungs have equal breath sounds bilaterally, clear to auscultation and percussion. No rales, rhonchi or wheezes noted. No increased work of breathing, no retractions or nasal flaring. Abdomen/GI: Soft, non-tender, with normal bowel sounds. No distension or tympany. No guarding or rebound. No evidence of tenderness throughout. Back: No spinal tenderness. No costovertebral tenderness. Full range of motion. Skin: Warm, dry with normal turgor. Normal color with no rashes, no lesions, and no evidence of cellulitis. MS/ Extremity: Pulses equal, no cyanosis. Neurovascular intact. Full, normal range of motion. Neuro: Awake and alert, GCS 15, oriented to person, place, time, and situation. Cranial nerves II-XII grossly intact. Motor strength 5/5 in all extremities. Sensory grossly intact. Cerebellar exam normal. Normal gait. Psych: Awake, alert, with orientation to person, place and time. Behavior, mood, and affect are within normal limits. 22:24 Head/face: Noted is tenderness, that is moderate, of the neck and scalp and base of the skull. 22:24 Neck: External neck: tenderness, that is moderate, of the occiput, left mid cervical area and left trapezius, C-spine: appears grossly normal, Thyroid: appears normal, Trachea: is midline with no obvious abnormalities, ROM/movement: pain, that is moderate, with rotation to the left, Meningeal signs: are not present, nuchal rigidity, is not appreciated, Lymph nodes: no appreciated lymphadenopathy. Vital Signs: 21:27 BP 118 / 82; Pulse 77; Resp 16; Temp 97.2; Pulse Ox 98% ; Weight 68.95 kg; Height 5 ft. ea 5 in. (165.10 cm); 21:27 Body Mass Index 25.29 (68.95 kg, 165.10 cm) ea [place] Coma Score: 21:27 Eye Response: spontaneous(4). Verbal Response: oriented(5). Motor Response: obeys ea commands(6). Total: 15. 22:24 Eye Response: spontaneous(4). Verbal Response: oriented(5). Motor Response: obeys mh7 commands(6). Total: 15. 21 00:22 Eye Response: spontaneous(4). Verbal Response: oriented(5). Motor Response: obeys mh7 commands(6). Total: 15. MDM: 00:22 Differential diagnosis: Contusion of head, Hematoma on head, Intracranial bleed- mh7 Concussion without LOC. Data reviewed: vital signs, nurses notes, radiologic studies, CT scan. Data interpreted: Pulse oximetry: on room air is 98 %. Interpretation: normal. Counseling: I had a detailed discussion with the patient and/or guardian regarding: the historical points, exam findings, and any diagnostic results supporting the discharge/admit diagnosis, radiology results, the need for outpatient follow up, to return to the emergency department if symptoms worsen or persist or if there are any questions or concerns that arise at home. Response to treatment: the patient's symptoms have resolved after treatment, the patient's blood pressure is in an acceptable range, mental status has returned to baseline, the patient no longer shows bradycardia, the patient is not short of breath, the patient is not tachycardic, the patient's pain is gone, the patient's temperature has normalized. 00:25 Patient medically screened. mh7 08/09 22:20 Order name: CT Head C Spine [facility] Administered Medications: 08/09 22:31 Drug: Meclizine 25 mg Route: PO; zb 23:20 Follow up: Response: No adverse reaction; Marked relief of symptoms zb 22:31 Drug: Tylenol 1000 mg Route: PO; zb 23:20 Follow up: Response: No adverse reaction; Marked relief of symptoms; Pain is decreased zb Disposition: 08/10/20 00:25 Discharged to Home. Impression: Head Injury, Cervical Strain, Concussion. - Condition is Stable. - Discharge Instructions: Cervical Sprain, Cdoh-ba-Crgy, Concussion, Adult, Xozz-lb-Pure, Head Injury, Adult, Vonr-vv-Sdim. - Prescriptions for Meclizine 25 mg Oral Tablet - take 1 tablet by ORAL route every 8 hours As needed; 15 tablet. - Medication Reconciliation Form, Thank You Letter, Antibiotic Education, Prescription Opioid Use form. - Follow up: Private Physician; When: 1 - 2 days; Reason: Worsening of condition, Recheck today's complaints, Continuance of care, Re-evaluation by your physician. - Problem is new. - Symptoms have improved. Signatures: Dispatcher [employer] Rigoberto Valles RN RN em Antunez, Elena, RN RN ea Holmes, Maurice, MD MD mh7 Brown, Zipporah, RN RN zb Corrections: (The following items were deleted from the chart) 08/10 00:32 00:25 08/10/2020 00:25 Discharged to Home. Impression: Head Injury; Cervical Strain; em Concussion. Condition is Stable. Forms are Medication Reconciliation Form, Thank You Letter, Antibiotic Education, Prescription Opioid Use. Follow up: Private Physician; When: 1 - 2 days; Reason: Worsening of condition, Recheck today's complaints, Continuance of care, Re-evaluation by your physician. Problem is new. Symptoms have improved. 7
--- NOTE | 2020-08-10 00:26 | ER ---
Nurse's Notes [facility] Name: Marya Garcia Age: 50 yrs Sex: Female : 1970 Arrival Date: 08/09/2020 Time: 21:15 Bed 18 Private MD: Diagnosis: Head Injury;Cervical Strain;Concussion Presentation: 08/09 21:27 Chief complaint: Patient states: Reports she had a fall yesterday, she slipped and fell ea back onto a wood floor, reported she hit the back of her head, denies LOC. Reported today she woke up with a stiff neck and back, blurred vision, nose bleed, headache and vertigo. Coronavirus screen: At this time, the client does not indicate any symptoms associated with coronavirus-19. Ebola Screen: No symptoms or risks identified at this time. Mechanism of Injury: The problem was sustained at home, resulted from a fall, from a standing position. Initial Sepsis Screen: Does the patient meet any 2 criteria? No. Patient's initial sepsis screen is negative. Does the patient have a suspected source of infection? No. Patient's initial sepsis screen is negative. Risk Assessment: Do you want to hurt yourself or someone else? Patient reports no desire to harm self or others. 21:27 Method Of Arrival: Ambulatory ea 21:27 Acuity: DAPHNE 4 ea 22:46 Onset of symptoms was August 09, 2020. zb Triage Assessment: 21:32 General: Appears in no apparent distress. Behavior is appropriate for age. Pain: ea Complains of pain in base of the skull and left posterior aspect of neck. Neuro: Level of Consciousness is awake, alert, obeys commands, Oriented to person, place, time. Derm: Skin is pink, warm \T\ dry. 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 - Social history:: Smoking status: unknown. Screenin:43 Abuse screen: Denies threats or abuse. Denies injuries from another. Nutritional zb screening: No deficits noted. Tuberculosis screening: No symptoms or risk factors identified. Fall Risk None identified. Assessment: 22:18 Reassessment: ECP at bedside. zb 22:35 General: Appears in no apparent distress. uncomfortable. Pain: Complains of pain in zb left trapezius and left mid cervical area and occiput and neck and base of the skull Pain currently is 6 out of 10 on a pain scale. Neuro: Level of Consciousness is awake, alert, obeys commands, Oriented to person, place, time, situation, Moves all extremities. Full function Speech is normal, Reports headache Denies blurred vision. Cardiovascular: Capillary refill < 3 seconds Patient's skin is warm and dry. Respiratory: Airway is patent Respiratory effort is even, unlabored, Respiratory pattern is regular, symmetrical. Derm: Skin is intact, is healthy with good turgor. Musculoskeletal: Range of motion: intact in all extremities. Vital Signs: 21:27 BP 118 / 82; Pulse 77; Resp 16; Temp 97.2; Pulse Ox 98% ; Weight 68.95 kg; Height 5 ft. ea 5 in. (165.10 cm); 21:27 Body Mass Index 25.29 (68.95 kg, 165.10 cm) ea [place] Coma Score: 21:27 Eye Response: spontaneous(4). Verbal Response: oriented(5). Motor Response: obeys ea commands(6). Total: 15. 22:24 Eye Response: spontaneous(4). Verbal Response: oriented(5). Motor Response: obeys 7 commands(6). Total: 15. 06/21 00:22 Eye Response: spontaneous(4). Verbal Response: oriented(5). Motor Response: obeys mh7 commands(6). Total: 15. ED Course: 08/09 21:15 Patient arrived in ED. cf2 21:29 Triage completed. ea 21:55 Bernardo Ferrer PA is PHCP. jmm 21:55 Ricardo Moran MD is Attending Physician. jmm 22:03 Ricardo Moran MD is Attending Physician. 7 22:08 Alma Delia Duenas, MEÑO is Primary Nurse. zb 22:43 Patient has correct armband on for positive identification. Bed in low position. Call zb light in reach. Side rails up X 1. quality assurance monitor body on. Door closed. Noise minimized. 22:44 No provider procedures requiring assistance completed. Patient did not have IV access zb during this emergency room visit. 22:57 CT Head C Spine In Process Unspecified. EDMS Administered Medications: 22:31 Drug: Meclizine 25 mg Route: PO; zb 23:20 Follow up: Response: No adverse reaction; Marked relief of symptoms zb 22:31 Drug: Tylenol 1000 mg Route: PO; zb 23:20 Follow up: Response: No adverse reaction; Marked relief of symptoms; Pain is decreased zb Outcome: 08/10 00:25 Discharge ordered by MD. luna 00:31 Discharged to home ambulatory, with family. em 00:31 Condition: stable 00:31 Discharge instructions given to patient, Instructed on discharge instructions, follow up and referral plans. medication usage, Demonstrated understanding of instructions, follow-up care, medications, Prescriptions given X 1. 00:32 Patient left the ED. em Signatures: Dispatcher [employer] EDMS Bernardo Ferrer PA PA jmm Munoz, Edgar, RN Ena Breen RN RN ea Frazier, Celesta 2 Ricardo Moran MD MD mh7 Brown, Zipporah, RN RN zb
[2020-08-10 00:54] VITALS: BP 118/82; TEMP 97.2; O2SAT 98
--- NOTE | 2020-08-10 12:06 | RAD REPORT ---
EXAM DESCRIPTION: CT - [facility] - 08/10/2020 7:07 am CLINICAL HISTORY: Trauma. TECHNIQUE: Axial, coronal, and sagittal images through the brain were performed in the absence of in travenous contrast. CT of the cervical spine was performed without contrast. Axial, coronal, and sagittal reconstructions were created and sent to PACS. These exams were performed according to our departmental dose-optimization program which includes use of Automated Exposure Control, adjustment of the mA and/or kV according to patient size and/or use o f iterative reconstruction technique. COMPARISON: CT head from February 01, 2017. Soft tissue CT neck from September 01, 2018. FINDINGS: CT Head: The brain parenchyma appears unremarkable. There is no intra-axial or extra-axial bleed seen. There i s no mass or mass effect. The ventricles are normal in size shape and configuration. The orbital cont ents appear unremarkable. The visualized paranasal sinuses and mastoid air cells are patent. No fracture is identified. CT cervical spine: No acute osseous abnormality identified. Vertebral body height and alignment are maintained. No atlan todental interval widening. Atlantoaxial alignment is maintained. Minimal multilevel tiny posterior d isc osteophyte complexes, with no significant central canal or neuroforaminal narrowing throughout th e cervical spine. Paraspinal soft tissues: Unremarkable. IMPRESSION: 1. No acute intracranial abnormality identified. 2. No acute osseous abnormality identified in the cervical spine. Electronically signed by: Veronica Velasquez MD 08/09/2020 11:18 PM CDT Due to temporary technical issues with the PACS/Fluency reporting system, reports are being signed by the in house radiologists without review as a courtesy to insure prompt reporting. The interpreting radiologist is fully responsible for the content of the report.
== END 2020-08-10 00:32 | disposition home or self-care (01) ==
LOC: ER 21:12
DX: S06.0X0A Concussion without loss of consciousness, initial encounter (principal); S16.1XXA Strain of muscle, fascia and tendon at neck level, initial encounter; W01.0XXA Fall on same level from slipping, tripping and stumbling without subsequent striking against object, initial encounter; Y92.009 Unspecified place in unspecified non-institutional (private) residence as the place of occurrence of the external cause; M34.9 Systemic sclerosis, unspecified; I27.20 Pulmonary hypertension, unspecified; J45.909 Unspecified asthma, uncomplicated; H40.9 Unspecified glaucoma
CPT/HCPCS: 70450; 72125; 99284